=== PATIENT | female | born 1970 | race Caucasian/White ===

== ENCOUNTER 2019-06-10 06:00 | Outpatient (RCR) | payer MEDICARE, SELFPAY | END 2019-07-10 00:01 | LOC: PULRHB 06:00 | PROVIDERS: Family Provider Family Medicine; Visit Provider Family Medicine | DX: J44.9 Chronic obstructive pulmonary disease, unspecified (principal) | CPT/HCPCS: G0237 ×2; G0238 ×3; G0239 ==

== ENCOUNTER 2019-07-16 06:00 | Outpatient (RCR) | payer MEDICARE, SELFPAY | END 2019-08-10 23:59 | disposition home or self-care (01) | LOC: PULRHB 06:00 | PROVIDERS: Family Provider Family Medicine; PCP Family Medicine; Visit Provider Family Medicine | DX: I27.20 Pulmonary hypertension, unspecified (principal) | CPT/HCPCS: G0237 ==

== ENCOUNTER → 2019-07-24 14:55 | Outpatient (BNVA) | payer MEDICARE, SELFPAY | PROVIDERS: Family Provider Family Medicine; PCP Family Medicine; Visit Provider Anesthesiology | DX: M54.9 Dorsalgia, unspecified (principal); M79.602 Pain in left arm; M79.651 Pain in right thigh; M79.652 Pain in left thigh; Z79.891 Long term (current) use of opiate analgesic | CPT/HCPCS: 99214 ==

== ENCOUNTER 2019-08-14 12:34 | Outpatient (RCR) | payer MEDICARE, SELFPAY | END 2019-09-08 23:59 | disposition home or self-care (01) | LOC: PULRHB 12:34 | PROVIDERS: Family Provider Family Medicine; PCP Family Medicine; Visit Provider Family Medicine | DX: Z01.89 Encounter for other specified special examinations (principal) ==

== ENCOUNTER → 2019-09-21 11:32 | Outpatient (BNVA) | payer MEDICARE, SELFPAY | PROVIDERS: Family Provider Family Medicine; PCP Family Medicine; Visit Provider Nurse Practitioner | DX: M54.5 Low back pain (principal); M79.651 Pain in right thigh; M79.652 Pain in left thigh; M79.602 Pain in left arm; M50.90 Cervical disc disorder, unspecified, unspecified cervical region; Z79.891 Long term (current) use of opiate analgesic | CPT/HCPCS: 99214 ==

== ENCOUNTER 2019-09-25 19:27 | Emergency (ER) | payer MEDICARE, SELFPAY ==
[2019-09-25] VITALS (10 sets, daily range): BP systolic 150–194; BP diastolic 90–125; PULSE 82–113; RESP 12–22; TEMP 37.5; O2SAT 94–98; BMI 60.9
--- NOTE | 2019-09-25 20:17 | W.ED.CHESTPA ---
HPI - Chest Pain General: Chief Complaint: Chest Pain Stated Complaint: cp/sob Time Seen by Provider: 09/25/19 19:47 History of Present Illness: HPI narrative: 48-year-old female comes in with multiple complaints. Patient complains of chest pain leg pain some shortness of breath she does not associate the chest pain with exertion. She is extremely anxious. She denies vomiting or diarrhea dysuria urgency or frequency or fever. The symptoms been going on for several days. Associated symptoms: Deny abdominal pain, dyspnea, fever(s), nausea or vomiting Review of Systems Const: Denies: fever, chills, body aches, change in appetite, fatigue or malaise ENMT: Denies: throat pain, ear pain, nasal discharge or nasal congestion Card: Reports: chest pain; Denies: edema, shortness of breath on exertion or shortness of breath when lying down Resp: Denies: shortness of breath, productive cough or non-productive cough GI: Denies: abdominal pain, nausea, vomiting, vomiting blood, coffee grounds in vomit, diarrhea, constipation, bloating, blood in stool or black tarry stool : Denies: flank pain, difficulty urinating, painful urination, urinary frequency or urinary urgency Skin/Breast: Denies: rash or itching PFSH ED PFSH: Medical History (Updated 09/25/19 @ 23:48 by Arden Blake DO) Acute bilateral low back pain Acute neck pain Acute radicular low back pain Arm numbness Cervical disc disorder, unspecified, unspecified cervical region Chronic pain of left upper extremity Disc disorder Encounter for long-term opiate analgesic use Fibromyalgia muscle pain Morbid (severe) obesity due to excess calories Neoplasm related pain (acute) (chronic) Opioid contract exists Type 2 diabetes mellitus without complications Surgical History (Updated 09/21/19 @ 12:08 by SONYA Cohn) H/O elbow surgery H/O mastectomy 2011 H/O tubal ligation History of appendectomy History of cholecystectomy 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 Social History Smoking and tobacco status: never smoked Alcohol intake: never Physical Exam Const: COMMON NORMALS: no apparent distress GENERAL APPEARANCE: cooperative and comfortable ORIENTATION/CONSCIOUSNESS: Yes awake, Yes oriented to person, Yes oriented to place and Yes oriented to time HENMT: COMMON NORMALS: normocephalic, head/scalp atraumatic, hearing grossly normal bilaterally, external ears normal, EAC's normal, TM's normal bilaterally, nasal mucous membranes and turbinates normal, moist oral mucous membranes and oropharynx normal HEAD & SCALP: normocephalic and atraumatic NOSE: nasal mucous membranes and turbinates normal EXTERNAL EAR: Yes external ears normal EXTERNAL AUDITORY CANAL: EAC's normal TYMPANIC MEMBRANE: TM's normal bilaterally Eye: COMMON NORMALS: PERRL, EOMs intact bilaterally, conjunctivae normal and no scleral icterus CONJUNCTIVA: Yes conjunctivae normal PUPIL: Yes PERRL Neck/C-Spine: COMMON NORMALS: full ROM, no lymphadenopathy, supple and no JVD Lymph: LYMPHATIC: no lymphadenopathy noted and no lymphedema noted Resp: COMMON NORMALS: normal respiratory effort, no retractions, no use of accessory muscles and clear to auscultation bilaterally AUSCULTATION: clear to auscultation bilaterally Cardio: COMMON NORMALS: no JVD, regular rate, regular rhythm and no murmurs RATE: regular rate RHYTHM: regular rhythm GI: COMMON NORMALS: soft to palpation and no hepatosplenomegaly AUSCULTATION: Yes normoactive bowel sounds PALPATION: Yes soft, No tender, No guarding and Yes no hepatosplenomegaly Extremity: COMMON NORMALS: normal to inspection, normal capillary refill, no clubbing, cyanosis or edema, no calf tenderness and no pedal edema Neuro: SENSORIUM/ORIENTATION: Yes oriented to person, Yes oriented to place and Yes oriented to time Skin: COMMON NORMALS: no rashes or lesions noted GENERAL SKIN EXAM: no rashes or lesions noted Course ED course: CT of the chest shows a abnormality behind the breast however this is unchanged from in the past patient even recognize that this has been present before. At this point we do not find a PE she rules out for chest x-ray based on length of time she had symptoms and normal EKG and troponin. I think we can safely discharge her home she should follow-up with her oncologist for the CT abnormality to see if they recommend any further evaluation. We will also have case management set her up for a stress test. Vital Signs: Vital signs: Vital Signs Temperature 99.5 F 09/25/19 20:21 Pulse Rate 78 09/26/19 03:55 Respiratory Rate 18 09/26/19 03:55 Blood Pressure 175/90 09/26/19 03:55 Pulse Oximetry 96 09/26/19 03:55 MDM - Chest Pain Lab Data: Attestation: I reviewed the patient's lab results. Labs: Lab Results 09/25/19 09/25/19 09/25/19 Range/Units 20:40 20:40 20:40 WBC 8.3 (4.0-10.0) 10^3/ uL RBC 4.51 (4.1-5.3) 10^6/u L Hgb 14.0 (11.5-15.3) g/dL Hct 43.0 (37.0-47.0) % MCV 95.3 (81-99) fL MCH 31.0 (28.0-34.0) pg MCHC 32.6 (30.0-36.0) g/dL RDW 13.2 (12.1-15.1) % Plt Count 258 (130-400) 10^3/c mm MPV 10.4 (7.4-10.4) fL Neut % (Auto) 70.2 % Lymph % (Auto) 21.8 % Tucker % (Auto) 5.5 % Eos % (Auto) 1.7 % Baso % (Auto) 0.2 % Neut # (Auto) 5.8 (1.8-7.7) 10^3/u L Lymph # (Auto) 1.8 (0.8-4.8) 10^3/u L Tucker # (Auto) 0.5 (0.2-0.9) 10^3/u L Eos # (Auto) 0.1 (0.0-0.8) 10^3/u L Baso # (Auto) 0.0 (0.0-0.1) 10^3/u L Nucleated RBC % (a uto) 0 % Nucleated RBCs # 0.0 /100WBC Sodium 136 (136-145) mmol/L Potassium 4.2 (3.5-5.1) mmol/L Chloride 93 L (98-107) mmol/L Carbon Dioxide 30 H (22-29) mmol/L Anion Gap 17.2 (5-19) BUN 15 (6-20) mg/dL Creatinine 0.6 (0.5-0.9) mg/dL GFR Calculation 105.8 (90-130) mL/min Glucose 191 H (65-115) mg/dL Calculated Osmolal ity 283 L (285-295) mOsm/k g Calcium 10.7 H (8.5-10.5) mg/dL Total Bilirubin 0.4 (0.15-1.2) mg/dL AST 21 (0-32) U/L ALT 46 H (0-33) U/L Alkaline Phosphata se 86 (35-105) IU/L Troponin T Baselin e 6 (0-10) ng/mL Troponin T 120 Min [place] (0-10) ng/mL Delta Troponin T (0-10) ABS# NT-Pro-B Natriuret Pep 36 (0-125) pg/mL Total Protein 7.9 (6.6-8.7) g/dL Albumin 5.1 (3.5-5.2) g/dL Globulin 2.8 (1.3-4.6) g/dL Urine Color (Yellow) Urine Appearance (CLEAR) Urine pH (5-7) Ur Specific Gravit y (1.005-1.030) Urine Protein (Negative) Urine Glucose (UA) (Normal) Urine Ketones (Negative) Urine Blood (Negative) Urine Nitrate (Negative) Urine Bilirubin (NEGATIVE) Urine Urobilinogen (Negative) mg/dL Ur Leukocyte Keiko ase (Negative) 09/25/19 09/25/19 Range/Units 20:45 22:20 WBC (4.0-10.0) 10^3/ uL RBC (4.1-5.3) 10^6/u L Hgb (11.5-15.3) g/dL Hct (37.0-47.0) % MCV (81-99) fL MCH (28.0-34.0) pg MCHC (30.0-36.0) g/dL RDW (12.1-15.1) % Plt Count (130-400) 10^3/c mm MPV (7.4-10.4) fL Neut % (Auto) % Lymph % (Auto) % Tucker % (Auto) % Eos % (Auto) % Baso % (Auto) % Neut # (Auto) (1.8-7.7) 10^3/u L Lymph # (Auto) (0.8-4.8) 10^3/u L Tucker # (Auto) (0.2-0.9) 10^3/u L Eos # (Auto) (0.0-0.8) 10^3/u L Baso # (Auto) (0.0-0.1) 10^3/u L Nucleated RBC % (a uto) % Nucleated RBCs # /100WBC Sodium (136-145) mmol/L Potassium (3.5-5.1) mmol/L Chloride (98-107) mmol/L Carbon Dioxide (22-29) mmol/L Anion Gap (5-19) BUN (6-20) mg/dL Creatinine (0.5-0.9) mg/dL GFR Calculation (90-130) mL/min Glucose (65-115) mg/dL Calculated Osmolal ity (285-295) mOsm/k g Calcium (8.5-10.5) mg/dL Total Bilirubin (0.15-1.2) mg/dL AST (0-32) U/L ALT (0-33) U/L Alkaline Phosphata se (35-105) IU/L Troponin T Baselin e (0-10) ng/mL Troponin T 120 Min [place] 6.25 (0-10) ng/mL Delta Troponin T 0.25 (0-10) ABS# NT-Pro-B Natriuret Pep (0-125) pg/mL Total Protein (6.6-8.7) g/dL Albumin (3.5-5.2) g/dL Globulin (1.3-4.6) g/dL Urine Color Yellow (Yellow) Urine Appearance Clear (CLEAR) Urine pH 6 (5-7) Ur Specific Gravit y 1.010 (1.005-1.030) Urine Protein Neg (Negative) Urine Glucose (UA) Norm (Normal) Urine Ketones Negative (Negative) Urine Blood Neg (Negative) Urine Nitrate Negative (Negative) Urine Bilirubin Neg (NEGATIVE) Urine Urobilinogen Norm (Negative) mg/dL Ur Leukocyte Keiko ase Negative (Negative) Imaging Data^: CT Chest: Radiologist's impression: PROCEDURE INFORMATION: Exam: CT Angiography Chest With Contrast Exam date and time: 09/25/2019 12:51 AM Age: 48 years old Clinical indication: Shortness of breath; Chest pain; Prior surgery; Surgery type: Lt breast lumpectomy; Patient HX: HX breast CA, prior pe; Additional info: Dyspnea/chest pain TECHNIQUE: Imaging protocol: Computed tomographic angiography of the chest with intravenous contrast. 3D rendering: MIP and/or 3D reconstructed images were created by the technologist. Total DLP: 603.87 mGy-cm Radiation optimization: All CT scans at this facility use at least one of these dose optimization techniques: automated exposure control; mA and/or kV adjustment per patient size (includes targeted exams where dose is matched to clinical indication); or iterative reconstruction. Contrast material: OMNI 350; Contrast volume: 84 ml; Contrast route: 20G; COMPARISON: CTA Chest-Pulmonary Emb [id number] 03/02/2019 8:30 AM FINDINGS: Pulmonary arteries: Limitation for detailed pulmonary arterial assessment due to film contrast timing delays and diminished contrast intensity most prominent within aorta. No definite visualization of pulmonary embolus. Streak artifact within subsegmental artery to the right upper lung. Aorta: Unremarkable. No aortic aneurysm. No aortic dissection. Lungs: Unremarkable. No consolidation. No masses. Pleural space: Unremarkable. No pneumothorax. No pleural effusion. Heart: Rounded filling defect within the right atrium is slightly larger compared to the prior CT measuring 2.4 cm. Right to left ventricular ratio 0.9. Liver: Fatty infiltration of the liver. Gallbladder and bile ducts: Postoperative cholecystectomy. Spleen: Calcification within the spleen. Lymph nodes: Unremarkable. No enlarged lymph nodes. Bones/joints: Degenerative change of the spine. Soft tissues: Skin thickening of the left breast with stranding surgical change. Posterior left breast in adjacent to the outer chest wall musculature thick-walled low attenuating central cystic or fluid attenuation mass partially containing calcification slightly larger compared to the prior CT measuring 4.8 cm by 3.[address]/CT angio chest PE protcl [id number] IMPRESSION: 1. No visualized pulmonary embolus with limitations secondary to patient body habitus and delayed film contrast timing. 2. Low attenuating central fluid or cystic structure deep posterior left breast or adjacent chest wall slightly larger as compared to 03/02/2019. While the findings could reflect persistent postoperative seroma correlation to other surveillance imaging and recent PET imaging is recommended for complete exclusion of other neoplastic etiology. Correlation for any history of radiation would be useful. 3. Equivocal filling defect within the right atrium versus venous contrast mixing, probably the latter. Correlation to cardiac assessment is recommended. 4. Fatty infiltration of the liver. Radiation Dose CTDIVOL = (mGy): DLP = 603.87 (mGy-cm) Dictated By:Yaquelin Perez DO Discharge Plan Discharge Patient Disposition: Home, Self-Care Clinical Impression: Atypical chest pain Condition: Stable Prescriptions: New aspirin 81 mg tablet,chewable 81 mg PO DAILY Qty: 30 RF: 0 No Action cholecalciferol (vitamin D3) 50,000 unit capsule 50,000 unit PO .WEEKLY RF: 0 albuterol sulfate [ProAir HFA] 90 mcg/actuation HFA aerosol inhaler 1 inh INHALATION DAILY PRN (Reason: Shortness Of Breath) RF: 0 lorazepam [Ativan] 1 mg tablet 1 mg PO TID PRN (Reason: Anxiety) RF: 0 promethazine 25 mg tablet 25 mg PO DAILY PRN (Reason: Nausea) RF: 0 furosemide [Lasix] 20 mg tablet 20 mg PO PRN PRN (Reason: UNKNOWN) RF: 0 potassium chloride 10 mEq capsule, extended release 10 meq PO DAILY PRN (Reason: UNKNOWN) RF: 0 albuterol 90 mcg/actuation aerosol 90 mcg INHALATION DAILY RF: 0 magnesium oxide 400 mg magnesium capsule 800 mg PO BID RF: 0 diltiazem HCl [Cartia XT] 120 mg capsule,extended release 24hr 360 mg PO DAILY RF: 0 Humalog U-100 Insulin 100 unit/mL cartridge 1 sliding scale dose SUBCUT .COMPLEX RF: 0 pseudoephedrine HCl 30 mg tablet 30 mg PO DAILY PRN (Reason: UNKNOWN) RF: 0 metformin 500 mg tablet 500 mg PO BID RF: 0 cholecalciferol (vitamin D3) 2,000 unit tablet 2,000 unit PO DAILY RF: 0 enalapril maleate 10 mg tablet 10 mg PO DAILY RF: 0 rosuvastatin [Crestor] 5 mg tablet 10 mg PO .WEEKLY RF: 0 tizanidine 4 mg tablet 4 mg PO TID PRN (Reason: muscle spasticity) Qty: 90 RF: 1 hydrocodone-acetaminophen 10-325 mg tablet 2 tab PO QID PRN (Reason: pain) 30 Days Qty: 240 RF: 0 Vitamin C 500 mg Tablet 250 mg PO DAILY RF: 0 Discharge Orders: Discharge Order (Routine); Ordered 09/25/19 Ordered By: Arden Blake Referrals: Luis Red MD [Primary Care Provider] - Discharge Diet: Usual diet Discharge Activity: Limit activity as instructed Activity Restrictions/Additional Instructions: Case management will call with appointment for stress testing. Discharge Date/Time: 09/26/19 03:56 Coding Level of Care Code ED Field Project Manager for Payton Carty
--- NOTE | 2019-09-25 20:23 | XR_ITS ---
WS: [id number] XR chest 1V portable [id number] REASON FOR EXAM: dyspnea/cough FINDINGS: The cardiac silhouette is not enlarged. The lung hendrickson are well aerated. There is no pneumonia, pleural effusion, pulmonary edema, or mass e ffect. The hilum and apices normal. There is degenerate changes with spurring to the apophyseal joints. XR/XR chest 1V portable [id number] IMPRESSION: Negative chest for active pathology.
--- NOTE | 2019-09-25 20:23 | ECG_ITS ---
Measurements Intervals [place] Rate: 83 P: 61 ME: 178 QRS: -14 QRSD: 92 T: 32 QT: 378 QTc: 446 SINUS RHYTHM Compared to ECG 07/11/2018 18:15:44 No significant changes Electronically Signed On 09-27-2019 12:44:20 CDT by Spring Paulino [id number]
[2019-09-25 20:53] LABS: Basophils % 0.2 %; Eosinophils # 0.1 10^3/uL (0.0-0.8); Eosinophils % 1.7 %; Lymphocytes # 1.8 10^3/uL (0.8-4.8); Lymphocytes % 21.8 %; Mean Corpuscular HGB Conc 32.6 g/dL (30.0-36.0); Mean Corpuscular Volume 95.3 fL (81-99); Mean Platelet Volume 10.4 fL (7.4-10.4); Monocytes # 0.5 10^3/uL (0.2-0.9); Monocytes % 5.5 %; Neutrophils # 5.8 10^3/uL (1.8-7.7); Neutrophils % 70.2 %; Nucleated Red Blood Cells % 0 %; Platelet Count 258 10^3/cmm (130-400); Red Blood Count 4.51 10^6/uL (4.1-5.3); Red Cell Distribution Width 13.2 % (12.1-15.1); White Blood Count 8.3 10^3/uL (4.0-10.0)
[2019-09-25 21:06] LABS: Troponin(5th) Baseline 6 ng/mL (0-10)
[2019-09-25 21:08] LABS: Add Urine Microscopic? NO
[2019-09-25 21:09] LABS: Bilirubin Urine Neg (NEGATIVE); Blood Urine Neg (Negative); Glucose Urine UA Norm (Normal); Ketones Urine Negative (Negative); Leukocyte Esterase Urine Negative (Negative); Nitrate Urine Negative (Negative); Protein Urine Neg (Negative); Urine Appearance Clear (CLEAR); Urine Color Yellow (Yellow); Urobilinogen Urine Norm (Negative); pH Urine 6 (5-7)
[2019-09-25 21:24] LABS: Alanine Aminotransferase 46 U/L (0-33); Albumin Level 5.1 g/dL (3.5-5.2); Alkaline Phosphatase 86 IU/L (35-105); Anion Gap 17.2 (5-19); Aspartate Amino Transferase 21 U/L (0-32); Blood Urea Nitrogen 15 mg/dL (6-20); Calcium 10.7 mg/dL (8.5-10.5); Carbon Dioxide 30 mmol/L (22-29); Chloride 93 mmol/L (98-107); Globulin 2.8 g/dL (1.3-4.6); Glomerular Filtration Rate 105.8 mL/min (90-130); Glucose 191 mg/dL (65-115); NT Pro B Type Natriuretic Pept 36 pg/mL (0-125); Osmolality Calculated 283 mOsm/kg (285-295); Potassium 4.2 mmol/L (3.5-5.1); Sodium 136 mmol/L (136-145); Total Bilirubin 0.4 mg/dL (0.15-1.2); Total Protein 7.9 g/dL (6.6-8.7)
--- NOTE | 2019-09-25 22:23 | ECG_ITS ---
Measurements Intervals [place] Rate: 79 P: 63 CT: 156 QRS: -7 QRSD: 90 T: 18 QT: 380 QTc: 437 SINUS RHYTHM Compared to ECG 07/11/2018 18:15:44 No significant changes Electronically Signed On 09-27-2019 12:48:58 CDT by Spring Paulino [email or web address]
[2019-09-25 22:49] LABS: Troponin 5 2HR 6.25 ng/mL (0-10); Troponin 5 2HR Delta 0.25 ABS# (0-10)
--- NOTE | 2019-09-25 23:56 | CTR_ITS ---
PROCEDURE INFORMATION: Exam: CT Angiography Chest With Contrast Exam date and time: 09/25/2019 12:51 AM Age: 48 years old Clinical indication: Shortness of breath; Chest pain; Prior surgery; Surgery type: Lt breast lumpectomy; Patient HX: HX breast CA, prior pe; Additional info: Dyspnea/chest pain TECHNIQUE: Imaging protocol: Computed tomographic angiography of the chest with intravenous contrast. 3D rendering: MIP and/or 3D reconstructed images were created by the technologist. Total DLP: 603.87 mGy-cm Radiation optimization: All CT scans at this facility use at least one of these dose optimization techniques: automated exposure control; mA and/or kV adjustment per patient size (includes targeted exams where dose is matched to clinical indication); or iterative reconstruction. Contrast material: OMNI 350; Contrast volume: 84 ml; Contrast route: 20G; COMPARISON: CTA Chest-Pulmonary Emb [id number] 03/02/2019 8:30 AM FINDINGS: Pulmonary arteries: Limitation for detailed pulmonary arterial assessment due to film contrast timing delays and diminished contrast intensity most prominent within aorta. No definite visualization of pulmonary embolus. Streak artifact within subsegmental artery to the right upper lung. Aorta: Unremarkable. No aortic aneurysm. No aortic dissection. Lungs: Unremarkable. No consolidation. No masses. Pleural space: Unremarkable. No pneumothorax. No pleural effusion. Heart: Rounded filling defect within the right atrium is slightly larger compared to the prior CT measuring 2.4 cm. Right to left ventricular ratio 0.9. Liver: Fatty infiltration of the liver. Gallbladder and bile ducts: Postoperative cholecystectomy. Spleen: Calcification within the spleen. Lymph nodes: Unremarkable. No enlarged lymph nodes. Bones/joints: Degenerative change of the spine. Soft tissues: Skin thickening of the left breast with stranding surgical change. Posterior left breast in adjacent to the outer chest wall musculature thick-walled low attenuating central cystic or fluid attenuation mass partially containing calcification slightly larger compared to the prior CT measuring 4.8 cm by 3.[address]/CT angio chest PE protcl [id number] IMPRESSION: 1. No visualized pulmonary embolus with limitations secondary to patient body habitus and delayed film contrast timing. 2. Low attenuating central fluid or cystic structure deep posterior left breast or adjacent chest wall slightly larger as compared to 03/02/2019. While the findings could reflect persistent postoperative seroma correlation to other surveillance imaging and recent PET imaging is recommended for complete exclusion of other neoplastic etiology. Correlation for any history of radiation would be useful. 3. Equivocal filling defect within the right atrium versus venous contrast mixing, probably the latter. Correlation to cardiac assessment is recommended. 4. Fatty infiltration of the liver. Radiation Dose CTDIVOL = (mGy): DLP = 603.87 (mGy-cm)
[2019-09-26] VITALS (9 sets, daily range): BP systolic 175; BP diastolic 90; PULSE 78–105; RESP 12–18; O2SAT 95–97
--- NOTE | 2019-09-26 14:45 | DCPLANNER ---
government relations manager had an outpatient order for a stress test for patient. government relations manager faxed order for stress test to centralized scheduling. government relations manager will call for appointment information.
[2019-09-26] MEDS: iohexol 350 mg/mL 100 mL Btl IV (15:52)
--- NOTE | 2019-09-27 09:37 | DCPLANNER ---
Patient has a follow up appointment scheduled for Tuesday, October 17, 2019 at 9:15 for a stress test.
--- NOTE | 2019-12-04 07:46 | DCPLANNER ---
Patient did not attend stress test.
== END 2019-09-26 03:56 | disposition home or self-care (01) ==
PROVIDERS: Emergency Provider Family Medicine; Family Provider Family Medicine; PCP Family Medicine
DX: R07.89 Other chest pain (principal); E11.9 Type 2 diabetes mellitus without complications; Z79.4 Long term (current) use of insulin
CPT/HCPCS: 12345; 36415; 71045; 71275; 80053; 81003; 83880; 84484; 85025; 93005; 93010; 99284; A9270; Q9967

== ENCOUNTER 2019-11-01 14:31 | Outpatient (CLI) | payer MEDICARE, SELFPAY ==
[2019-11-01 17:49] LABS: Estmated Average Glucose 154
[2019-11-01 17:59] LABS: Basophils % 0.3 %; Eosinophils # 0.2 10^3/uL (0.0-0.8); Eosinophils % 2.2 %; Hematocrit 39.9 % (37.0-47.0); Hemoglobin 12.8 g/dL (11.5-15.3); Lymphocytes # 1.2 10^3/uL (0.8-4.8); Lymphocytes % 17.1 %; Mean Corpuscular HGB Conc 32.1 g/dL (30.0-36.0); Mean Corpuscular Hemoglobin 30.5 pg (28.0-34.0); Mean Corpuscular Volume 95.2 fL (81-99); Mean Platelet Volume 10.7 fL (7.4-10.4); Monocytes # 0.3 10^3/uL (0.2-0.9); Monocytes % 4.5 %; Neutrophils # 5.4 10^3/uL (1.8-7.7); Neutrophils % 75.3 %; Nucleated Red Blood Cells % 0 %; Platelet Count 218 10^3/cmm (130-400); Red Blood Count 4.19 10^6/uL (4.1-5.3); Red Cell Distribution Width 13.2 % (12.1-15.1); White Blood Count 7.2 10^3/uL (4.0-10.0)
[2019-11-01 18:02] LABS: Alanine Aminotransferase 21 U/L (0-33); Albumin Level 4.6 g/dL (3.5-5.2); Alkaline Phosphatase 69 IU/L (35-105); Anion Gap 19.9 (5-19); Aspartate Amino Transferase 17 U/L (0-32); Blood Urea Nitrogen 13 mg/dL (6-20); Calcium 9.9 mg/dL (8.5-10.5); Carbon Dioxide 28 mmol/L (22-29); Chloride 97 mmol/L (98-107); Globulin 3.1 g/dL (1.3-4.6); Glomerular Filtration Rate 88.6 mL/min (90-130); Glucose 257 mg/dL (65-115); Magnesium 1.6 mg/dL (1.7-2.3); Osmolality Calculated 297 mOsm/kg (285-295); Potassium 3.9 mmol/L (3.5-5.1); Sodium 141 mmol/L (136-145); Total Bilirubin 0.3 mg/dL (0.15-1.2); Total Protein 7.7 g/dL (6.6-8.7)
[2019-11-01 21:35] LABS: 25 Hydroxy Vitamin D 22 ng/mL (30-100)
--- NOTE | 2019-11-02 07:23 | ONC FU_ITS ---
Dr. Kenyon Patient Follow-Up Note Patient: Neeru Cedillo Unit #: [id number]: 1970 Dicatated By: Jeremy Kenyon M.D.Date of Visit:Nov 01, 2019 Onc Med Follow-up/Prog Note Chief Complaint: Breast cancer. History of Present Illness: This is a 48 year-old woman with grade 3 invasive ductal carcinoma of the left breast, stage IIB (T2, N1, M0), ER/VT negative and HER-2/enoc negative. She had presented in February 2012 with a lump in the left breast. Mammogram did show some architectural distortion which was new from a study in November 2009. Ultrasound showed an irregular mass measuring 1.0 x 1.3 x 2 cm which was felt to be suspicious. Needle biopsy of the mass did confirm high-grade invasive carcinoma which was ER/VT negative and HER-2/enoc negative. She was then referred to [facility] for further treatment. Evaluation there included breast MRI, and on that study the tumor reportedly measured 2.9 cm. She also underwent staging evaluation with bone scan and CT scans of the chest and abdomen/pelvis. The only significant finding was an indeterminate 1.9 cm hepatic lesion which on MRI was felt to be consistent with benign hemangioma. At that time, she also had biopsy proven involvement in a palpable left axillary lymph node. She had clinical stage IIB disease (T2, N1, M0). She was given neoadjuvant chemotherapy with 4 cycles of Taxotere/cyclophosphamide. She had a good clinical response to the chemotherapy. She then underwent left partial mastectomy and left axillary lymph node dissection on 07/10/2012. Pathology showed residual grade 3/3 invasive ductal carcinoma measuring 1.8 centimeters in maximum diameter. The final margins were negative. There was no involvement in 12 axillary lymph nodes. Her post treatment staging was ypT1c, ypN0. She then completed radiation to the left breast. On a follow-up visit at [facility] in 2015 she was found to have an abnormal breast MRI. Her staging PET/CT reportedly showed involvement in lymph nodes and nerves. She underwent surgical biopsy which confirmed recurrent triple negative breast cancer. Her subsequent treatment included 4 cycles of carboplatin/Taxol chemotherapy followed by radiation. She completed treatment on 06/02/2016. She then continued follow-up at [facility], including regular surveillance mammograms and breast MRI. She also had follow-up with a transport aircrewman and a liver specialist. 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 She has type 2 diabetes. She has mild mitral regurgitation, and her records indicate that she has had heart failure with normal left ventricular function. She also has been evaluated for possible cardiac arrhythmia. In September [address] pulmonary angiogram showed filling defects within a right lower lobe tertiary pulmonary artery suggestive of pulmonary embolism. She started anticoagulation with rivaroxaban, but she had an apparent adverse reaction to it, and she subsequently changed to warfarin. She stopped anticoagulation in September 2014. INTERIM HISTORY: Due to the coronavirus pandemic, she had missed her scheduled followup visit at [facility] in September. She is seen now with multiple complaints. The most significant is that she has had increased pain and swelling in the left chest wall and left arm. She also has increased swelling in the left breast and pain in both breasts. She reports having numbness in the ulnar distribution of the left arm and hand. She has no energy, and her activity has been further limited due to the pain. Her ECOG score is 2. Her appetite varies. She reports having had fever intermittently for a month, though it had quit sometime last month. She has shortness of breath. She has a sensation of having a deep cough. She has discomfort in her chest. She has nausea at least 3 or 4 times a week. She has mild constipation. She has frequent urination. She also has some pain in the lower back. She does not complain of headache. She has dizziness with position changes. She has no other focal neurologic symptoms. Medications: Albuterol Sulfate HFA Aerosol, solution Inhalation PRN, Ativan 0.5 - 1 (1 mg) Tablet Oral t.i.d. PRN, Cartia XT 2 Tablet (of 180 mg) Capsule SR 24 HR Oral daily, Cholecalciferol 2 (09341 Units) Tablet Oral q 14 days, Cholecalciferol 1 (2000 Units) Tablet Oral daily, HumuLIN R Injection Take as Directed, Hydrocodone-Acetaminophen 2 Tablet (of 10-325 mg) Oral four times a day PRN, Lasix 1 Tablet (of 40 mg) Oral daily PRN, Magnesium 2 (400 mg) Capsule Oral b.i.d., metFORMIN HCl 1 Tablet (of 1000 mg) Oral daily, Morphine Sulfate (Concentrate) 0.25 - 0.5 (10 mg/0.5mL) Solution Oral q 2 to 3 hours PRN, Promethazine HCl 1 (25 mg) Tablet Oral q 6 hours PRN, Questran (10 g/dose) Powder Oral Take as Directed, Zanaflex 1 (4 mg) Tablet Oral PRN Allergies: BIAXIN, COMPAZINE, DEMEROL, DILAUDID, DOXYCYCLINE, DROPERIDOL, ERYTHROMYCIN, Metoprolol Tartrate, PCN, TraMADol HCl, VERAPAMIL, Xarelto, and ZOFRAN. Review of Systems: Constitutional - She has no energy. She does some light housework, but she has restrictions due to increased swelling in her left arm. Her appetite comes and goes. Her weight is stable. She reports having had fever for a month, but it quit sometime last month. No fever today. No chills, hot flashes, or night sweats. ECOG score is 2, ENMT - No sinus congestion/drainage. No mouth sores. No sore throat or difficulty swallowing, Hematologic/Lymphatic - No abnormal bruising or bleeding, Breasts - She has swelling in her left breast area and pain in both breasts, Respiratory - No shortness of breath. No cough. No pleuritic pain or hemoptysis, Cardiovascular - No angina pain. No palpitations, Gastrointestinal - She has chronic nausea. No vomiting. No heartburn or acid reflux. She has mild constipation. No blood in the stool or black stools, Genitourinary (F) - No dysuria or hematuria. She has urinary frequency. No urgency or incontinence, Musculoskeletal - She has pain in her left arm and in her lower back, Integumentary - No skin complications, Neurologic - No headaches. She has dizziness with positional changes. She has numbness in her left hand. She has no other focal neurologic symptoms, Psychiatric - She has anxiety and depression. She has chronic insomnia, but lately she has been sleeping all the time. Vital Signs: Performed on Nov 01, 2019 14:35 Height - 64.00 in Weight - 358.6 lbs (HIGH) BSA - 2.51 sq.m BMI - 61.55 (HIGH) Temperature - 97.5 F (LOW) Pulse - 90 /min Respiration - 26 /min BP - 160/90 mm(hg) (HIGH) O2 Sat - 96 % Pain - 7 Physical Examination: Constitutional - She does not appear acutely ill, Eyes - Sclerae nonicteric. Conjunctivae clear, ENMT - No lesions noted in the oral cavity, Hematologic/Lymphatic - No cervical or clavicular adenopathy, Respiratory - Lungs are clear with good air movement bilaterally, Cardiovascular - Heart rhythm is regular. There is a II/ systolic murmur. There is no gallop or rub noted, Breasts - There is some tenderness in the right breast. There is no mass palpable. There is tenderness along with swelling and induration in the left breast. There is no discrete mass palpable. There is significant swelling and induration in the upper left chest wall extending to the anterior axillary fold. The axillary area is also generally tender. There is no discrete mass palpable. There is no axillary adenopathy, Abdomen - Distended. Liver and spleen are not enlarged. There is no abdominal mass or ascites noted and there is no inguinal adenopathy, Extremities - There appears to be some increase in the left arm lymphedema. There is mild pedal edema. Dorsalis pedis pulses are palpable bilaterally, Integumentary - There is no skin eruption, Neurologic - No focal neurologic deficits noted. Impression: 1. The patient was diagnosed in March 2012 with grade 3 invasive ductal carcinoma of the left breast, stage IIB (T2, N1, M0), ER/VT negative and HER-2/enoc negative. 2. Her treatment included neoadjuvant chemotherapy with 4 cycles of cyclophosphamide/Taxotere followed by left partial mastectomy and left axillary lymph node dissection on 07/10/2012. She then completed radiation to the left breast. 3. She had biopsy proven recurrence in the left breast. Her treatment included chemotherapy with 4 cycles of carboplatin/Taxol followed by additional radiation, completed on 06/02/2016. 4. She had evidence of pulmonary embolism by CT pulmonary angiogram in September 2013. She was treated initially with rivaroxaban and subsequently with warfarin. She stopped anticoagulation in September 2014. Her other medical illnesses include: 5. Hypertension. 6. Type II diabetes. 7. Mild asthma. 8. Pulmonary hypertension. 9. Obstructive sleep apnea. 10. She has chronic muscular skeletal pain and fatigue, consistent with fibromyalgia. 11. She has degenerative arthritis/degenerative disease of the spine. 12. Anxiety/depression. 13. She has had evidence of iron deficiency anemia. She presents with multiple complaints, including swelling and pain in the left chest wall/axillary area and pain in both breasts. There is also increased pain/swelling and numbness in the left arm. The findings are suspicious for recurrence in the chest wall and/or axilla. Plan: She will laboratory studies today to include CBC, CMP, sed rate, 25-hydroxy vitamin D level, TSH, and hemoglobin A1c. She will be scheduled for diagnostic mammograms, and she will be scheduled for a restaging PET/CT. She will have further evaluation as indicated. Signed By: Jeremy Kenyon M.D. <<Signature on File>>
== END 2019-11-01 14:32 | disposition home or self-care (01) ==
PROVIDERS: Family Provider Family Medicine; PCP Family Medicine; Visit Provider Internal Medicine Medical Oncology
DX: Z85.3 Personal history of malignant neoplasm of breast (principal); I10 Essential (primary) hypertension; J45.909 Unspecified asthma, uncomplicated; I27.20 Pulmonary hypertension, unspecified; G47.33 Obstructive sleep apnea (adult) (pediatric); M79.7 Fibromyalgia; M47.9 Spondylosis, unspecified; F41.8 Other specified anxiety disorders; E55.9 Vitamin D deficiency, unspecified; I34.0 Nonrheumatic mitral (valve) insufficiency; N63.20 Unspecified lump in the left breast, unspecified quadrant; N64.4 Mastodynia; R53.83 Other fatigue; D50.9 Iron deficiency anemia, unspecified; Z92.21 Personal history of antineoplastic chemotherapy; Z92.3 Personal history of irradiation; Z90.12 Acquired absence of left breast and nipple; Z79.4 Long term (current) use of insulin; Z79.891 Long term (current) use of opiate analgesic; Z86.711 Personal history of pulmonary embolism
CPT/HCPCS: 36415; 80053; 82306; 83036; 83735; 84443; 85025; 99214

== ENCOUNTER 2019-11-02 12:40 | Outpatient (CLI) | payer MEDICARE, SELFPAY ==
--- NOTE | 2019-11-02 13:06 | MM_ITS ---
WS: [id number] BILATERAL DIGITAL DIAGNOSTIC MAMMOGRAM MAMMOGRAPHY WITH CAD CLINICAL INFORMATION: HX OF BREAST CANCER. Left breast lump per patient adjacent to the surgical site . COMPARISON: March 27, 2018 TECHNIQUE: Bilateral CC, MLO, and ML views. FINDINGS: Scattered fibroglandular densities bilaterally. Stable punctate calcifications left breast. Left dominic st parenchymal volume loss with treatment-related changes and skin thickening. This is unchanged from previous. Palpable marker left breast adjacent to the lumpectomy site. No evidence of mammographic abnormality in this area. DUE TO THE PALPABLE NATURE RECOMMEND ULTRASOUND IN THIS AREA LEFT BREAST FOR FURTHER E VALUATION. Right breast is unchanged in appearance. MM/[place] [id number] IMPRESSION: BI-RADS: 0-Incomplete: Need additional imaging evaluation FOLLOW UP: Need Additional Imaging
== END 2019-11-02 12:41 | disposition home or self-care (01) ==
LOC: ONCMED 12:43
PROVIDERS: Family Provider Family Medicine; PCP Family Medicine; Visit Provider Internal Medicine Medical Oncology
DX: Z85.3 Personal history of malignant neoplasm of breast (principal); N63.20 Unspecified lump in the left breast, unspecified quadrant; N64.4 Mastodynia
CPT/HCPCS: 77066

== ENCOUNTER 2019-11-15 10:07 | Outpatient (CLI) | payer MEDICARE, SELFPAY ==
--- NOTE | 2019-11-15 10:15 | US_ITS ---
WS: [id number] ULTRASOUND BREAST LEFT TECHNIQUE: Ultrasound left breast focused area of concern. CLINICAL INFORMATION: DX HISTORY OF BREAST CA, LEFT BREAST LUMP COMPARISON: Diagnostic mammography November 02, 2019 and ultrasound January 09, 2015. Additional prior mamm ograms dating back to January 09, 2015 FINDINGS: Ultrasound left breast 11:00 position in the area of palpable concern and area of previously removed adjacent loop recorder. Additional ultrasound performed at the 1:00, 4:00, and 10:00 positions in the area of patient concern s. There is very dense shadowing tissue at the 11:00 position in the area of reported prior loop recorde r consistent with postoperative fibrosis. In the adjacent area of palpable concern, at the 11:00 position, no evidence of pathologic mass or le nilam. No lesions to target for biopsy in this area. No suspicious lesions identified in the remaining areas of concern at the 1:00, 4:00, 10:00 positions . US/US breast LT complete [id number] IMPRESSION: BI-RADS 2 BENIGN FOLLOW UP: Recommend return to annual diagnostic mammogram
== END 2019-11-15 10:08 | disposition home or self-care (01) ==
LOC: RAD 10:09
PROVIDERS: Visit Provider Internal Medicine Medical Oncology
DX: N63.20 Unspecified lump in the left breast, unspecified quadrant (principal); Z85.3 Personal history of malignant neoplasm of breast
CPT/HCPCS: 76641

== ENCOUNTER 2019-12-01 12:21 | Emergency (ER) | payer MEDICARE, SELFPAY ==
[2019-12-01 12:42] VITALS: BP 183/126; PULSE 82; RESP 18; TEMP 36.8; O2SAT 94; BMI 61.2
--- NOTE | 2019-12-01 13:11 | CTR_ITS ---
PROCEDURE INFORMATION: Exam: CT Abdomen And Pelvis With Contrast Exam date and time: 12/01/2019 1:21 PM Age: 49 years old Clinical indication: Abdominal pain; Generalized; Patient HX: C/O abd pain w constipation x 2 weeks TECHNIQUE: Imaging protocol: Computed tomography of the abdomen and pelvis with intravenous contrast. Radiation optimization: All CT scans at this facility use at least one of these dose optimization techniques: automated exposure control; mA and/or kV adjustment per patient size (includes targeted exams where dose is matched to clinical indication); or iterative reconstruction. Contrast material: OMNI 300; Contrast volume: 95 ml; Contrast route: 20G; COMPARISON: CT abdomen pelvis w con* [id number] 05/10/2019 9:24 PM RADIATION DOSE METRICS: Total DLP: 1841.66 mGy-cm FINDINGS: Liver: Findings consistent with fatty infiltration of the liver are identified. Gallbladder and bile ducts: There has been a cholecystectomy. Pancreas: Normal. No ductal dilation. Spleen: Normal. No splenomegaly. Adrenals: Normal. No mass. Kidneys and ureters: There is a 1.2 cm calcification in the inferior right kidney. No hydronephrosis. Stomach and bowel: There is questionable wall thickening of the transverse colon. For example, as seen on series 2, image 51 and coronal image 70. No pneumatosis. No bowel obstruction. Appendix: No evidence of appendicitis. Intraperitoneal space: Unremarkable. No free air. No significant fluid collection. Vasculature: Unremarkable. No abdominal aortic aneurysm. Lymph nodes: Unremarkable. No enlarged lymph nodes. Bladder: Unremarkable as visualized. Reproductive: Unremarkable as visualized. Bones/joints: Unremarkable. No acute fracture. Soft tissues: There is a small supraumbilical fat containing ventral hernia. CT/CT abdomen pelvis w con* [id number] IMPRESSION: There is questionable localized colitis of the transverse colon as described above.Clinical correlation is advised. Radiation Dose CTDIVOL = (mGy): DLP = 1841.66 (mGy-cm)
[2019-12-01 13:41] LABS: Basophils % 0.2 %; Eosinophils # 0.2 10^3/uL (0.0-0.8); Eosinophils % 3.7 %; Hemoglobin 12.7 g/dL (11.5-15.3); Lymphocytes # 1.1 10^3/uL (0.8-4.8); Lymphocytes % 17.8 %; Mean Corpuscular HGB Conc 31.8 g/dL (30.0-36.0); Mean Corpuscular Hemoglobin 30.6 pg (28.0-34.0); Mean Corpuscular Volume 96.4 fL (81-99); Mean Platelet Volume 9.9 fL (7.4-10.4); Monocytes # 0.4 10^3/uL (0.2-0.9); Monocytes % 6.2 %; Neutrophils # 4.3 10^3/uL (1.8-7.7); Neutrophils % 71.6 %; Nucleated Red Blood Cells % 0 %; Platelet Count 197 10^3/cmm (130-400); Red Blood Count 4.15 10^6/uL (4.1-5.3); Red Cell Distribution Width 13.4 % (12.1-15.1); White Blood Count 5.9 10^3/uL (4.0-10.0)
[2019-12-01 13:45] VITALS: RESP 18
[2019-12-01] MEDS: morphine 4 mg/mL SDV 1 mL IVP (13:45)
[2019-12-01] MEDS: metoclopramide 5 mg/mL SDV 2 mL 10 MG IV (13:46)
[2019-12-01] MEDS: sodium chloride 0.9% 1,000 ML 100 ML IV (13:46)
[2019-12-01 13:56] LABS: Alanine Aminotransferase 30 U/L (0-33); Albumin Level 4.4 g/dL (3.5-5.2); Alkaline Phosphatase 72 IU/L (35-105); Anion Gap 16.3 (5-19); Aspartate Amino Transferase 20 U/L (0-32); Blood Urea Nitrogen 7 mg/dL (6-20); Calcium 9.9 mg/dL (8.5-10.5); Carbon Dioxide 26 mmol/L (22-29); Chloride 100 mmol/L (98-107); Globulin 2.9 g/dL (1.3-4.6); Glomerular Filtration Rate 105.4 mL/min (90-130); Glucose 158 mg/dL (65-115); Lipase 11 U/L (13-60); Osmolality Calculated 285 mOsm/kg (285-295); Potassium 4.3 mmol/L (3.5-5.1); Sodium 138 mmol/L (136-145); Total Bilirubin 0.5 mg/dL (0.15-1.2); Total Protein 7.3 g/dL (6.6-8.7)
[2019-12-01] MEDS: iohexol 300 mg/mL 100 mL Btl IV (14:26)
[2019-12-01 14:29] LABS: Bilirubin Urine Neg (NEGATIVE); Blood Urine Neg (Negative); Glucose Urine UA Norm (Normal); Ketones Urine Negative (Negative); Leukocyte Esterase Urine Negative (Negative); Nitrate Urine Negative (Negative); Protein Urine Neg (Negative); Specific Gravity, Urine 1.005 (1.005-1.030); Urine Appearance SL Hazy (CLEAR); Urine Color Yellow (Yellow); Urobilinogen Urine Norm (Negative); pH Urine 5 (5-7)
--- NOTE | 2019-12-01 14:30 | W.ED.ABDPA2 ---
HPI - Abdominal Pain General: Chief Complaint: Abdominal Pain Stated Complaint: abd pain, constipation, nausea Time Seen by Provider: 12/01/19 12:52 History of Present Illness: HPI narrative: Neeru is a nice 49-year-old female who comes in complaining of abdominal pain. She is been constipated for over a week. She is not vomited but feels as though she needs to. She is concerned about a bowel obstruction. She does admit during this last week she had one small watery stool that was very minimal in amount. She denies any other complaints and has no other concerns. Associated Symptoms: Reports nausea; Denies chills, coffee ground emesis, constipation, GI cramping, diarrhea, dysuria, fever(s), heartburn, hematochezia, hematuria, hematemesis, melena, syncope and vomiting Review of Systems Const: Denies: fever(s), chills, body aches, fatigue, malaise, night sweats or diaphoresis Eyes: Denies: change in vision, blurry vision or blind spots ENMT: Denies: throat pain, odynophagia, hoarseness, ear or mastoid pain, ear discharge, change in hearing or nasal discharge Card: Denies: chest pain, palpitations, irregular heart rhythm, lightheadedness, syncope, pre-syncope, dyspnea on exertion or orthopnea Resp: Denies: dyspnea, productive cough, non-productive cough, wheezing, hemoptysis or chest congestion GI: Reports: abdominal pain and nausea; Denies: vomiting, hematemesis, coffee ground emesis, heartburn, diarrhea, constipation, GI cramping, hematochezia or melena : Denies: flank pain, dysuria, urinary frequency, urinary urgency, oliguria, urinary incontinence or hematuria Musc: Denies: neck pain, back pain, extremity pain, extremity swelling, joint pain, joint swelling, joint redness, joint warmth or joint stiffness Skin/Breast: Denies: rash, pruritus, erythema, skin tenderness or jaundice Neuro: Denies: headache(s), numbness in extremities, weakness in extremities, sensory changes, lack of coordination, difficulty walking, dizziness, vertigo, confusion or Slurred speech present Endo: Denies: polyuria, polydipsia, tired all the time, cold intolerance, excessive sweating, flushing, hot flashes or heat intolerance Eduardo/Lymph: Denies: easy bruising, easy bleeding, petechiae, purpura or enlarged lymph nodes All/Imm: Denies: urticaria, throat swelling, tongue swelling, facial swelling or acute wheezing PFSH ED PFSH: Medical History Acute bilateral low back pain Acute neck pain Acute radicular low back pain Arm numbness Cervical disc disorder, unspecified, unspecified cervical region Chronic pain of left upper extremity Disc disorder Encounter for long-term opiate analgesic use Fibromyalgia muscle pain Morbid (severe) obesity due to excess calories Neoplasm related pain (acute) (chronic) Opioid contract exists Type 2 diabetes mellitus without complications Surgical History H/O elbow surgery H/O mastectomy 2011 H/O tubal ligation History of appendectomy History of cholecystectomy [place] node 2012 with recurrence 2015 Family History Father Hypertension Mother CAD (coronary artery disease) Social History Smoking and tobacco status: never smoked Alcohol intake: never Physical Exam Const: COMMON NORMALS: no acute distress, patient oriented x3, no limitations, healthy appearing and well nourished EXAM LIMITATIONS: no altered mental status GENERAL APPEARANCE: cooperative, well kempt and well developed HENMT: COMMON NORMALS: normocephalic, atraumatic, hearing grossly normal bilaterally, external ears normal, EAC's normal, Normal external nose present and moist oral mucous membranes HEAD & SCALP: normal to inspection, normocephalic and atraumatic FACE & SINUS: normal facial exam and face symmetric NOSE: Normal external nose present and Normal nares present EXTERNAL EAR: Yes external ears normal EXTERNAL AUDITORY CANAL: EAC's normal MOUTH: Normal oral and palatal mucosa present, lip normal and tongue normal Eye: COMMON NORMALS: Equal, round and reactive pupils present, EOMs intact bilaterally, conjunctivae normal and no scleral icterus GENERAL EYE: appearance normal, both eyes and all related structures ALIGNMENT: Yes alignment normal PERIORBITAL: periorbital findings normal EYELID: eyelids normal CONJUNCTIVA: Yes conjunctivae normal SCLERA: sclerae normal PUPIL: Yes Equal, round and reactive pupils present Neck/C-Spine: COMMON NORMALS: full ROM, no lymphadenopathy, supple, no meningeal signs and no JVD GENERAL: Yes normal visual inspection and Yes trachea midline CERVICAL SPINE: Yes cervical ROM normal Chest: COMMONS NORMALS: normal inspection of the chest and normal palpation of entire chest wall Resp: COMMON NORMALS: normal respiratory effort, No retractions, No use of accessory muscles and clear to auscultation bilaterally EFFORT & INSPECTION: Yes able to speak in complete sentences AUSCULTATION: clear to auscultation bilaterally, no crackles, no rales, no rhonchi and no wheezes Cardio: COMMON NORMALS: no JVD, regular rate, regular rhythm, S1 normal heart sound present, S2 normal heart sound present, No gallops present (Cardio), No clicks present (Cardio), No murmurs present (Cardio) and No rub (Cardio) RATE: regular rate RHYTHM: regular rhythm HEART SOUNDS: S1 normal heart sound present, S2 normal heart sound present, no click, no gallops, no murmurs and no rubs GI: COMMON NORMALS: Soft to palpation, No hepatosplenomegaly present and no masses PALPATION: Yes Soft to palpation, No Guarding due to palpation present (GI), No Rigid due to palpation, Yes No hepatosplenomegaly present, No Hernia present, No Palpable mass present and No Pulsatile mass present : COMMON NORMALS: Yes no CVA tenderness BLADDER/KIDNEY EXAM: Yes no CVA tenderness EXTERNAL FEMALE EXAM: No Hernia present Back/Pelvis: COMMON NORMALS: no CVA tenderness, thoracic and lumbar spine normal to inspection, no thoracic nor lumbar tenderness and thoraco-lumbar ROM normal Extremity: COMMON NORMALS: normal to inspection, full ROM, capillary refill normal, no joint enlargement, no clubbing, cyanosis or edema and no calf tenderness Neuro: COMMON NORMALS: patient oriented x3, CN's II-XII intact bilaterally, moves all extremities, no focal motor deficits and no sensory deficits noted MENINGEAL SIGNS: Yes no meningeal signs SPEECH: speech normal Psych: COMMON NORMALS: mental status grossly normal, Normal thought process present, cooperative, normal affect, speech normal and activity/motor behavior normal APPEARANCE: Yes well kempt SPEECH: Yes normal speech THOUGHT PROCESS: Normal thought process present Skin: COMMON NORMALS: no rashes or lesions noted, turgor normal, no jaundice, no petechiae and no mottling GENERAL SKIN EXAM: no rashes or lesions noted and turgor normal Course Vital Signs: Vital signs: Vital Signs Temperature 98.2 F 12/01/19 12:42 Pulse Rate 79 12/01/19 16:48 Respiratory Rate 18 12/01/19 16:48 Blood Pressure 174/102 12/01/19 16:48 Pulse Oximetry 96 12/01/19 16:48 MDM - Abdominal Pain MDM Narrative: Medical decision making narrative: Neeru is a very nice 49-year-old female who comes in complaining of nausea and abdominal pain. CT scan does not reveal any sign of obstruction. There is a possibility of colitis. We will treat this empirically with antibiotics. Patient has not vomited and her white count is normal. There is no sign of mesenteric ischemia based upon exam. I will go ahead and discharge the patient home as she is tolerating oral medications. Further care can be dictated by her doctor or by Dr. Ortiz who I have referred her to as an outpatient. Lab Data: Attestation: I reviewed the patient's lab results. Labs: Lab Results 12/01/19 12/01/19 12/01/19 Range/Units 13:36 13:36 13:36 WBC 5.9 (4.0-10.0) 10^3/ uL RBC 4.15 (4.1-5.3) 10^6/u L Hgb 12.7 (11.5-15.3) g/dL Hct 40.0 (37.0-47.0) % MCV 96.4 (81-99) fL MCH 30.6 (28.0-34.0) pg MCHC 31.8 (30.0-36.0) g/dL RDW 13.4 (12.1-15.1) % Plt Count 197 (130-400) 10^3/c mm MPV 9.9 (7.4-10.4) fL Neut % (Auto) 71.6 % Lymph % (Auto) 17.8 % Dolores % (Auto) 6.2 % Eos % (Auto) 3.7 % Baso % (Auto) 0.2 % Neut # (Auto) 4.3 (1.8-7.7) 10^3/u L Lymph # (Auto) 1.1 (0.8-4.8) 10^3/u L Dolores # (Auto) 0.4 (0.2-0.9) 10^3/u L Eos # (Auto) 0.2 (0.0-0.8) 10^3/u L Baso # (Auto) 0.0 (0.0-0.1) 10^3/u L Nucleated RBC % (a uto) 0 % Nucleated RBCs # 0.0 /100WBC Sodium 138 (136-145) mmol/L Potassium 4.3 (3.5-5.1) mmol/L Chloride 100 (98-107) mmol/L Carbon Dioxide 26 (22-29) mmol/L Anion Gap 16.3 (5-19) BUN 7 (6-20) mg/dL Creatinine 0.6 (0.5-0.9) mg/dL GFR Calculation 105.4 (90-130) mL/min Glucose 158 H (65-115) mg/dL Calculated Osmolal ity 285 (285-295) mOsm/k g Calcium 9.9 (8.5-10.5) mg/dL Total Bilirubin 0.5 (0.15-1.2) mg/dL AST 20 (0-32) U/L ALT 30 (0-33) U/L Alkaline Phosphata se 72 (35-105) IU/L Total Protein 7.3 (6.6-8.7) g/dL Albumin 4.4 (3.5-5.2) g/dL Globulin 2.9 (1.3-4.6) g/dL Lipase 11 L (13-60) U/L Urine Color Yellow (Yellow) Urine Appearance Sl hazy (CLEAR) Urine pH 5 (5-7) Ur Specific Gravit y 1.005 (1.005-1.030) Urine Protein Neg (Negative) Urine Glucose (UA) Norm (Normal) Urine Ketones Negative (Negative) Urine Blood Neg (Negative) Urine Nitrate Negative (Negative) Urine Bilirubin Neg (NEGATIVE) Urine Urobilinogen Norm (Negative) mg/dL Ur Leukocyte Keiko ase Negative (Negative) Urine RBC None (0-2) /hpf Urine WBC Rare (0-5) /hpf Ur Squamous Epith Cells 10-15 H (0-5) Urine Bacteria 2+ H (NONE) Discharge Plan Discharge Patient Disposition: Home, Self-Care Clinical Impression: Colitis Condition: Stable Prescriptions: New Flagyl 500 mg tablet 500 mg PO TID 10 Days Qty: 30 RF: 0 Cipro 500 mg tablet 500 mg PO BID Qty: 20 RF: 0 promethazine 25 mg tablet 25 mg PO Q4H PRN (Reason: nausea and vomiting) Qty: 20 RF: 0 No Action cholecalciferol (vitamin D3) 50,000 unit capsule 50,000 unit PO .WEEKLY RF: 0 albuterol sulfate [ProAir HFA] 90 mcg/actuation HFA aerosol inhaler 1 inh INHALATION DAILY PRN (Reason: Shortness Of Breath) RF: 0 lorazepam [Ativan] 1 mg tablet 1 mg PO TID PRN (Reason: Anxiety) RF: 0 promethazine 25 mg tablet 25 mg PO DAILY PRN (Reason: Nausea) RF: 0 furosemide [Lasix] 20 mg tablet 20 mg PO PRN PRN (Reason: UNKNOWN) RF: 0 potassium chloride 10 mEq capsule, extended release 10 meq PO DAILY PRN (Reason: UNKNOWN) RF: 0 albuterol 90 mcg/actuation aerosol 90 mcg INHALATION DAILY RF: 0 magnesium oxide 400 mg magnesium capsule 800 mg PO BID RF: 0 diltiazem HCl [Cartia XT] 120 mg capsule,extended release 24hr 360 mg PO DAILY RF: 0 Humalog U-100 Insulin 100 unit/mL cartridge 1 sliding scale dose SUBCUT .COMPLEX RF: 0 pseudoephedrine HCl 30 mg tablet 30 mg PO DAILY PRN (Reason: UNKNOWN) RF: 0 metformin 500 mg tablet 500 mg PO BID RF: 0 cholecalciferol (vitamin D3) 2,000 unit tablet 2,000 unit PO DAILY RF: 0 enalapril maleate 10 mg tablet 10 mg PO DAILY RF: 0 rosuvastatin [Crestor] 5 mg tablet 10 mg PO .WEEKLY RF: 0 hydrocodone-acetaminophen 10-325 mg tablet 2 tab PO QID PRN (Reason: pain) 30 Days Qty: 240 RF: 0 hydrocodone-acetaminophen 10-325 mg tablet 2 tab PO QID PRN (Reason: pain) 30 Days Qty: 240 RF: 0 tizanidine 4 mg tablet 4 mg PO TID PRN (Reason: muscle spasticity) Qty: 90 RF: 1 Vitamin C 500 mg Tablet 250 mg PO DAILY RF: 0 aspirin 81 mg tablet,chewable 81 mg PO DAILY Qty: 30 RF: 0 Discharge Orders: Discharge Order (Routine); Ordered 12/01/19 Ordered By: Nathalia Roland Referrals: Dmitriy Ortiz MD [Physician] - 4-7 days Discharge Diet: Advance as tolerated and Clear Liquid Discharge Activity: Increase activity as tolerated Patient Instructions: Infectious Colitis (ED) Activity Restrictions/Additional Instructions: Please return to the ER immediately for any of the signs or symptoms listed on your discharge instruction sheets, worsening/changing of your symptoms, you are not getting better as quickly as expected, or for ANY other cause or concerns. Do not take your tizanidine while you are taking ciprofloxacin. There is an interaction and you should not take the tizanidine while on Cipro. Return to the ER for vomiting, fever, worsening pain, or for any other cause for concern. Discharge Date/Time: 12/01/19 16:53 Coding Level of Care Code ED Finishing Range Operator for [facility] Fwd Exam Comprehensive
[2019-12-01 14:41] LABS: WBC Urine RARE /hpf (0-5)
[2019-12-01 14:42] LABS: Add Urine Culture? No; Bacteria Urine 2+
[2019-12-01] MEDS: metroNIDAZOLE 500 MG Tablet PO (15:38)
[2019-12-01] MEDS: ciprofloxacin 500 mg Tablet PO (15:38)
[2019-12-01 16:48] VITALS: BP 174/102; PULSE 79; RESP 18; O2SAT 96
--- NOTE | 2019-12-04 13:06 | DCPLANNER ---
greenhouse manager had message to schedule a follow up appointment for patient with Dr. Ortiz. greenhouse manager called [facility], spoke with Claire, gave clinic patients information. A follow up appointment was scheduled for patient for Tuesday, December 10, 2019 at 10:[address] Ortiz. Clinic will call patient with appointment information.
--- NOTE | 2019-12-19 15:02 | DCPLANNER ---
Appointment scheduled for 12.10.19 was cancelled by patient.
== END 2019-12-01 16:53 | disposition home or self-care (01) ==
PROVIDERS: Emergency Provider Emergency Medicine
DX: K52.9 Noninfective gastroenteritis and colitis, unspecified (principal); Z79.82 Long term (current) use of aspirin; Z79.4 Long term (current) use of insulin; E11.9 Type 2 diabetes mellitus without complications
CPT/HCPCS: 12345; 74177; 80053; 81001; 83690; 85025; 96361; 96374; 96375; 99282; 99283; J2270; J2765; J7030; Q9967

== ENCOUNTER 2019-12-20 02:55 | Emergency (ER) | payer MEDICARE, SELFPAY ==
[2019-12-20 03:05] VITALS: BP 208/91; PULSE 103; RESP 24; O2SAT 99; BMI 60.5
[2019-12-20] MEDS: aspirin 325 mg Tablet PO (03:20)
[2019-12-20 03:27] LABS: Basophils % 0.3 %; Eosinophils # 0.2 10^3/uL (0.0-0.8); Hematocrit 42.9 % (37.0-47.0); Hemoglobin 13.6 g/dL (11.5-15.3); Lymphocytes % 33.2 %; Mean Corpuscular HGB Conc 31.7 g/dL (30.0-36.0); Mean Corpuscular Hemoglobin 30.2 pg (28.0-34.0); Mean Corpuscular Volume 95.1 fL (81-99); Mean Platelet Volume 9.9 fL (7.4-10.4); Monocytes # 0.4 10^3/uL (0.2-0.9); Monocytes % 6.5 %; Neutrophils # 3.4 10^3/uL (1.8-7.7); Neutrophils % 56.7 %; Nucleated Red Blood Cells % 0 %; Platelet Count 244 10^3/cmm (130-400); Red Blood Count 4.51 10^6/uL (4.1-5.3); Red Cell Distribution Width 13.1 % (12.1-15.1)
[2019-12-20 03:41] LABS: Troponin(5th) Baseline 6 ng/L (0-10)
--- NOTE | 2019-12-20 03:41 | ED_ITS ---
HPI - Chest Pain General: Chief Complaint: Chest Pain Stated Complaint: cp Time Seen by Provider: 12/20/19 02:57 Source: patient Mode of arrival: ambulatory Limitations: no limitations History of Present Illness: HPI narrative: Neeru is a 49-year-old female who comes in complaining of palpitations. States the palpitations is making her chest feel uncomfortable. She has some shortness of breath with this. She denies any cough, fever, chills describes the discomfort as a fluttering. The patient is currently only undergoing work-up by a code number stamper in [place] with a event monitor. Patient denies any syncope or near syncopal type symptoms. She denies any other focal complaints. Associated symptoms: Reports dyspnea and palpitations; Deny abdominal pain, diaphoresis, fever(s), nausea, syncope or vomiting Review of Systems Const: Denies: fever(s), chills, body aches, fatigue, malaise or diaphoresis Eyes: Denies: change in vision, blurry vision, blind spots or photophobia ENMT: Denies: throat pain, odynophagia, hoarseness, swelling of lips/tongue, ear or mastoid pain, ear discharge, change in hearing or nasal discharge Card: Reports: chest pain and palpitations; Denies: irregular heart rhythm, edema, lightheadedness, syncope, pre-syncope, dyspnea on exertion or orthopnea Resp: Reports: dyspnea; Denies: productive cough, non-productive cough, wheezing, hemoptysis or chest congestion GI: Denies: abdominal pain, nausea, vomiting, hematemesis, coffee ground emesis, heartburn, diarrhea, constipation, GI cramping, hematochezia or melena : Denies: flank pain, dysuria, urinary frequency, urinary urgency or hematuria Musc: Denies: neck pain, back pain, extremity pain, extremity swelling, joint pain, joint swelling, joint redness, joint warmth or joint stiffness Skin/Breast: Denies: rash, pruritus, erythema, skin tenderness or jaundice Neuro: Denies: headache(s), numbness in extremities, weakness in extremities, sensory changes, lack of coordination, difficulty walking, dizziness, vertigo, confusion or Slurred speech present Eduardo/Lymph: Denies: easy bruising, easy bleeding, petechiae, purpura or enlarged lymph nodes All/Imm: Denies: urticaria, throat swelling, tongue swelling, facial swelling or acute wheezing PFSH ED PFSH: Medical History (Updated 12/20/19 @ 06:05 by Nathalia Roland) Acute bilateral low back pain Acute neck pain Acute radicular low back pain Arm numbness Cervical disc disorder, unspecified, unspecified cervical region Chronic pain of left upper extremity Disc disorder Encounter for long-term opiate analgesic use Fibromyalgia muscle pain Morbid (severe) obesity due to excess calories Neoplasm related pain (acute) (chronic) Opioid contract exists Type 2 diabetes mellitus without complications Surgical History H/O elbow surgery H/O mastectomy 2011 H/O tubal ligation History of appendectomy History of cholecystectomy [place] node 2011 with recurrence 2015 Family History Father Hypertension Mother CAD (coronary artery disease) Social History Smoking and tobacco status: never smoked Alcohol intake: never Physical Exam Const: COMMON NORMALS: no acute distress, patient oriented x3, no limitations, healthy appearing and well nourished GENERAL APPEARANCE: cooperative, well kempt and well developed HENMT: COMMON NORMALS: normocephalic, atraumatic, external ears normal, EAC's normal and Normal external nose present HEAD & SCALP: normal to inspection, normocephalic and atraumatic FACE & SINUS: normal facial exam and face symmetric NOSE: Normal external nose present and Normal nares present EXTERNAL EAR: Yes external ears normal EXTERNAL AUDITORY CANAL: EAC's normal MOUTH: Normal oral and palatal mucosa present, lip normal and tongue normal Eye: COMMON NORMALS: Equal, round and reactive pupils present and conjunctivae normal GENERAL EYE: appearance normal, both eyes and all related structures ALIGNMENT: Yes alignment normal PERIORBITAL: periorbital findings normal EYELID: eyelids normal CONJUNCTIVA: Yes conjunctivae normal SCLERA: sclerae normal PUPIL: Yes Equal, round and reactive pupils present Neck/C-Spine: COMMON NORMALS: full ROM, no lymphadenopathy, supple, no meningeal signs and no JVD GENERAL: Yes normal visual inspection and Yes trachea midline Chest: COMMONS NORMALS: normal inspection of the chest and normal palpation of entire chest wall Resp: COMMON NORMALS: normal respiratory effort, No retractions and No use of accessory muscles EFFORT & INSPECTION: Yes able to speak in complete sentences and Yes symmetric chest movement AUSCULTATION: no crackles, no rales, no rhonchi and no wheezes Cardio: COMMON NORMALS: no JVD, regular rate, regular rhythm, S1 normal heart sound present and S2 normal heart sound present RATE: regular rate RHYTHM: regular rhythm HEART SOUNDS: S1 normal heart sound present, S2 normal heart sound present, no click, no gallops, no murmurs, no rubs and abnormal split S2 GI: COMMON NORMALS: Soft to palpation and No hepatosplenomegaly present PALPATION: Yes Soft to palpation, No Tenderness to palpation present (GI), No Guarding due to palpation present (GI), No Rigid due to palpation, Yes No hepatosplenomegaly present, No Hernia present, No Palpable mass present and No Pulsatile mass present : COMMON NORMALS: Yes no CVA tenderness BLADDER/KIDNEY EXAM: Yes no CVA tenderness EXTERNAL FEMALE EXAM: No Hernia present Back/Pelvis: COMMON NORMALS: no CVA tenderness, thoracic and lumbar spine normal to inspection, no thoracic nor lumbar tenderness and thoraco-lumbar ROM normal Extremity: COMMON NORMALS: normal to inspection, full ROM, capillary refill normal, no joint enlargement, no clubbing, cyanosis or edema and no calf tenderness Neuro: COMMON NORMALS: patient oriented x3, CN's II-XII intact bilaterally, moves all extremities, no focal motor deficits and no sensory deficits noted MENINGEAL SIGNS: Yes no meningeal signs SPEECH: speech normal Psych: COMMON NORMALS: mental status grossly normal, Normal thought process present, cooperative, normal affect, speech normal and activity/motor behavior normal APPEARANCE: Yes well kempt SPEECH: Yes normal speech THOUGHT PROCESS: Normal thought process present Skin: COMMON NORMALS: no rashes or lesions noted, turgor normal, no jaundice, no petechiae and no mottling GENERAL SKIN EXAM: no rashes or lesions noted and turgor normal Course Vital Signs: Vital signs: Vital Signs Pulse Rate 103 H 12/20/19 03:05 Respiratory Rate 24 H 12/20/19 03:05 Blood Pressure 208/91 12/20/19 03:05 Pulse Oximetry 99 12/20/19 03:05 MDM - Chest Pain MDM Narrative: Medical decision making narrative: Mya Murphy is a nice 49-year-old female comes in with stable vital signs except for mild tachycardia. She complains of palpitations and chest discomfort secondary to this. She is currently under a work-up by code number stamper in [place]. Patient had a negative stress test 9 months ago and is currently undergoing a Holter monitor investigation. Patient story is atypical I have her as a heart score of 3. She is willing to undergo evaluation here in the ER but wants to hold off any nitroglycerin, aspirin any other medications for her heart rate or blood pressure. Discharge -patient still adamant that she wants to go home. Second EKG is unremarkable and her second troponin is still 6. She is a heart score of 3 so I believe she is safe for discharge. She was still encouraged to stay if she felt uncomfortable doing so but she declines. She wants to follow-up with her code number stamper in [place]. Patient was warned but she was also welcome to return. Lab Data: Labs: Lab Results 12/20/19 12/20/19 12/20/19 Range/Units 03:15 03:15 03:15 WBC 6.0 (4.0-10.0) 10^3/ uL RBC 4.51 (4.1-5.3) 10^6/u L Hgb 13.6 (11.5-15.3) g/dL Hct 42.9 (37.0-47.0) % MCV 95.1 (81-99) fL MCH 30.2 (28.0-34.0) pg MCHC 31.7 (30.0-36.0) g/dL RDW 13.1 (12.1-15.1) % Plt Count 244 (130-400) 10^3/c mm MPV 9.9 (7.4-10.4) fL Neut % (Auto) 56.7 % Lymph % (Auto) 33.2 % [place] % (Auto) 6.5 % Eos % (Auto) 3.0 % Baso % (Auto) 0.3 % Neut # (Auto) 3.4 (1.8-7.7) 10^3/u L Lymph # (Auto) 2.0 (0.8-4.8) 10^3/u L [place] # (Auto) 0.4 (0.2-0.9) 10^3/u L Eos # (Auto) 0.2 (0.0-0.8) 10^3/u L Baso # (Auto) 0.0 (0.0-0.1) 10^3/u L Nucleated RBC % (a uto) 0 % Nucleated RBCs # 0.0 /100WBC PT 12.70 (10.5-13.3) SECO NDS INR 0.92 (0.8-1.2) D-Dimer <= 0.27 (0-0.59) ug/mIFE U Sodium 136 (136-145) mmol/L Potassium 3.9 (3.5-5.1) mmol/L Chloride 97 L (98-107) mmol/L Carbon Dioxide 26 (22-29) mmol/L Anion Gap 16.9 (5-19) BUN 20 (6-20) mg/dL Creatinine 0.9 (0.5-0.9) mg/dL GFR Calculation 66.0 L (90-130) mL/min Glucose 177 H (65-115) mg/dL Calculated Osmolal ity 283 L (285-295) mOsm/k g Calcium 9.9 (8.5-10.5) mg/dL Magnesium 1.9 (1.7-2.3) mg/dL Total Bilirubin 0.5 (0.15-1.2) mg/dL AST 13 (0-32) U/L ALT 14 (0-33) U/L Alkaline Phosphata se 69 (35-105) IU/L Troponin T Baselin e (0-10) ng/L Troponin T 120 Min [place] (0-10) ng/L Delta Troponin T (0-10) ABS# Total Protein 7.2 (6.6-8.7) g/dL Albumin 5.1 (3.5-5.2) g/dL Globulin 2.1 (1.3-4.6) g/dL Lipase 28 (13-60) U/L Urine Color (Yellow) Urine Appearance (CLEAR) Urine pH (5-7) Ur Specific Gravit y (1.005-1.030) Urine Protein (Negative) Urine Glucose (UA) (Normal) Urine Ketones (Negative) Urine Blood (Negative) Urine Nitrate (Negative) Urine Bilirubin (NEGATIVE) Urine Urobilinogen (Negative) mg/dL Ur Leukocyte Keiko ase (Negative) Urine RBC (0-2) /hpf Urine WBC (0-5) /hpf Ur Squamous Epith Cells (0-5) Urine Bacteria (NONE) 12/20/19 12/20/19 12/20/19 Range/Units 03:15 03:29 05:22 WBC (4.0-10.0) 10^3/ uL RBC (4.1-5.3) 10^6/u L Hgb (11.5-15.3) g/dL Hct (37.0-47.0) % MCV (81-99) fL MCH (28.0-34.0) pg MCHC (30.0-36.0) g/dL RDW (12.1-15.1) % Plt Count (130-400) 10^3/c mm MPV (7.4-10.4) fL Neut % (Auto) % Lymph % (Auto) % [place] % (Auto) % Eos % (Auto) % Baso % (Auto) % Neut # (Auto) (1.8-7.7) 10^3/u L Lymph # (Auto) (0.8-4.8) 10^3/u L [place] # (Auto) (0.2-0.9) 10^3/u L Eos # (Auto) (0.0-0.8) 10^3/u L Baso # (Auto) (0.0-0.1) 10^3/u L Nucleated RBC % (a uto) % Nucleated RBCs # /100WBC PT (10.5-13.3) SECO NDS INR (0.8-1.2) D-Dimer (0-0.59) ug/mIFE U Sodium (136-145) mmol/L Potassium (3.5-5.1) mmol/L Chloride (98-107) mmol/L Carbon Dioxide (22-29) mmol/L Anion Gap (5-19) BUN (6-20) mg/dL Creatinine (0.5-0.9) mg/dL GFR Calculation (90-130) mL/min Glucose (65-115) mg/dL Calculated Osmolal ity (285-295) mOsm/k g Calcium (8.5-10.5) mg/dL Magnesium (1.7-2.3) mg/dL Total Bilirubin (0.15-1.2) mg/dL AST (0-32) U/L ALT (0-33) U/L Alkaline Phosphata se (35-105) IU/L Troponin T Baselin e 6 (0-10) ng/L Troponin T 120 Min [place] 6.00 (0-10) ng/L Delta Troponin T 0 (0-10) ABS# Total Protein (6.6-8.7) g/dL Albumin (3.5-5.2) g/dL Globulin (1.3-4.6) g/dL Lipase (13-60) U/L Urine Color Yellow (Yellow) Urine Appearance Clear (CLEAR) Urine pH 5 (5-7) Ur Specific Gravit y 1.015 (1.005-1.030) Urine Protein Trace (Negative) Urine Glucose (UA) Norm (Normal) Urine Ketones Negative (Negative) Urine Blood Neg (Negative) Urine Nitrate Negative (Negative) Urine Bilirubin Neg (NEGATIVE) Urine Urobilinogen Norm (Negative) mg/dL Ur Leukocyte Ke[place] ase Negative (Negative) Urine RBC Rare (0-2) /hpf Urine WBC Rare (0-5) /hpf Ur Squamous Epith Cells 0-4 H (0-5) Urine Bacteria Trace (NONE) EKG Data^: EKG 1: Attestation: I personally reviewed and interpreted this EKG as follows: EKG interpretation date: 12/20/19 EKG interpretation time: 03:20 Interpretation: Normal sinus rhythm at 84 beats a minute, PACs and PVCs present, no acute ST or T wave changes. EKG 2: Attestation: I personally reviewed and interpreted this EKG as follows: EKG interpretation date: 12/20/19 EKG interpretation time: 05:38 Interpretation: Normal sinus rhythm at 69 beats a minute, no blocks, normal intervals, no acute ST or T wave changes. Discharge Plan Discharge Patient Disposition: Home, Self-Care Clinical Impression: Palpitations Condition: Stable Prescriptions: No Action cholecalciferol (vitamin D3) 50,000 unit capsule 50,000 unit PO .WEEKLY RF: 0 albuterol sulfate [ProAir HFA] 90 mcg/actuation HFA aerosol inhaler 1 inh INHALATION DAILY PRN (Reason: Shortness Of Breath) RF: 0 lorazepam [Ativan] 1 mg tablet 1 mg PO TID PRN (Reason: Anxiety) RF: 0 promethazine 25 mg tablet 25 mg PO DAILY PRN (Reason: Nausea) RF: 0 furosemide [Lasix] 20 mg tablet 20 mg PO PRN PRN (Reason: UNKNOWN) RF: 0 potassium chloride 10 mEq capsule, extended release 10 meq PO DAILY PRN (Reason: UNKNOWN) RF: 0 albuterol 90 mcg/actuation aerosol 90 mcg INHALATION DAILY RF: 0 magnesium oxide 400 mg magnesium capsule 800 mg PO BID RF: 0 diltiazem HCl [Cartia XT] 120 mg capsule,extended release 24hr 360 mg PO DAILY RF: 0 Humalog U-100 Insulin 100 unit/mL cartridge 1 sliding scale dose SUBCUT .COMPLEX RF: 0 pseudoephedrine HCl 30 mg tablet 30 mg PO DAILY PRN (Reason: UNKNOWN) RF: 0 metformin 500 mg tablet 500 mg PO BID RF: 0 cholecalciferol (vitamin D3) 2,000 unit tablet 2,000 unit PO DAILY RF: 0 enalapril maleate 10 mg tablet 10 mg PO DAILY RF: 0 rosuvastatin [Crestor] 5 mg tablet 10 mg PO .WEEKLY RF: 0 hydrocodone-acetaminophen 10-325 mg tablet 2 tab PO QID PRN (Reason: pain) 30 Days Qty: 240 RF: 0 hydrocodone-acetaminophen 10-325 mg tablet 2 tab PO QID PRN (Reason: pain) 30 Days Qty: 240 RF: 0 tizanidine 4 mg tablet 4 mg PO TID PRN (Reason: muscle spasticity) Qty: 90 RF: 1 Vitamin C 500 mg Tablet 250 mg PO DAILY RF: 0 aspirin 81 mg tablet,chewable 81 mg PO DAILY Qty: 30 RF: 0 Cipro 500 mg tablet 500 mg PO BID Qty: 20 RF: 0 promethazine 25 mg tablet 25 mg PO Q4H PRN (Reason: nausea and vomiting) Qty: 20 RF: 0 Discharge Orders: Discharge Order (Routine); Ordered 12/20/19 Ordered By: Nathalia Roland Referrals: Rosalinda Paulino MD [Physician] - 1-3 days Discharge Diet: Advance as tolerated Discharge Activity: Increase activity as tolerated Patient Instructions: Chest Pain (ED), Palpitations (ED) Activity Restrictions/Additional Instructions: Please return to the ER immediately for any of the signs or symptoms listed on your discharge instruction sheets, worsening/changing of your symptoms, you are not getting better as quickly as expected, or for ANY other cause or concerns. I have recommended and offered for you to stay for a stress test but you have declined. If your symptoms change or worsen in any way, you feel like you might pass out, your chest pain returns or you simply change your mind you are more than welcome to return to the ER for recheck. Be certain to follow-up with your code number stamper in [place] as soon as possible for recheck. Coding Level of Care Code ED Rug Designer for [facility] Fwd Exam Comprehensive
[2019-12-20 03:47] LABS: Bilirubin Urine Neg (NEGATIVE); Blood Urine Neg (Negative); Glucose Urine UA Norm (Normal); Ketones Urine Negative (Negative); Leukocyte Esterase Urine Negative (Negative); Nitrate Urine Negative (Negative); Protein Urine Trace (Negative); RBC Urine RARE /hpf (0-2); Specific Gravity, Urine 1.015 (1.005-1.030); Urine Appearance Clear (CLEAR); Urine Color Yellow (Yellow); Urobilinogen Urine Norm (Negative); WBC Urine RARE /hpf (0-5); pH Urine 5 (5-7)
--- NOTE | 2019-12-20 03:47 | PC.NURSE ---
Pt meds confirmed. Pt refusing NTG due to causing unbearable headache. After review of pts meds, vo obtained for 0.1 of clonadine or cardiac monitoring. Pt agreeable for monitoring since she states pain has subsided and HR has gone down. informed of pt's decision
[2019-12-20 03:48] LABS: Bacteria Urine TRACE; Squamous Epithelial Cell Urine 0-4 (0-5)
[2019-12-20 03:52] LABS: INR 0.92 (0.8-1.2)
[2019-12-20 03:55] LABS: D Dimer <= 0.27 ug/mIFEU (0-0.59)
[2019-12-20 04:06] LABS: Alanine Aminotransferase 14 U/L (0-33); Albumin Level 5.1 g/dL (3.5-5.2); Alkaline Phosphatase 69 IU/L (35-105); Anion Gap 16.9 (5-19); Aspartate Amino Transferase 13 U/L (0-32); Blood Urea Nitrogen 20 mg/dL (6-20); Calcium 9.9 mg/dL (8.5-10.5); Carbon Dioxide 26 mmol/L (22-29); Chloride 97 mmol/L (98-107); Globulin 2.1 g/dL (1.3-4.6); Glucose 177 mg/dL (65-115); Lipase 28 U/L (13-60); Magnesium 1.9 mg/dL (1.7-2.3); Osmolality Calculated 283 mOsm/kg (285-295); Potassium 3.9 mmol/L (3.5-5.1); Sodium 136 mmol/L (136-145); Total Bilirubin 0.5 mg/dL (0.15-1.2); Total Protein 7.2 g/dL (6.6-8.7)
--- NOTE | 2019-12-20 04:52 | PC.NURSE ---
Addendum entered by Nicky Logan 12/20/19 05:12: Dr notified Original Note: Pt states that while she walked to the bathroom, she felt her heart go boy patter and B/P elevated. Pt re-connected to cardiac monitoring, vitals within range. Pt states she will allow additional monitoring
--- NOTE | 2019-12-20 05:01 | ECG_ITS ---
Measurements Intervals [place] Rate: 69 P: 58 FL: 200 QRS: 6 QRSD: 83 T: 2 QT: 407 QTc: 438 SINUS RHYTHM LOW QRS VOLTAGE IN PRECORDIAL LEADS [QRS DEFLECTION < 1.0 mV IN CHEST LEADS] Compared to ECG 09/25/2019 22:47:39 Low QRS voltage now present Electronically Signed On 12-20-2019 21:09:20 CDT by Tomi Rivera M.D. [id number]
[2019-12-20 05:51] LABS: Troponin 5 2HR Delta 0 ABS# (0-10)
--- NOTE | 2019-12-20 06:26 | PC.NURSE ---
Pt refused to stay inpatient for cardiac stress test. Pt states she can not sleep with another person in the room. I would stay if there were private rooms Pt advised she would be leaving AMA due to not following all Dr recomendations. Pt states she will call her guest laundry attendant and schedule stress test as outpatient. Pt refused to sign discharge paperwork or AMA paperwork. notified
[2019-12-20 06:33] VITALS: BP 156/98; PULSE 70; RESP 20; O2SAT 96
--- NOTE | 2019-12-20 09:01 | ECG_ITS ---
Measurements Intervals [place] Rate: 84 P: 66 HI: 188 QRS: 7 QRSD: 81 T: 18 QT: 378 QTc: 448 SINUS RHYTHM WITH OCCASIONAL VENTRICULAR PREMATURE COMPLEXES WITH OCCASIONAL SUPRAVENTRICULAR PREMATURE COMPLEXES Compared to ECG 09/25/2019 22:47:39 Ventricular premature complex(es) now present Electronically Signed On 12-20-2019 21:06:52 CDT by Tomi Rivera M.D. [id number]
== END 2019-12-20 06:15 | disposition home or self-care (01) ==
PROVIDERS: Emergency Provider Emergency Medicine
DX: R00.2 Palpitations (principal); Z79.4 Long term (current) use of insulin; Z79.82 Long term (current) use of aspirin; E11.9 Type 2 diabetes mellitus without complications
CPT/HCPCS: 12345; 36415; 80053; 81001; 83690; 83735; 84484; 85025; 85378; 85610; 93005; 99283; 99284

== ENCOUNTER → 2020-01-25 10:23 | Outpatient (BNVA) | payer MEDICARE, SELFPAY | PROVIDERS: Visit Provider Anesthesiology | DX: G89.29 Other chronic pain (principal); M54.41 Lumbago with sciatica, right side; M54.42 Lumbago with sciatica, left side; M51.36 Other intervertebral disc degeneration, lumbar region; M50.90 Cervical disc disorder, unspecified, unspecified cervical region; M79.602 Pain in left arm; R20.0 Anesthesia of skin; Z79.891 Long term (current) use of opiate analgesic | CPT/HCPCS: 99214 ==

== ENCOUNTER → 2020-03-12 12:59 | Outpatient (BNVA) | payer MEDICARE, SELFPAY | PROVIDERS: Visit Provider Obstetrics & Gynecology | DX: N95.0 Postmenopausal bleeding (principal); R10.2 Pelvic and perineal pain | CPT/HCPCS: 76830; 83001; 84450 ==

== ENCOUNTER → 2020-03-19 14:08 | Outpatient (BNVA) | payer MEDICARE, SELFPAY | PROVIDERS: PCP Family Medicine; Visit Provider Anesthesiology | DX: M51.36 Other intervertebral disc degeneration, lumbar region (principal); M54.16 Radiculopathy, lumbar region; M50.90 Cervical disc disorder, unspecified, unspecified cervical region; M79.602 Pain in left arm; Z79.891 Long term (current) use of opiate analgesic | CPT/HCPCS: 99214 ==

== ENCOUNTER 2020-03-20 12:46 | Outpatient (CLI) | payer MEDICARE, SELFPAY ==
--- NOTE | 2020-03-20 13:02 | CT_ITS ---
WS: [id number] CT ABDOMEN AND PELVIS WITH CONTRAST HISTORY: DYSFUNCTIONAL UTERINE BLEEDING TECHNIQUE: Imaging performed of the abdomen and pelvis with IV contrast. Single phase imaging of the abdomen. Coronal and sagittal reformats are submitted. All CT scans at [facility] use at least one of these dose optimization techniques: automated exposure control; mA and/or kV adjustment per patient size (includes targeted exams where dose is matched to clinical indication); or iterativ e reconstruction. IV CONTRAST: Omnipaque 300; 95 mL IV. Oral contrast: Yes. DLP: 1622.7 mGy.cm COMPARISON: 12/01/2019 Lower thorax: Lung bases are clear. Heart is normal size. No hiatal hernia. Liver/biliary system: Moderate hepatic steatosis. Moderate hepatomegaly also. No bile duct dilatation or mass. Gallbladder: Status post cholecystectomy. Pancreas: Normal. Spleen: Normal size spleen with granulomata. Adrenal glands: Normal. Right kidney: Normal size kidney with a nonobstructing 1.0 cm calcification in the lower pole. Left kidney: Normal. Aorta: Normal. Lymphadenopathy: None. Free fluid: None. GI tract: History of appendectomy. No GI tract obstruction. Abdominal wall: Unremarkable abdominal wall. No hernia. Pelvis: Mildly thickened endometrium with fluid. Endometrium measures at least 13 mm. LEFT ovarian cy st measures 2.5 cm. History of tubal ligation. Bones: Unremarkable. CT/CT abdomen pelvis w con* [id number] IMPRESSION: 1. Mildly enlarged endometrium as described on a recent transvaginal pelvic ul trasound. The transvaginal pelvic ultrasound is a more accurate way to determin e endometrial size and thickness. Recommend direct hysteroscopy based upon the ultrasound findings. 2. Small LEFT ovarian cyst. 3. Nonobstructing 10 mm calcification RIGHT kidney. 4. Status post cholecystectomy. 5. Moderate hepatic steatosis and hepatomegaly.
[2020-03-20] MEDS: iohexol 300 mg/mL 50 mL Btl PO (15:23)
[2020-03-20] MEDS: iohexol 300 mg/mL 100 mL Btl IV (15:24)
== END 2020-03-20 12:47 | disposition home or self-care (01) ==
LOC: RADWPI 12:49
PROVIDERS: PCP Family Medicine; Visit Provider Family Medicine
DX: N93.9 Abnormal uterine and vaginal bleeding, unspecified (principal); N85.00 Endometrial hyperplasia, unspecified; K76.0 Fatty (change of) liver, not elsewhere classified; R16.0 Hepatomegaly, not elsewhere classified; N28.89 Other specified disorders of kidney and ureter; N83.202 Unspecified ovarian cyst, left side
CPT/HCPCS: 74177; Q9967

== ENCOUNTER → 2020-03-26 15:27 | Outpatient (BNVA) | payer MEDICARE, SELFPAY | PROVIDERS: PCP Family Medicine; Visit Provider Obstetrics & Gynecology | DX: Z11.59 Encounter for screening for other viral diseases (principal) | CPT/HCPCS: 87635 ==

== ENCOUNTER 2020-04-01 06:20 | Day surgery (SDC) | payer MEDICARE, SELFPAY ==
[2020-03-28 12:23] VITALS: BMI 60.0
--- NOTE | 2020-03-28 12:28 | ECG_ITS ---
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 Measurements Intervals [place] Rate: 77 P: 48 MT: 156 QRS: -23 QRSD: 88 T: 6 QT: 376 QTc: 427 Interpretive Statements SINUS RHYTHM BORDERLINE LEFT AXIS DEVIATION [QRS AXIS < -20] MINIMAL VOLTAGE CRITERIA FOR LVH, CONSIDER NORMAL VARIANT [MEETS CRITERIA IN ONE OF: R(aVL), S(V1), R(V5), R(V5/V6)+S(V1)] Compared to ECG 12/20/2019 05:38:53 No significant changes Electronically Signed On 03-29-2020 8:18:41 CDT by Kaylin Pozo M.D. [id number]
[2020-03-28 12:53] LABS: Basophils % 0.6 %; Eosinophils # 0.3 10^3/uL (0.0-0.8); Eosinophils % 4.5 %; Hematocrit 43.3 % (37.0-47.0); Hemoglobin 13.7 g/dL (11.5-15.3); Lymphocytes # 1.3 10^3/uL (0.8-4.8); Lymphocytes % 19.6 %; Mean Corpuscular HGB Conc 31.6 g/dL (30.0-36.0); Mean Corpuscular Hemoglobin 30.2 pg (28.0-34.0); Mean Corpuscular Volume 95.6 fL (81-99); Mean Platelet Volume 10.3 fL (7.4-10.4); Monocytes # 0.4 10^3/uL (0.2-0.9); Monocytes % 5.8 %; Neutrophils # 4.44 10^3/uL (1.8-7.7); Neutrophils % 69.2 %; Nucleated Red Blood Cells % 0 %; Platelet Count 246 10^3/cmm (130-400); Red Blood Count 4.53 10^6/uL (4.1-5.3); Red Cell Distribution Width 13.2 % (12.1-15.1); White Blood Count 6.4 10^3/uL (4.0-10.0)
[2020-03-28 13:18] LABS: Anion Gap 16.2 (5-19); Blood Urea Nitrogen 19 mg/dL (6-20); Calcium 9.2 mg/dL (8.5-10.5); Carbon Dioxide 28 mmol/L (22-29); Chloride 96 mmol/L (98-107); Glomerular Filtration Rate 105.4 mL/min (90-130); Glucose 227 mg/dL (65-115); Osmolality Calculated 291 mOsm/kg (285-295); Potassium 4.2 mmol/L (3.5-5.1); Sodium 136 mmol/L (136-145)
--- NOTE | 2020-03-28 13:19 | P.ANESASSM_ITS ---
Pre-Anesthetic Assessment Pre-Anesthetic Assessment: Height/Weight: Height 1.63 m Weight 158.757 kg Preop Diagnosis: Postmenopausal bleeding Proposed Procedure: Operation Date: 04/01/20 09:35 Proposed Procedures p Hysteroscopy with polypectomy paracervical block 85453 [id number] N95.0(Not Applicable) - Blaise Red MD s Dilation And Curettage (D&C) 57260 N95.0(Not Applicable) - Blaise Red MD Familial anesthetic complications: Vomited, aspirated while asleep, and developed pneumonia - Has occurred twice despite fasting appropriately during h er surgery States she does best w/ propofol has trouble laying flat Social: Social History: No alcohol and No tobacco Exam: Pre-Anes Outpt Exam: alert, oriented x 3, clear to auscultation bilaterally and regular rate & rhythm Airway: Cervical ROM: WNL MP: 4 Dentition: Full Additional comments: large neck circumference Pulmonary: Pulmonary: Asthma and Sleep apnea Comments: Used to have pulmonary hypertension secondary to take weight loss drug and has been off any medication (trachleer) for several years. CV/HEM: CV/HEM: Arrythmia (cardia XT for bigeminy related to radiation, recent 30 day monitor showed only pvcs and first degree av block), CHF and HTN Hepatic: Comments: fatty liver Metabolic: Metabolic: DM, Hyperlipidemia, Morbid obesity and Thyroid (in the past) Musc/skel: Musc/skel: Fibromyalgia and Lower Back Pain Anesthetic Plan: ASA status: 4 Anesthesia: General Other: RSI for aspiration risk and will do propofol TIVA to prevent PONV and place NG tube duri ng surgery. Will not extubate until awake and in the upright position. Patient educated on anesthesia plan. She has had to be reintubated after extubation before because she was a lazy breather, so we will minimize narcotics. Risk of > 500 ml blood loss (7ml/kg in children): No PFSH Anesthesia PFSH: Medical History Acute bilateral low back pain Acute neck pain Acute radicular low back pain Arm numbness Asthma Cervical disc disorder, unspecified, unspecified cervical region Chronic pain of left upper extremity Disc disorder Encounter for long-term opiate analgesic use Fibromyalgia muscle pain Hydrosalpinx Diagnosed in 2012. Has been followed by [facility] Onc in [place]. Hyperlipidemia Hypertension Morbid (severe) obesity due to excess calories Neoplasm related pain (acute) (chronic) Opioid contract exists Type 2 diabetes mellitus without complications Surgical History H/O elbow surgery (~1988) Left H/O mastectomy (07/10/12) Subtotal left mastectomy.Dx: Invasive ductal carcinoma of the left breast H/O tubal ligation (~1987) History of appendectomy (~1992) History of cholecystectomy (~2000) [place] node 2012 with recurrence 2016 Status post left breast lumpectomy (~2011) Family History Father Hypertension Mother CAD (coronary artery disease) Grandmother Thyroid disease paternal Social History Smoking and tobacco status: never smoked Alcohol intake: never Substance/Drug Use: never Data Anesthesia CBC & Chem 7: 03/28/20 12:46 03/28/20 12:46 Other Labs: Laboratory Results - last 48 hr 03/28/20 03/28/20 12:46 12:46 WBC 6.4 RBC 4.53 Hgb 13.7 Hct 43.3 MCV 95.6 MCH 30.2 MCHC 31.6 RDW 13.2 Plt Count 246 MPV 10.3 Neut % (Auto) 69.2 Lymph % (Auto) 19.6 [place] % (Auto) 5.8 Eos % (Auto) 4.5 Baso % (Auto) 0.6 Neut # (Auto) 4.44 Lymph # (Auto) 1.3 [place] # (Auto) 0.4 Eos # (Auto) 0.3 Baso # (Auto) 0.0 Nucleated RBC % (auto) 0 Nucleated RBCs # 0.0 Sodium 136 Potassium 4.2 Carbon Dioxide 28 Anion Gap 16.2 BUN 19 Creatinine 0.6 GFR Calculation 105.4 Calculated Osmolality 291 Calcium 9.2 Cardiac Studies: No Data to Display
[2020-04-01] VITALS (8 sets, daily range): BP systolic 130–195; BP diastolic 56–87; PULSE 57–82; RESP 16–20; TEMP 36.1–36.8; O2SAT 93–99
--- NOTE | 2020-04-01 06:43 | P.ANESUD_ITS ---
Pre-Anesthetic Update Pre-Anesthetic Assessment: Date of Surgery/Procedure: 04/01/20 Preop Nikki gnosis: Postmenopausal bleeding Proposed Procedure: Operation Date: 04/01/20 07:30 Proposed Procedures p Hysteroscopy with polypectomy paracervical block 63124 57227 98135 N95.0(Not Applicable) - Blaise Red MD s Dilation And Curettage (D&C) 09207 N95.0(Not Applicable) - Blaise Red MD Any changes to Pre-Anesthetic Assessment?: No Last Intake: Intake Last Liquid Date 03/31/20 Last Liquid Time 23:00 Last Solid Date 03/31/20 Last Solid Time 19:00 Vitals: Temperature 98.3 F 04/01/20 06:32 Temperature Source Temporal Artery S can 04/01/20 06:32 Pulse Rate 82 04/01/20 06:32 Pulse Rhythm 04/01/20 06:32 Pulse Strength 3+ Normal 04/01/20 06:32 Respiratory Rate 18 04/01/20 06:32 Blood Pressure 195/76 04/01/20 06:32 Blood Pressure Miriam n 115 04/01/20 06:32 Pulse Oximetry 96 04/01/20 06:32 Oxygen Delivery Me thod 04/01/20 06:32 Exam: Pre-Anes Outpt Exam: alert, oriented x 3, clear to auscultation bilaterally and regular rate & rhythm Cardiac Studies: No Data to Display
[2020-04-01] MEDS: sodium chloride 0.9% 1,000 ML 30 ML IV (06:49)
[2020-04-01] MEDS: ketorolac 30 mg/mL INJ IVP (06:50)
[2020-04-01 06:58] LABS: Glucose Point of Care 179 mg/dL (70-110)
--- NOTE | 2020-04-01 07:22 | P.HPUD_ITS ---
Surgery/Procedure H&P Update DATE OF PROCEDURE: April 01, 2020 DATE H&P PERFORMED: 03/27/20 H&P UPDATE INFORMATION: I have reviewed H&P completed within last 30 days, I have examined patient prior to procedure, No changes to prior documentation and H&P is in [facility] EMR on date indicated PREOP DIAGNOSIS: Postmenopausal bleeding PLANNED PROCEDURE: Operation Date: 04/01/20 07:30 Proposed Procedures p Hysteroscopy with polypectomy paracervical block 80039 99984 70679 N95.0(Not Applicable) - Blaise Red MD s Dilation And Curettage (D&C) 62887 N95.0(Not Applicable) - Bliase Red MD
--- NOTE | 2020-04-01 07:22 | W.PM.OPSUD ---
Surgery/Procedure H&P Update DATE OF PROCEDURE: April 01, 2020 DATE H&P PERFORMED: 03/27/20 H&P UPDATE INFORMATION: I have reviewed H&P completed within last 30 days, I have examined patient prior to procedure, No changes to prior documentation and H&P is in [facility] EMR on date indicated PREOP DIAGNOSIS: Postmenopausal bleeding PLANNED PROCEDURE: Operation Date: 04/01/20 07:30 Proposed Procedures p Hysteroscopy with polypectomy paracervical block 94883 59684 81203 N95.0(Not Applicable) - Blaise Red MD s Dilation And Curettage (D&C) 73327 N95.0(Not Applicable) - Blaise Red MD
[2020-04-01] MEDS: midazolam 1 mg/mL INJ 2 mL 2 MG IVP (07:33)
[2020-04-01] MEDS: scopolamine 1.5 Patch 1 PATCH TRANSDERMA (07:50)
[2020-04-01] MEDS: metoclopramide 5 mg/mL SDV 2 mL 10 MG IVP (07:50)
[2020-04-01] MEDS: famotidine 20 mg/2 mL INJ IVP (07:50)
--- NOTE | 2020-04-01 08:46 | PM.OP ---
Operative Report Date of procedure: April 01, 2020 Pre-op Diagnosis: Postmenopausal bleeding Post-op Diagnosis: Postmenopausal bleeding Procedure Done: Hysteroscopy with dilation and curettage, Paracervical block Specimens removed/disposition: Endometrial curettings Surgeon: Blaise Red Residential Child Care Counselor: None Anesthesia: General, Other (Paracervical block) and None Estimated blood loss (mL): 5 IV fluids (mL): 1,000 Urine output (mL): 150 Complications: None Findings: Third-degree uterine prolapse under anesthesia. Small uterine septum noted with the right horn larger than the left. No fibroids or polyps noted. Normal-appearing lining to the endometrial cavity. Brief History: Patient is a 49-year-old female 0 with chemotherapy induced menopause. She had presented to the office on 02/08/2020 with follow-up of an adnexal cyst. She was being followed in [place] by gynecologic oncologist due to the cyst which was thought to most likely represent a benign cyst. At her visit in my office she also complained of vaginal bleeding that had occurred in December that was similar to a menses including PMS symptoms. She bled for 4 days at the time. She had not had a menses since 2011 after receiving chemotherapy for breast cancer. She had denied any further bleeding since that time. Ultrasound performed on 03/12/2020 showed an endometrial stripe of 1.1 cm with a hypoechoic area present within the endometrial cavity, which was suspicious for an endometrial polyp. Based upon this, further evaluation was recommended. As a result she is now presenting for this. Procedure: The patient was taken to the operating room where general anesthesia was obtained. She was prepped and draped in the usual sterile fashion in the dorsal supine position with legs in Tony style stirrups. Sequential compression boots had been placed prior to starting the case. Patient had voided just before coming to the operating room. Exam under anesthesia was performed and the patient was noted to have third-degree uterine prolapse. A weighted speculum was placed in the vagina and the cervix was grasped with a single-tooth tenaculum. A paracervical block was performed with a total of 12 mL of 2% lidocaine with epinephrine used. The cervix was serially dilated until a operative hysteroscope could be passed. Crystalloid solution was used as a distention media. The endometrial cavity was inspected and appeared normal. She had a small uterine septum with the right uterine horn being larger than the left. Tubal ostia were visualized. No polyps or submucosal fibroids noted. Hysteroscope was removed. Endometrial cavity was curetted until there was a gritty texture throughout the cavity. The tenaculum was removed and there was minimal bleeding from the tenaculum site. Patient tolerated the procedure well. Sponge and needle counts were correct. DRAINS: None POSTOPERATIVE STATUS: The patient was transferred to the recovery room in satisfactory condition DISPOSITION: Discharge to home when criteria was met. FOLLOWUP APPOINTMENT: Followup appointment had been scheduled on 04/16/2020 in my office. MEDICATIONS: Patient to resume her usual home medications. May use [id number] Tylenol and ibuprofen as needed.
--- NOTE | 2020-04-01 10:20 | ANE.PACU2 ---
Inpatient post-anesthesia follow up: Airway intact: Yes Vital signs: Temperature 97.2 F Pulse Rate 57 Respiratory Rate 18 Blood Pressure 130/56 Pulse Oximetry 93 Oxygen Delivery Me thod Room Air Oxygen Flow Rate 8 Fraction of Inspir ed Oxygen Hydration adequate: Yes Nausea and vomiting: No Pain level: 1 Mental status: Baseline
== END 2020-04-01 10:20 | disposition home or self-care (01) ==
PROVIDERS: Anesthesiology; PCP Family Medicine; Visit Provider Obstetrics & Gynecology
PROC: 0UJD8ZZ Inspection of Uterus and Cervix, Via Natural or Artificial Opening Endoscopic (ICD-10-PCS; CPT 58555; principal; 2020-04-01 07:30)
PROC: (CPT 58120; 2020-04-01 07:30)
DX: N95.0 Postmenopausal bleeding (principal); E11.9 Type 2 diabetes mellitus without complications; J45.909 Unspecified asthma, uncomplicated; G47.30 Sleep apnea, unspecified; I11.0 Hypertensive heart disease with heart failure; I50.9 Heart failure, unspecified; E66.01 Morbid (severe) obesity due to excess calories; Z68.44 Body mass index [BMI] 60.0-69.9, adult; M79.7 Fibromyalgia; E78.5 Hyperlipidemia, unspecified; Z82.49 Family history of ischemic heart disease and other diseases of the circulatory system
CPT/HCPCS: 58558; 12345; 36416; 80048; 82962; 85025; 88305; 93005; 96374; 96375; J0330; J1885; J2250; J2704; J2710; J2765; J3010; J3490; J7030

== ENCOUNTER → 2020-05-27 12:49 | Outpatient (BNVA) | payer MEDICARE, SELFPAY | PROVIDERS: PCP Family Medicine; Visit Provider Anesthesiology | DX: G89.29 Other chronic pain (principal); M54.42 Lumbago with sciatica, left side; M54.41 Lumbago with sciatica, right side; M51.36 Other intervertebral disc degeneration, lumbar region; M54.16 Radiculopathy, lumbar region; M50.90 Cervical disc disorder, unspecified, unspecified cervical region; M79.602 Pain in left arm; Z79.891 Long term (current) use of opiate analgesic | CPT/HCPCS: 99214 ==

== ENCOUNTER 2020-06-02 13:02 | Outpatient (CLI) | payer MEDICARE, SELFPAY ==
[2020-06-02 14:10] LABS: Basophils % 0.4 %; Eosinophils # 0.2 10^3/uL (0.0-0.8); Eosinophils % 3.5 %; Hematocrit 40.6 % (37.0-47.0); Hemoglobin 12.6 g/dL (11.5-15.3); Lymphocytes # 1.4 10^3/uL (0.8-4.8); Mean Corpuscular Hemoglobin 30.4 pg (28.0-34.0); Mean Corpuscular Volume 98.1 fL (81-99); Mean Platelet Volume 10.1 fL (7.4-10.4); Monocytes # 0.3 10^3/uL (0.2-0.9); Monocytes % 5.4 %; Neutrophils # 3.27 10^3/uL (1.8-7.7); Neutrophils % 62.9 %; Nucleated Red Blood Cells % 0 %; Platelet Count 205 10^3/cmm (130-400); Red Blood Count 4.14 10^6/uL (4.1-5.3); Red Cell Distribution Width 13.5 % (12.1-15.1); White Blood Count 5.2 10^3/uL (4.0-10.0)
[2020-06-02 14:21] LABS: Alanine Aminotransferase 23 U/L (0-33); Albumin Level 4.7 g/dL (3.5-5.2); Alkaline Phosphatase 68 IU/L (35-105); Anion Gap 14.5 (5-19); Aspartate Amino Transferase 18 U/L (0-32); Blood Urea Nitrogen 12 mg/dL (6-20); Calcium 9.2 mg/dL (8.5-10.5); Carbon Dioxide 30 mmol/L (22-29); Chloride 99 mmol/L (98-107); Globulin 2.6 g/dL (1.3-4.6); Glomerular Filtration Rate 130.1 mL/min (90-130); Glucose 235 mg/dL (65-115); Osmolality Calculated 295 mOsm/kg (285-295); Potassium 4.5 mmol/L (3.5-5.1); Sodium 139 mmol/L (136-145); Total Bilirubin 0.4 mg/dL (0.15-1.2); Total Protein 7.3 g/dL (6.6-8.7)
== END 2020-06-02 13:03 | disposition home or self-care (01) ==
LOC: ONCMED 13:05
PROVIDERS: PCP Family Medicine; Visit Provider Internal Medicine Medical Oncology
DX: D64.9 Anemia, unspecified (principal)
CPT/HCPCS: 36415; 80053; 85025

== ENCOUNTER 2020-06-03 05:55 | Outpatient (CLI) | payer MEDICARE, SELFPAY ==
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
== END 2020-06-03 05:56 | disposition home or self-care (01) ==
LOC: ONCMED 05:56
PROVIDERS: PCP Family Medicine; Visit Provider Nurse Practitioner
DX: M79.622 Pain in left upper arm (principal); N64.4 Mastodynia; R07.89 Other chest pain; Z85.3 Personal history of malignant neoplasm of breast; M79.89 Other specified soft tissue disorders; R53.83 Other fatigue; M79.10 Myalgia, unspecified site; R25.2 Cramp and spasm; E55.9 Vitamin D deficiency, unspecified; D50.8 Other iron deficiency anemias; Z92.21 Personal history of antineoplastic chemotherapy; Z92.3 Personal history of irradiation; Z90.12 Acquired absence of left breast and nipple
CPT/HCPCS: 99214

== ENCOUNTER 2020-06-30 06:04 | Outpatient (CLI) | payer MEDICARE, SELFPAY ==
--- NOTE | 2020-07-03 11:35 | ONC FU_ITS ---
Dr. Kenyon Patient Follow-Up Note Patient: Neeru Cedillo Unit #: [id number]: [id number] Dicatated By: Jeremy Kenyon M.D.Date of Visit:Jun 30, 2020 Telehealth Progress Note The patient has been informed that the visit may not be secure and acknowledged the information. I have explained the option of participating in a telephone or video visit during the [facility] [place] [facility] to the patient. After being given an opportunity to ask questions about and discuss this type of visit, the patient verbally consented to proceeding with the telephone/video visit. the patient understands that this service replaces an office visit and they may be billed and /or responsible for any applicable copayments Chief Complaint: Breast cancer. History of Present Illness: This is a 49 year-old woman with grade 3 invasive ductal carcinoma of the left breast, stage IIB (T2, N1, M0), ER/VA negative and HER-2/enoc negative. She had presented in February 2012 with a lump in the left breast. Mammogram did show some architectural distortion which was new from a study in November 2009. Ultrasound showed an irregular mass measuring 1.0 x 1.3 x 2 cm which was felt to be suspicious. Needle biopsy of the mass did confirm high-grade invasive carcinoma which was ER/VA negative and HER-2/enoc negative. She was then referred to [facility] for further treatment. Evaluation there included breast MRI, and on that study the tumor reportedly measured 2.9 cm. She also underwent staging evaluation with bone scan and CT scans of the chest and abdomen/pelvis. The only significant finding was an indeterminate 1.9 cm hepatic lesion which on MRI was felt to be consistent with benign hemangioma. At that time, she also had biopsy proven involvement in a palpable left axillary lymph node. She had clinical stage IIB disease (T2, N1, M0). She was given neoadjuvant chemotherapy with 4 cycles of Taxotere/cyclophosphamide. She had a good clinical response to the chemotherapy. She then underwent left partial mastectomy and left axillary lymph node dissection on 07/10/2012. Pathology showed residual grade 3/3 invasive ductal carcinoma measuring 1.8 centimeters in maximum diameter. The final margins were negative. There was no involvement in 12 axillary lymph nodes. Her post treatment staging was ypT1c, ypN0. She then completed radiation to the left breast. On a follow-up visit at [facility] in 2015 she was found to have an abnormal breast MRI. Her staging PET/CT reportedly showed involvement in lymph nodes and nerves. She underwent surgical biopsy which confirmed recurrent triple negative breast cancer. Her subsequent treatment included 4 cycles of carboplatin/Taxol chemotherapy followed by radiation. She completed treatment on 06/02/2016. She then continued follow-up at [facility], including regular surveillance mammograms and breast MRI. She also had follow-up with a reformatory attendant and a liver specialist. 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 She has type 2 diabetes. She has mild mitral regurgitation, and her records indicate that she has had heart failure with normal left ventricular function. She also has been evaluated for possible cardiac arrhythmia. In September [address] pulmonary angiogram showed filling defects within a right lower lobe tertiary pulmonary artery suggestive of pulmonary embolism. She started anticoagulation with rivaroxaban, but she had an apparent adverse reaction to it, and she subsequently changed to warfarin. She stopped anticoagulation in September 2014. INTERIM HISTORY: Due to the coronavirus pandemic, she had missed her scheduled followup visit at [facility] in September. I had seen her for a scheduled visit in October. At that time she reported increased pain and swelling in the left chest wall and left arm. Her mammogram was unrevealing. Left breast ultrasound on 11/15/2019 showed very dense shadowing tissue at the 11 o'clock position which was felt to be consistent with postoperative fibrosis. There was no evidence of pathologic mass or lesion. At her scheduled follow-up on 06/03/2020 she complained of increased pain and swelling in the left chest wall and axillary area and she also reported increased pain/swelling and numbness in the left arm. A restaging PET/CT was requested, but denied by her insurance. She is seen for a follow-up visit by Telehealth. Since her visit last month the pain and swelling in the left breast and arm have improved somewhat, but she is still having pretty severe pain in her ribs and back. Her energy is so low that she is virtually not functioning. She complains of being completely exhausted. Her ECOG score is 2. Appetite has decreased. Her temperature is slightly elevated at times, up to 99.6 degrees. She sometimes feels hot, but she does not have actual hot flashes or night sweating. Her breathing is not good, but it has not gotten any worse. She does not have cough and she does not complain of chest pain. She had a lot of nausea this past week. She also reports having a lot of abdominal pain, which she attributes to her CPAP blowing air into her stomach. Bowel function has been okay. She has frequent urination. She says she has pain over her entire body and she also reports having knots all over her body. Lately she has had a lot of headaches. She has orthostatic lightheadedness. She has numbness in her left arm and hand. She has started taking Prozac for anxiety. She is still not sleeping well. Medications: Albuterol Sulfate HFA Aerosol, solution Inhalation PRN, Ativan 0.5 - 1 (1 mg) Tablet Oral t.i.d. PRN, Cartia XT 2 Tablet (of 180 mg) Capsule SR 24 HR Oral daily, Cholecalciferol 2 (37594 Units) Tablet Oral q 14 days, Cholecalciferol 1 (2000 Units) Tablet Oral daily, HumuLIN R Injection Take as Directed, Hydrocodone-Acetaminophen 2 Tablet (of 10-325 mg) Oral four times a day PRN, Lasix 1 Tablet (of 40 mg) Oral daily PRN, Magnesium 2 (400 mg) Capsule Oral b.i.d., metFORMIN HCl 1 Tablet (of 1000 mg) Oral daily, Morphine Sulfate (Concentrate) 0.25 - 0.5 (10 mg/0.5mL) Solution Oral q 2 to 3 hours PRN, Promethazine HCl 1 (25 mg) Tablet Oral q 6 hours PRN, Questran (10 g/dose) Powder Oral Take as Directed, Zanaflex 1 (4 mg) Tablet Oral PRN Allergies: BIAXIN, COMPAZINE , DEMEROL, DILAUDID, DOXYCYCLINE, DROPERIDOL, ERYTHROMYCIN, Metoprolol Tartrate, PCN, TraMADol HCl, VERAPAMIL, Xarelto, and ZOFRAN. Lab/Imaging: Test performed on Jun 02, 2020 13:45 Sodium 139 mmol/L Potassium 4.5 mmol/L Chloride 99 mmol/L CO2 30 mmol/L Anion Gap 14.5 BUN 12 mg/dL Creatinine 0.5 mg/dL Cr Clearance (Est) 341.8100 mL/min eGFR 130.1 mL/min Glucose 235 mg/dL Osmolality - Calculated 295 mOsm/kg Calcium 9.2 mg/dL Protein, Total 7.3 g/dL Albumin 4.7 g/dL Globulin 2.6 g/dL Bilirubin, Total 0.4 mg/dL ALT (SGPT) 23 U/L AST (SGOT) 18 U/L Alkaline Phosphatase 68 IU/L WBC 5.2 10 3/uL RBC 4.14 10 6/uL HGB 12.6 g/dL HCT 40.6 % MCV 98.1 fL MCH 30.4 pg MCHC 31.0 g/dL RDW 13.5 % Platelet Count 205 10 3/cmm MPV 10.1 fL Neutrophils 3.27 10 3/uL Lymphocytes 1.4 10 3/uL Monocytes 0.3 10 3/uL Eosinophils 0.2 10 3/uL Basophils 0.0 10 3/uL Neutrophil % 62.9 % Lymphocyte % 27.0 % Monocyte % 5.4 % Eosinophil % 3.5 % Basophils % 0.4 % NRBC % 0 % Impression: 1. The patient was diagnosed in March 2012 with grade 3 invasive ductal carcinoma of the left breast, stage IIB (T2, N1, M0), ER/VA negative and HER-2/enoc negative. 2. Her treatment included neoadjuvant chemotherapy with 4 cycles of cyclophosphamide/Taxotere followed by left partial mastectomy and left axillary lymph node dissection on 07/10/2012. She then completed radiation to the left breast. 3. She had biopsy proven recurrence in the left breast. Her treatment included chemotherapy with 4 cycles of carboplatin/Taxol followed by additional radiation, completed on 06/02/2016. 4. She had evidence of pulmonary embolism by CT pulmonary angiogram in September 2013. She was treated initially with rivaroxaban and subsequently with warfarin. She stopped anticoagulation in September 2014. Her other medical illnesses include: 5. Hypertension. 6. Type II diabetes. 7. Mild asthma. 8. Pulmonary hypertension. 9. Obstructive sleep apnea. 10. She has chronic muscular skeletal pain and fatigue, consistent with fibromyalgia. 11. She has degenerative arthritis/degenerative disease of the spine. 12. Anxiety/depression. 13. She has had evidence of iron deficiency anemia. She has had ongoing complaints of pain in the left chest wall/axillary area and left arm, and increased numbness in the left arm. She also has had pain in both breast. She has severe fatigue and generalized body pain. Thus far there has been no documentation for any further recurrence/progression of the breast cancer. Plan: For now she remains on observation/symptomatic management. I will plan a follow-up visit with her yearly mammogram in October. Ideally, she should have a repeat MRI of the left breast/axilla, but she is aware that she would have to return to [facility] in [place] for that study. Signed By: Jeremy Kenyon M.D. <<Signature on File>>
== END 2020-06-30 06:05 | disposition home or self-care (01) ==
LOC: ONCMED 06:06
PROVIDERS: PCP Family Medicine; Visit Provider Internal Medicine Medical Oncology
DX: Z08 Encounter for follow-up examination after completed treatment for malignant neoplasm (principal); Z85.3 Personal history of malignant neoplasm of breast; R07.89 Other chest pain; M79.602 Pain in left arm; N64.4 Mastodynia; R20.0 Anesthesia of skin; R53.83 Other fatigue; Z90.12 Acquired absence of left breast and nipple; Z92.21 Personal history of antineoplastic chemotherapy

== ENCOUNTER → 2020-07-22 13:30 | Outpatient (BNVA) | payer MEDICARE, SELFPAY | PROVIDERS: PCP Family Medicine; Visit Provider Anesthesiology | DX: G89.29 Other chronic pain (principal); M51.36 Other intervertebral disc degeneration, lumbar region; M50.90 Cervical disc disorder, unspecified, unspecified cervical region; Z79.891 Long term (current) use of opiate analgesic | CPT/HCPCS: 99213 ==

== ENCOUNTER 2020-08-14 09:19 | Outpatient (CLI) | payer MEDICARE, SELFPAY ==
--- NOTE | 2020-08-14 09:24 | MM_ITS ---
WS: [id number] DIAGNOSTIC BILATERAL DIGITAL MAMMOGRAM WITH CAD HISTORY: HX OF BREAST CA COMPARISON: 11/02/2019, 12/12/2018 and 03/27/2018 TECHNIQUE: Bilateral craniocaudad, mediolateral oblique, and mediolateral views are submitted. Comput er aided detection utilized. Breast composition: There are scattered areas of fibroglandular density. Volume loss in the LEFT dominic st with diffuse mild skin thickening. Postsurgical changes and dystrophic calcifications in the upper outer quadrant. No suspicious masses or developing calcifications. MM/[place] [id number] IMPRESSION: BI-RADS: 2-Benign FOLLOW UP: 1 Year Follow-up
[2020-08-14 10:33] LABS: Basophils % 0.5 %; Eosinophils # 0.3 10^3/uL (0.0-0.8); Eosinophils % 4.4 %; Hematocrit 39.5 % (37.0-47.0); Hemoglobin 12.7 g/dL (11.5-15.3); Lymphocytes # 1.6 10^3/uL (0.8-4.8); Lymphocytes % 26.3 %; Mean Corpuscular HGB Conc 32.2 g/dL (30.0-36.0); Mean Corpuscular Hemoglobin 31.6 pg (28.0-34.0); Mean Corpuscular Volume 98.3 fL (81-99); Mean Platelet Volume 9.8 fL (7.4-10.4); Monocytes # 0.4 10^3/uL (0.2-0.9); Monocytes % 6.8 %; Neutrophils # 3.76 10^3/uL (1.8-7.7); Neutrophils % 61.2 %; Nucleated Red Blood Cells % 0 %; Platelet Count 229 10^3/cmm (130-400); Red Blood Count 4.02 10^6/uL (4.1-5.3); Red Cell Distribution Width 13.3 % (12.1-15.1); White Blood Count 6.2 10^3/uL (4.0-10.0)
[2020-08-14 11:11] LABS: 25 Hydroxy Vitamin D 22 ng/mL (30-100); Alanine Aminotransferase 15 U/L (0-33); Albumin Level 4.5 g/dL (3.5-5.2); Alkaline Phosphatase 67 IU/L (35-105); Anion Gap 13.4 (5-19); Aspartate Amino Transferase 12 U/L (0-32); Blood Urea Nitrogen 18 mg/dL (6-20); Calcium 9.6 mg/dL (8.5-10.5); Carbon Dioxide 26 mmol/L (22-29); Chloride 99 mmol/L (98-107); Globulin 2.8 g/dL (1.3-4.6); Glomerular Filtration Rate 130.1 mL/min (90-130); Glucose 152 mg/dL (65-115); Magnesium 1.4 mg/dL (1.7-2.3); Osmolality Calculated 283 mOsm/kg (285-295); Potassium 4.4 mmol/L (3.5-5.1); Sodium 134 mmol/L (136-145); Thyroid Stimulating Hormone 3.35 uIU/mL (0.27-4.20); Total Bilirubin 0.4 mg/dL (0.15-1.2); Total Protein 7.3 g/dL (6.6-8.7)
== END 2020-08-14 09:20 | disposition home or self-care (01) ==
LOC: ONCMED 09:21
PROVIDERS: PCP Family Medicine; Visit Provider Internal Medicine Medical Oncology
DX: Z85.3 Personal history of malignant neoplasm of breast (principal); R53.83 Other fatigue
CPT/HCPCS: 36415; 77066; 80053; 82306; 83735; 84443; 85025

== ENCOUNTER → 2020-09-19 12:45 | Outpatient (BNVA) | payer MEDICARE, SELFPAY | PROVIDERS: PCP Family Medicine; Visit Provider Nurse Practitioner | DX: G89.28 Other chronic postprocedural pain (principal); M54.6 Pain in thoracic spine; E66.01 Morbid (severe) obesity due to excess calories; M50.90 Cervical disc disorder, unspecified, unspecified cervical region; M79.602 Pain in left arm; I97.2 Postmastectomy lymphedema syndrome; Z79.891 Long term (current) use of opiate analgesic | CPT/HCPCS: 99215 ==

== ENCOUNTER → 2020-10-07 11:44 | Outpatient (BNVA) | payer MEDICARE, SELFPAY | PROVIDERS: PCP Family Medicine; Visit Provider Nurse Practitioner | DX: G89.29 Other chronic pain (principal); M54.5 Low back pain; M50.90 Cervical disc disorder, unspecified, unspecified cervical region; M79.602 Pain in left arm; Z79.891 Long term (current) use of opiate analgesic | CPT/HCPCS: 99215 ==

== ENCOUNTER → 2020-10-30 13:48 | Outpatient (BNVA) | payer MEDICARE, SELFPAY | PROVIDERS: PCP Family Medicine; Visit Provider Anesthesiology | DX: G89.28 Other chronic postprocedural pain (principal); M54.41 Lumbago with sciatica, right side; M51.36 Other intervertebral disc degeneration, lumbar region; M54.2 Cervicalgia; M79.602 Pain in left arm; I97.2 Postmastectomy lymphedema syndrome; R20.0 Anesthesia of skin; Z79.891 Long term (current) use of opiate analgesic | CPT/HCPCS: 99213 ==

== ENCOUNTER → 2020-12-25 14:31 | Outpatient (BNVA) | payer MEDICARE, SELFPAY | PROVIDERS: PCP Family Medicine; Visit Provider Nurse Practitioner | DX: G89.29 Other chronic pain (principal); M51.36 Other intervertebral disc degeneration, lumbar region; M54.16 Radiculopathy, lumbar region; M50.90 Cervical disc disorder, unspecified, unspecified cervical region; I97.2 Postmastectomy lymphedema syndrome; E66.01 Morbid (severe) obesity due to excess calories; M79.7 Fibromyalgia; M54.9 Dorsalgia, unspecified; M79.602 Pain in left arm; R20.0 Anesthesia of skin; Z79.891 Long term (current) use of opiate analgesic | CPT/HCPCS: 99214 ==

== ENCOUNTER 2021-01-08 01:57 | Emergency (ER) | payer MEDICARE, SELFPAY ==
[2021-01-08 01:59] VITALS: PULSE 89; RESP 20; TEMP 37.1; O2SAT 97; BMI 60.0
--- NOTE | 2021-01-08 02:08 | XRR_ITS ---
PROCEDURE INFORMATION: Exam: XR Right Shoulder Exam date and time: 01/08/2021 2:04 AM Age: 50 years old Clinical indication: Injury or trauma; Blunt trauma (contusions or hematomas); Right; Patient HX: Fall this am onto RT side C/O shoulder and RT upper rib pain. Best images obtained due to PT condition and habitus. TECHNIQUE: Imaging protocol: XR Right shoulder. Views: 2 or more views. COMPARISON: CR XR chest 2V* [id number] 09/04/2020 3:51 PM FINDINGS: Bones/joints: Comminuted right proximal humeral fracture. Calcifications of the rotator cuff tendons. Soft tissues: Normal. XR/XR shoulder RT min 2V* [id number] IMPRESSION: Comminuted right proximal humeral fracture.
--- NOTE | 2021-01-08 02:11 | XRR_ITS ---
PROCEDURE INFORMATION: Exam: XR Right Ribs with PA Chest Exam date and time: 01/08/2021 2:19 AM Age: 50 years old Clinical indication: Injury or trauma; Rib area; Blunt trauma (contusions or hematomas); Prior surgery; Surgery type: Left mastectomy. ; Patient HX: Fall this am onto RT side C/O shoulder and RT upper rib pain. Best images obtained due to PT condition and habitus. TECHNIQUE: Imaging protocol: XR Right ribs with PA chest. Views: 3 views COMPARISON: CR XR chest 2V* [id number] 09/04/2020 3:51 PM FINDINGS: Lungs: Unremarkable. No consolidation. Pleural spaces: Unremarkable. No pleural effusion. No pneumothorax. Heart/Mediastinum: Unremarkable. No cardiomegaly. Bones/joints: Comminuted right proximal humeral fracture. No rib fracture. XR/XR ribs RT mn 3V w [id number] IMPRESSION: 1. No rib fracture. 2. Comminuted right proximal humeral fracture.
[2021-01-08 02:15] VITALS: RESP 18
[2021-01-08] MEDS: morphine 4 mg/mL SDV 1 mL IM ×2 (02:15→03:43)
--- NOTE | 2021-01-08 02:21 | ED_ITS ---
HPI - Fall General: Chief Complaint: Fall Stated Complaint: FALL WITH RIGHT SHOULDER PAIN Time Seen by Provider: 01/08/21 02:08 Source: patient Mode of arrival: ambulatory Limitations: no limitations History of Present Illness: HPI Narrative: 50-year-old female states she tripped over her dog roughly 1 hour ago. She states she landed on her right shoulder and her elbow hit her in the ribs. States she has extreme right shoulder pain she rates a 9 out of 10. She denies any head pain denies any loss consciousness. She denies any neck pain. She denies any lower extremity pain. States she has some mild right-sided chest pain. Her pain is much worse with any movement of that arm and improved with rest. Associated symptoms-after fall: Denies abdominal pain, chest pain or headache(s) Review of Systems Const: Denies: fever(s), chills, body aches or change in appetite Eyes: Denies: blurry vision or eye discomfort ENMT: Denies: throat pain or dental pain Card: Denies: chest pain Resp: Denies: dyspnea GI: Denies: abdominal pain, nausea, vomiting or diarrhea : Denies: dysuria Musc: Reports: extremity pain Skin/Breast: Denies: rash Neuro: Denies: headache(s) Psych: Denies: depression Eduardo/Lymph: Denies: easy bruising All/Imm: Denies: urticaria PFSH ED PFSH: Medical History (Updated 01/08/21 @ 03:28 by Lucia Shelley MD) Arm numbness Asthma Cervical disc disorder, unspecified, unspecified cervical region Chronic low back pain Chronic pain of left upper extremity Disc disorder Encounter for long-term opiate analgesic use Fibromyalgia muscle pain Hydrosalpinx Diagnosed in 2012. Has been followed by [facility] in [place]. Hyperlipidemia Hypertension Morbid (severe) obesity due to excess calories Neoplasm related pain (acute) (chronic) Opioid contract exists Type 2 diabetes mellitus without complications Surgical History H/O elbow surgery (~1988) Left H/O mastectomy (07/10/12) Subtotal left mastectomy.Dx: Invasive ductal carcinoma of the left breast H/O tubal ligation (~1987) History of appendectomy (~1992) History of cholecystectomy (~2000) [place] node 2012 with recurrence 2016 Status post left breast lumpectomy (~2011) Family History Father Hypertension Mother CAD (coronary artery disease) Grandmother Thyroid disease paternal Social History Smoking and tobacco status: never smoked Second hand smoke exposure: No Alcohol intake: never History of recent travel: No Physical Exam Const: COMMON NORMALS: no acute distress, patient oriented x3 and healthy appearing HENMT: COMMON NORMALS: normocephalic and atraumatic HEAD & SCALP: normocephalic and atraumatic Eye: COMMON NORMALS: Equal, round and reactive pupils present and EOMs intact bilaterally PUPIL: Yes Equal, round and reactive pupils present Neck/C-Spine: COMMON NORMALS: full ROM and supple Chest: COMMONS NORMALS: normal inspection of the chest and normal palpation of entire chest wall Resp: COMMON NORMALS: normal respiratory effort, No retractions, No use of accessory muscles and clear to auscultation bilaterally AUSCULTATION: clear to auscultation bilaterally Cardio: COMMON NORMALS: regular rate, regular rhythm and No murmurs present (Cardio) RATE: regular rate RHYTHM: regular rhythm GI: COMMON NORMALS: Normal to inspection, nondistended, normoactive bowel sounds present, Soft to palpation, non-tender and no masses PALPATION: Yes Soft to palpation Extremity: COMMON NORMALS: normal to inspection NARRATIVE EXTREMITY EXAM: Tenderness over right shoulder distal pulses and sensation intact patient unable to move that right arm due to pain Neuro: COMMON NORMALS: patient oriented x3, moves all extremities and no focal motor deficits Psych: COMMON NORMALS: mental status grossly normal, Normal thought process present and cooperative THOUGHT PROCESS: Normal thought process present Skin: COMMON NORMALS: no rashes or lesions noted and no wounds GENERAL SKIN EXAM: no rashes or lesions noted Course Vital Signs: Vital signs: Vital Signs Temperature 98.8 F 01/08/21 01:59 Pulse Rate 89 01/08/21 01:59 Respiratory Rate 18 01/08/21 02:15 Pulse Oximetry 97 01/08/21 01:59 MDM - Fall MDM Narrative: Medical decision making narrative: Patient presents here with proximal humerus fracture from a fall. Patient placed in a sling and is to follow-up with orthopedics. She had no other injuries noted. She is stable for discharge and return if worsening. Imaging Data^: xr shoulder: Attestation: I personally reviewed and interpreted this imaging study as kennedy hudson: My impression: Proximal humerus fracture Discharge Plan Discharge Patient Disposition: Home Clinical Impression: Fracture of proximal end of humerus Qualifiers: Encounter type: initial encounter Fracture type: closed Fracture morphology: other fracture Fracture alignment: nondisplaced Laterality: right Qualified Code(s): S42.294A - Other nondisplaced fracture of upper end of right humerus, initial encounter for closed fracture Condition: Stable Prescriptions: No Action cholecalciferol (vitamin D3) 50,000 unit capsule 50,000 unit PO .WEEKLY RF: 0 albuterol sulfate [ProAir HFA] 90 mcg/actuation HFA aerosol inhaler 1 inh INHALATION DAILY PRN (Reason: Shortness Of Breath) RF: 0 lorazepam [Ativan] 1 mg tablet 1 mg PO TID PRN (Reason: Anxiety) RF: 0 furosemide [Lasix] 20 mg tablet 20 mg PO PRN PRN (Reason: UNKNOWN) RF: 0 potassium chloride 10 mEq capsule, extended release 10 meq PO DAILY PRN (Reason: UNKNOWN) RF: 0 albuterol 90 mcg/actuation aerosol 90 mcg INHALATION DAILY RF: 0 magnesium oxide 400 mg magnesium capsule 800 mg PO BID RF: 0 diltiazem HCl [Cartia XT] 120 mg capsule,extended release 24hr 360 mg PO DAILY RF: 0 Humalog U-100 Insulin 100 unit/mL cartridge 1 sliding scale dose SUBCUT .COMPLEX RF: 0 pseudoephedrine HCl 30 mg tablet 30 mg PO DAILY PRN (Reason: UNKNOWN) RF: 0 metformin 500 mg tablet 500 mg PO BID RF: 0 rosuvastatin [Crestor] 5 mg tablet 10 mg PO .WEEKLY RF: 0 fluoxetine [Prozac] 10 mg capsule 10 mg PO DAILY RF: 0 tizanidine 4 mg tablet 4 mg PO TID PRN (Reason: muscle spasticity) 30 Days Qty: 90 RF: 1 hydrocodone-acetaminophen 10-325 mg tablet 2 tab PO TID PRN (Reason: pain) 30 Days Qty: 180 RF: 0 hydrocodone-acetaminophen 10-325 mg tablet 2 tab PO TID PRN (Reason: pain) 30 Days Qty: 180 RF: 0 oxycodone 10 mg tablet 10 mg PO BID PRN (Reason: pain) 30 Days Qty: 60 RF: 0 oxycodone 10 mg tablet 10 mg PO BID PRN (Reason: pain) 30 Days Qty: 60 RF: 0 ascorbic acid (vitamin C) [Vitamin C] 500 mg Tablet 250 mg PO DAILY RF: 0 aspirin 81 mg tablet,chewable 81 mg PO DAILY Qty: 30 RF: 0 promethazine 25 mg tablet 25 mg PO Q4H PRN (Reason: nausea and vomiting) Qty: 20 RF: 0 Discharge Orders: Discharge ED (Routine); Ordered 01/08/21 Ordered By: Lucia Shelley Referrals: uLis Red MD [Primary Care Provider] - 1-3 days Discharge Diet: Advance as tolerated Discharge Activity: Resume usual activity Patient Instructions: Arm Fracture in Adults (ED) Coding Level of Care Code ED [employer] Systems Operator for [place] Fwd Exam Comprehensive
[2021-01-08 03:43] VITALS: RESP 16
[2021-01-08 03:59] VITALS: BP 130/88; PULSE 91; RESP 20; O2SAT 95
--- NOTE | 2021-01-21 09:06 | DCPLANNER ---
platform material handler manager had message to schedule a follow up appointment for patient with ortho for a proximal fracture. platform material handler manager called the ortho clinic, spoke with Isabella, gave clinic patients information. platform material handler manager was told that patients information would be printed and reviewed. Clinic will call patient with appointment information.
--- NOTE | 2021-01-23 14:39 | DCPLANNER ---
Patient had a follow up appointment scheduled for 01.22.[address] Bal at [facility] - patient did attend appointment.
== END 2021-01-08 04:00 | disposition home or self-care (01) ==
PROVIDERS: Emergency Provider Emergency Medicine; PCP Family Medicine
DX: S42.294A Other nondisplaced fracture of upper end of right humerus, initial encounter for closed fracture (principal); Z79.4 Long term (current) use of insulin; Z79.82 Long term (current) use of aspirin; E78.5 Hyperlipidemia, unspecified; I10 Essential (primary) hypertension; E11.9 Type 2 diabetes mellitus without complications; W01.0XXA Fall on same level from slipping, tripping and stumbling without subsequent striking against object, initial encounter
CPT/HCPCS: 71101; 73030; 96372; 99283; J2270

== ENCOUNTER → 2021-01-22 13:45 | Outpatient (BNVA) | payer MEDICARE, SELFPAY | PROVIDERS: PCP Family Medicine; Referring Provider Emergency Medicine; Visit Provider Orthopaedic Surgery | DX: S42.301A Unspecified fracture of shaft of humerus, right arm, initial encounter for closed fracture (principal); X58.XXXA Exposure to other specified factors, initial encounter | CPT/HCPCS: 73030 ==

== ENCOUNTER → 2021-02-26 14:24 | Outpatient (BNVA) | payer MEDICARE, SELFPAY | PROVIDERS: PCP Family Medicine; Visit Provider Nurse Practitioner | DX: G89.29 Other chronic pain (principal); M54.16 Radiculopathy, lumbar region; M51.36 Other intervertebral disc degeneration, lumbar region; M25.511 Pain in right shoulder; M25.521 Pain in right elbow; I97.2 Postmastectomy lymphedema syndrome; M50.90 Cervical disc disorder, unspecified, unspecified cervical region; M79.7 Fibromyalgia; M79.602 Pain in left arm; Z79.891 Long term (current) use of opiate analgesic | CPT/HCPCS: 99214 ==

== ENCOUNTER → 2021-02-27 11:16 | Outpatient (BNVA) | payer MEDICARE, SELFPAY | PROVIDERS: PCP Family Medicine; Visit Provider Orthopaedic Surgery | DX: G89.29 Other chronic pain (principal); M79.602 Pain in left arm | CPT/HCPCS: 73030 ==

== ENCOUNTER → 2021-04-23 13:00 | Outpatient (BNVA) | payer MEDICARE, SELFPAY | PROVIDERS: PCP Family Medicine; Visit Provider Physician Assistant | DX: G89.29 Other chronic pain (principal); S42.201D Unspecified fracture of upper end of right humerus, subsequent encounter for fracture with routine healing; W01.0XXD Fall on same level from slipping, tripping and stumbling without subsequent striking against object, subsequent encounter; M51.36 Other intervertebral disc degeneration, lumbar region; I97.2 Postmastectomy lymphedema syndrome; M54.2 Cervicalgia; E11.9 Type 2 diabetes mellitus without complications; E66.01 Morbid (severe) obesity due to excess calories; Z68.43 Body mass index [BMI] 50.0-59.9, adult; E78.5 Hyperlipidemia, unspecified; I10 Essential (primary) hypertension; Z79.4 Long term (current) use of insulin; Z79.891 Long term (current) use of opiate analgesic | CPT/HCPCS: 73030; 99214 ==

== ENCOUNTER 2021-07-01 11:18 | Outpatient (CLI) | payer MEDICARE, SELFPAY ==
--- NOTE | 2021-07-01 11:22 | CT_ITS ---
WS: [id number] CT ABDOMEN WITHOUT CONTRAST HISTORY: ABDOMINAL WALL MASS OF EPIGASTRIC REGION Contiguous single phase 5 mm axial imaging performed to the abdomen. Oral contrast has not been provi ded. Coronal and sagittal reformats are submitted. All CT scans at [facility] use at least on e of these dose optimization techniques: automated exposure control; mA and/or kV adjustment per naman ent size (includes targeted exams where dose is matched to clinical indication); or iterative reconst ruction. CONTRAST: None DLP: 2461.68 mGy.cm COMPARISON: 03/20/2020 Lower thorax: Unremarkable. Liver: Mildly enlarged liver with diffuse severe low attenuation from hepatic steatosis. Variable den sity. No mass appreciated. Gallbladder: Prior cholecystectomy. Pancreas: Normal. Spleen: Small granulomata. Normal size spleen. Adrenals: Normal. Right kidney: Nonobstructing calcification in the lower pole with a maximum diameter of 8 mm. Ovarian vein calcification. No ureteral calcification. Left kidney: Mild perinephric stranding. No obstruction. Aorta: Normal. GI tract: As visualized within the abdomen no acute abnormalities. No wall thickening or obstruction. No adenopathy or free fluid. Abdominal wall: No hernia. Visualized osseous structures: Supraumbilical abdominal wall hernia contains fat only. CT/CT abdomen wo con [id number] IMPRESSION: 1. Moderate hepatomegaly with severe hepatic steatosis. 2. Prior cholecystectomy. 3. Nonobstructing 8 mm RIGHT renal calculus.
== END 2021-07-01 11:19 | disposition home or self-care (01) ==
LOC: RAD 11:19
PROVIDERS: PCP Family Medicine; Visit Provider Nurse Practitioner Family
DX: R19.06 Epigastric swelling, mass or lump (principal); R16.0 Hepatomegaly, not elsewhere classified; K76.0 Fatty (change of) liver, not elsewhere classified; Z90.49 Acquired absence of other specified parts of digestive tract; N20.0 Calculus of kidney
CPT/HCPCS: 74150

== ENCOUNTER → 2021-07-23 13:49 | Outpatient (BNVA) | payer MEDICARE, SELFPAY | PROVIDERS: PCP Family Medicine; Visit Provider Anesthesiology | DX: G89.28 Other chronic postprocedural pain (principal); M51.36 Other intervertebral disc degeneration, lumbar region; M54.16 Radiculopathy, lumbar region; M50.90 Cervical disc disorder, unspecified, unspecified cervical region; I97.2 Postmastectomy lymphedema syndrome; M79.602 Pain in left arm; R20.0 Anesthesia of skin; M79.7 Fibromyalgia; Z79.891 Long term (current) use of opiate analgesic; Z79.899 Other long term (current) drug therapy | CPT/HCPCS: 99214 ==

== ENCOUNTER → 2021-09-17 16:05 | Outpatient (BNVA) | payer MEDICARE, SELFPAY | PROVIDERS: PCP Family Medicine; Visit Provider Obstetrics & Gynecology | DX: R39.15 Urgency of urination (principal); Z12.4 Encounter for screening for malignant neoplasm of cervix | CPT/HCPCS: 81000; 87624 ==

== ENCOUNTER 2021-10-01 11:34 | Outpatient (CLI) | payer MEDICARE, SELFPAY ==
--- NOTE | 2021-10-01 11:48 | MM_ITS ---
WS: [id number] DIAGNOSTIC BILATERAL 3D TOMOSYNTHESIS DIGITAL MAMMOGRAM WITH CAD HISTORY: HX OF BREAST CA COMPARISON: 08/14/2020, 11/02/2019 and 2008 TECHNIQUE: Bilateral craniocaudad, mediolateral oblique, and mediolateral views are submitted. Comput er aided detection utilized. Breast composition: There are scattered areas of fibroglandular density. Volume loss in the LEFT dominic st and postsurgical changes towards the axilla. Benign calcifications in each breast. Mild thickening of the trabecula and skin thickening LEFT breast from prior treatment. MM/[id number] IMPRESSION: BI-RADS: 2-Benign FOLLOW UP: 1 Year Follow-up
== END 2021-10-01 11:35 | disposition home or self-care (01) ==
PROVIDERS: PCP Family Medicine; Visit Provider Family Medicine
DX: Z85.3 Personal history of malignant neoplasm of breast (principal)
CPT/HCPCS: 77062

== ENCOUNTER 2021-10-02 11:45 | Outpatient (CLI) | payer MEDICARE, SELFPAY ==
--- NOTE | 2021-10-02 11:45 | US_ITS ---
WS: [id number] TRANSABDOMINAL PELVIC AND TRANSVAGINAL PELVIC ULTRASOUND HISTORY: N95.0 - Postmenopausal bleeding COMPARISON: 03/12/2020 Quality of this examination is limited by body habitus. Uterus: 7.6 cm x 4.6 cm x 4.3 cm. Uterus is retroverted as seen on the prior study. No fibroid or mas s identified. Mild heterogeneity in the myometrium but no definite fibroid. Uterus is normal size. Endometrium: 0.6 cm. Endometrium is normal size. The entire endometrium is poorly visualized. The det ail is limited due to body habitus. Right ovary: Not visualized. Left ovary: 2.9 cm x 2.6 cm x 2.3 cm. Poorly visualized ovary. There is a small cyst associated with the ovary measuring 2.3 x 1.8 x 2.2 cm. No free fluid. US/US pelvic with transvaginal IMPRESSION: 1. Suboptimal evaluation of the pelvis and adnexal structures due to body habi tus. 2. No endometrial abnormality identified. If patient continues of postmenopaus al bleeding consider further evaluation by hysteroscopy if this has not been pe rformed recently. 3. RIGHT ovary not identified. There is a small cyst associated with the LEFT ovary.
== END 2021-10-02 11:46 | disposition home or self-care (01) ==
LOC: RAD 11:47
PROVIDERS: PCP Family Medicine; Visit Provider Obstetrics & Gynecology
DX: N95.0 Postmenopausal bleeding (principal)
CPT/HCPCS: 76830; 76856

== ENCOUNTER 2021-10-20 05:59 | Day surgery (SDC) | payer MEDICARE, SELFPAY ==
[2021-10-15 13:49] VITALS: BMI 59.5
--- NOTE | 2021-10-15 14:07 | ECG_ITS ---
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 Measurements Intervals [place] Rate: 73 P: 54 [place]: 193 QRS: -11 QRSD: 90 T: -1 QT: 382 QTc: 423 Interpretive Statements SINUS RHYTHM Compared to ECG 03/28/2020 13:14:52 No significant changes Electronically Signed On 10-15-2021 16:16:34 CDT by Arun Fuentes M.D. [email or web address] Enginesmercy health def[facility] hospital.Manufacturers' Inventory/store/[id number]
[2021-10-15 14:16] LABS: Basophils % 0.4 %; Eosinophils # 0.1 10^3/uL (0.0-0.8); Eosinophils % 1.7 %; Hematocrit 39.4 % (37.0-47.0); Hemoglobin 13.2 g/dL (11.5-15.3); Lymphocytes # 1.2 10^3/uL (0.8-4.8); Lymphocytes % 21.6 %; Mean Corpuscular HGB Conc 33.5 g/dL (30.0-36.0); Mean Corpuscular Hemoglobin 31.2 pg (28.0-34.0); Mean Corpuscular Volume 93.1 fl (81-99); Mean Platelet Volume 9.9 fL (7.4-10.4); Monocytes # 0.3 10^3/uL (0.2-0.9); Monocytes % 5.8 %; Neutrophils # 3.77 10^3/uL (1.8-7.7); Neutrophils % 69.9 %; Nucleated Red Blood Cells % 0 %; Platelet Count 203 10^3/cmm (130-400); Red Blood Count 4.23 10^6/uL (4.1-5.3); Red Cell Distribution Width 12.9 % (12.1-15.1); White Blood Count 5.4 10^3/uL (4.0-10.0)
[2021-10-15 14:40] LABS: Anion Gap 15.3 (5-19); Blood Urea Nitrogen 14 mg/dL (6-20); Calcium 9.8 mg/dL (8.5-10.5); Carbon Dioxide 26 mmol/L (22-29); Chloride 98 mmol/L (98-107); Glomerular Filtration Rate 167.6 mL/min (90-130); Glucose 197 mg/dL (65-115); Osmolality Calculated 286 mOsm/kg (285-295); Potassium 4.3 mmol/L (3.5-5.1); Sodium 135 mmol/L (136-145)
--- NOTE | 2021-10-15 17:04 | ANES.PREANE2 ---
Pre-Anesthetic Assessment Height/Weight: Height 1.63 m Weight 157.397 kg Preop Diagnosis: Postmenopausal bleeding Operation Date: 10/20/21 07:00 Proposed Procedures p Hysteroscopy w/ Myosure [id number]/n95.0(Not Applicable) - Ninoska Stevens MD s Dilation And Curettage (D&C)(Not Applicable) - Ninoska Stevens MD Familial anesthetic complications: Denies family hx of anesthetic complicatons From Dr. Dillon's note - Vomited, aspirated while asleep, and developed pneumonia - Has occurred twice despite fasting appropriately during her surgery States she does best w/ propofol Has personal hx of bronchitis exacerbations and headaches after anesthesia as well an nausea and vomiting Hx of re intubation after extubation Exam alert, oriented x 3, clear to auscultation bilaterally and regular rate & rhythm Airway Submandibular: within normal limits Cervical ROM: within normal limits Mallampati: Class II Dentition: full Pulmonary Asthma (Has been hospitalized for asthma in past, never intubated), Chronic Obstructive Pulmonary Disease (Hx of bronchitis exacerabations requiring hospitalization ), Othopnea and Sleep Apnea Hx of pulmonary htn and did see specialist however per patient was 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 as her pulmonary htn had resolved On home O2 at night with CPAP CV/HEM Arrythmia (Hx of bigeminy and prolonged QT in past related to frequent use of ondansetron), Congestive Heart Failure and Hypertension METS < 4 None reported Hepatic Hx of fatty liver GI Gastroesophageal Reflux Disease S/P appendectomy, cholecystectomy Metabolic Diabetes Mellitus (On insulin ) and Morbid Obesity Has twice participated in bariatric surgery program, once cancelled due to COVID another post poned due to onset of breast cancer [facility] Fibromyalgia, Lower Back Pain and Osteoarthritis/DJD Left axilla/arm lymphadenopathy s/p mastectomy Neuropsych Anxiety Cervical disc disorder Anesthetic Plan ASA status: 4 (50 year old super morbid obese female ) Anesthesia: Anesthesia Evaluation and General Other: We discussed risk and benefits of general anesthesia including PONV, sore throat (sometimes severe), corneal abrasion, positioning and peripheral nerve injuries, life threatening allergic reaction, post operative ICU admission requiring prolonged intubation, stroke, heart attack, , and rare incidences of recall. Patient consents to proceed with general anesthesia. Plan RSI due to hx of aspiration in past w/ NG during surgery. Fully awake and upright extubation. Plan minimized narcotics due hx of of reintubation after surgery. Plan TIVA for hx of PONV. The patient uses promethazine at home and would like promethazine on DOS. Allergy to ondansetron, per patient hx of prolonged QT when using it frequently and advised not to take. Plan pre op diphenhydraminie, promethazine, and intra op dexamethasone along with TIVA for PONV ppx. Risk of > 500 ml blood loss (7ml/kg in children): No Other Pertinent Information I conducted a brief motivational interview with the patient regarding weight loss. I asked the patient about her current barriers and related success stories that I am personally aware of. Patient has gone through bariatric surgery prep twice only to have the surgery cancelled once due to cancer treatment and another due to COVID. Mrs. Cedillo struggles now because she stays at home due concern for COVID 19 related infection. Staying at home she has gained 20 - 30 pounds. Patient was appreciative of today's pre op visit. Medications/Allergies Home Medications Medication Instructions Recorded Confirmed Last Taken Type albuterol 90 mcg/actuation aerosol 90 mcg INHALATION DAILY 07/23/19 10/15/21 Unknown History inhaler albuterol sulfate 90 mcg/actuation 1 inh INHALATION DAILY PRN 07/23/19 10/15/21 Unknown History aerosol inhaler (ProAir HFA) diltiazem HCl 120 mg 360 mg PO DAILY cap 07/23/19 10/15/21 03/31/20 History capsule,extended release 24 hr (Cartia XT) insulin lispro 100 unit/mL 1 sliding scale dose SUBCUT 07/23/19 10/15/21 03/31/20 History subcutaneous cartridge (Humalog .COMPLEX ml U-100 Insulin) lorazepam 1 mg tablet (Ativan) 1 mg PO TID PRN 07/23/19 10/15/21 03/31/20 History magnesium oxide 800 mg PO BID cap 07/23/19 10/15/21 03/31/20 History metformin 500 mg tablet 500 mg PO BID 07/23/19 10/15/21 03/30/20 History potassium chloride 10 mEq 10 meq PO DAILY PRN cap 07/23/19 10/15/21 Unknown History capsule,extended release pseudoephedrine HCl 30 mg tablet 30 mg PO DAILY PRN 07/23/19 10/15/21 Unknown History cholecalciferol (vitamin D3) 1,250 50,000 unit PO .WEEKLY cap 07/24/19 10/15/21 03/30/20 History mcg (50,000 unit) capsule promethazine 25 mg tablet 25 mg PO Q4H PRN #20 tab 12/01/19 10/15/21 03/31/20 Rx hydrocodone 10 mg-acetaminophen 2 tab PO TID PRN 30 Days #180 tab 07/23/21 10/15/21 Unknown Rx 325 mg tablet oxycodone 10 mg tablet 10 mg PO BID PRN 30 Days #60 tab 07/23/21 10/15/21 Unknown Rx oxycodone 10 mg tablet 10 mg PO BID PRN 30 Days #60 tab 07/23/21 10/15/21 Unknown Rx tizanidine 4 mg tablet 4 mg PO TID PRN 30 Days #90 tab 07/23/21 10/15/21 Unknown Rx hydrocodone 10 mg-acetaminophen 2 tab PO TID PRN 30 Days #180 tab 07/31/21 10/15/21 Unknown Rx 325 mg tablet cbd oil SUBLINGUAL QID 09/17/21 10/15/21 Unknown History ergocalciferol (vitamin D2) 1,000 3,000 unit PO DAILY cap 09/17/21 10/15/21 Unknown History unit capsule furosemide 20 mg tablet (Lasix) 40 mg PO PRN PRN tab 09/17/21 10/15/21 Unknown History Allergies Allergy/AdvReac Type Severity Reaction Status Date / Time clarithromycin [From Biaxin] Allergy rash yeast Verified 10/15/21 15:46 infection clonazepam Allergy increas Verified 10/15/21 15:46 heart rate and hypertension doxycycline Allergy hypertensio Verified 10/15/21 15:46 n droperidol Allergy hypertensio Verified 10/15/21 15:46 n erythromycin base Allergy hives and Verified 10/15/21 15:46 anaphylaxis escitalopram [From Lexapro] Allergy ADR-Hyperte Verified 10/15/21 15:46 nsion hydrocodone Allergy HEART RACE Verified 10/15/21 15:46 [From Hysingla ER] hydromorphone [Dilaudid] Allergy hypertension, Verified 10/15/21 15:46 tachycardia latex Allergy ADR-Abdominal Verified 10/15/21 15:46 Pain meperidine [Demerol] Allergy hives Verified 10/15/21 15:46 metoprolol Allergy ADR-Hyperte Verified 10/15/21 15:46 nsion ondansetron [From Zofran] Allergy abnormal Verified 10/15/21 15:46 EKG penicillin G Allergy as a Verified 10/15/21 15:46 child, swelling prochlorperazine Allergy hypotension Verified 10/15/21 15:46 [From Compazine] rivaroxaban [From Xarelto] Allergy hypertension, Verified 10/15/21 15:46 tachycardia tramadol Allergy tachycardia Verified 10/15/21 15:46 verapamil Allergy hypotension Verified 10/15/21 15:46 [facility] Anesthesia Medical History Acute joint pain Arm numbness Asthma Cervical disc disorder, unspecified, unspecified cervical region Chronic low back pain Chronic pain of left upper extremity Disc disorder Encounter for long-term opiate analgesic use Fibromyalgia muscle pain Hydrosalpinx Diagnosed in 2012. Has been followed by [facility] in [place]. Hyperlipidemia Hypertension Morbid (severe) obesity due to excess calories Neoplasm related pain (acute) (chronic) Opioid contract exists Syncope and collapse Type 2 diabetes mellitus without complications Surgical History H/O elbow surgery (~1988) Left H/O mastectomy (07/10/12) Subtotal left mastectomy.Dx: Invasive ductal carcinoma of the left breast H/O tubal ligation (~1987) History of appendectomy (~1992) History of cholecystectomy (~2000) [place] node 2012 with recurrence 2016 Status post left breast lumpectomy (~2011) Family History Father Hypertension Mother CAD (coronary artery disease) Grandmother Thyroid disease paternal Data Anesthesia : 10/15/21 14:05 10/15/21 14:05 Short CBC 10/15/21 Range/Units 14:05 WBC 5.4 (4.0-10.0) 10^3/uL Hgb 13.2 (11.5-15.3) g/dL Hct 39.4 (37.0-47.0) % MCV 93.1 (81-99) fl Plt Count 203 (130-400) 10^3/cmm Neut % (Auto) 69.9 % Neut # (Auto) 3.77 (1.8-7.7) 10^3/uL BMP 10/15/21 14:05 Sodium 135 L Potassium 4.3 Chloride 98 Carbon Dioxide 26 BUN 14 Creatinine 0.4 L Glucose 197 H Calcium 9.8 Cardiac Studies: No Data to Display
[2021-10-20] VITALS (9 sets, daily range): BP systolic 155–195; BP diastolic 79–113; PULSE 69–95; RESP 16–20; TEMP 36.6–37.2; O2SAT 97–100
[2021-10-20] MEDS: sodium chloride 0.9% 1,000 ML 30 ML IV (06:33)
[2021-10-20 06:36] LABS: Glucose Point of Care 207 mg/dL (70-110)
[2021-10-20] MEDS: ketorolac 30 mg/mL INJ IVP (06:43)
[2021-10-20 06:47] LABS: Basophils % 0.4 %; Eosinophils # 0.1 10^3/uL (0.0-0.8); Eosinophils % 1.8 %; Hematocrit 41.7 % (37.0-47.0); Hemoglobin 13.2 g/dL (11.5-15.3); Lymphocytes # 1.3 10^3/uL (0.8-4.8); Lymphocytes % 23.6 %; Mean Corpuscular HGB Conc 31.7 g/dL (30.0-36.0); Mean Corpuscular Volume 94.8 fl (81-99); Mean Platelet Volume 10.3 fL (7.4-10.4); Monocytes # 0.4 10^3/uL (0.2-0.9); Monocytes % 6.5 %; Neutrophils # 3.72 10^3/uL (1.8-7.7); Neutrophils % 67.5 %; Nucleated Red Blood Cells % 0 %; Platelet Count 219 10^3/cmm (130-400); Red Cell Distribution Width 12.9 % (12.1-15.1); White Blood Count 5.5 10^3/uL (4.0-10.0)
[2021-10-20] MEDS: diphenhydrAMINE 50 mg/mL SDV 1mL 12.5 MG IVP (07:00)
--- NOTE | 2021-10-20 07:01 | W.PM.OPSUD ---
Surgery/Procedure H&P Update DATE OF PROCEDURE: October 20, 2021 DATE H&P PERFORMED: 10/15/21 H&P UPDATE INFORMATION: I have reviewed H&P completed within last 30 days, I have examined patient prior to procedure and No changes to prior documentation PREOP DIAGNOSIS: PMB PLANNED PROCEDURE: Operation Date: 10/20/21 07:00 Proposed Procedures p Hysteroscopy w/ Myosure 85406/[id number]/n95.0(Not Applicable) - Ninoska Stevens MD s Dilation And Curettage (D&C)(Not Applicable) - Ninoska Stevens MD Related Problem List Diagnoses (1) Postmenopausal bleeding: (2) Morbid (severe) obesity due to excess calories:
[2021-10-20 07:05] LABS: Anion Gap 16.9 (5-19); Blood Urea Nitrogen 16 mg/dL (6-20); Calcium 9.9 mg/dL (8.5-10.5); Carbon Dioxide 25 mmol/L (22-29); Chloride 99 mmol/L (98-107); Glucose 212 mg/dL (65-115); Osmolality Calculated 291 mOsm/kg (285-295); Potassium 3.9 mmol/L (3.5-5.1); Sodium 137 mmol/L (136-145)
[2021-10-20] MEDS: ceFAZolin 3,000 MG in sodium chloride 0.9% (100 ml) 100 ML 200 MG IV (07:08)
[2021-10-20 07:10] LABS: OR HCG Qualitative Urine Negative (Negative)
--- NOTE | 2021-10-20 07:32 | P.ANESUD_ITS ---
Pre-Anesthetic Update Pre-Anesthetic Assessment: Date of Surgery/Procedure: 10/20/21 Preop Nikki gnosis: PMB Proposed Procedure: Operation Date: 10/20/21 07:00 Proposed Procedures p Hysteroscopy w/ Myosure [id number]/n95.0(Not Applicable) - Ninoska Stevens MD s Dilation And Curettage (D&C)(Not Applicable) - Ninoska Stevens MD Any changes to Pre-Anesthetic Assessment?: No Last Intake: Intake Last Liquid Date 10/19/21 Last Liquid Time 22:30 Last Solid Date 10/19/21 Last Solid Time 21:30 Labs Last 48hrs: Short CBC 10/20/21 Range/Units 06:33 WBC 5.5 (4.0-10.0) 10^3/ uL Hgb 13.2 (11.5-15.3) g/dL Hct 41.7 (37.0-47.0) % MCV 94.8 (81-99) fl Plt Count 219 (130-400) 10^3/c mm Neut % (Auto) 67.5 % Neut # (Auto) 3.72 (1.8-7.7) 10^3/u L BMP 10/20/21 06:33 Sodium 137 Potassium 3.9 Chloride 99 Carbon Dioxide 25 BUN 16 Creatinine 0.6 Glucose 212 H Calcium 9.9 Vitals: Temperature 99 F 10/20/21 06:19 Temperature Source Temporal Artery S can 10/20/21 06:19 Oxygen Delivery Me thod 10/20/21 06:19 Exam: Pre-Anes Outpt Exam: alert, oriented x 3, clear to auscultation bilaterally and regular rate & rhythm Cardiac Studies: No Data to Display
--- NOTE | 2021-10-20 08:03 | P.OP_ITS ---
Operative Report Date of procedure: October 20, 2021 Pre-op diagnosis: Preop Diagnosis PMB Post-op diagnosis: same Post-op diagnosis: same with grade 3 uterine prolapse Post-op findings: Thickened endometrium Procedure done: hysteroscopy, dilation and curettage with myosure Specimens removed/disposition: endometrial curettings to pathology Surgeon: Ninoska Stevens Anesthesia: General Estimated blood loss (mL): 5 IV fluids (mL): 500 Complications: none Findings: 9 week sized uterus. Grade 3 uterine prolapse hysteroscopy deficit: 250 ml Condition: stable Disposition: PACU Procedure: The patient was taken to the operating room where monitored anesthesia was administered and to be adequate. She was prepped and draped in the normal sterile fashion in the dorsal lithotomy position in [facility]. A weighted speculum was placed into the vagina and the anterior lip of the cervix grasped with a single-tooth tenaculum. The uterus was sounded to 9 cm. The cervix was dilated to 16 [place]. The hysteroscope was advanced into the endometrial cav ity. There was an evenly thickened endometrium visualized. The MyoSure device was activated and the tissue was removed. Pictures were taken pre and post procedure. All instruments were removed. The patient tolerated the procedure well. Sponge lap and needle counts were correct x3. She was taken to the recovery room in stable condition.
--- NOTE | 2021-10-20 08:09 | PM.DCS ---
Discharge Providers Date of Admission: 10/20/21 Date of Discharge: October 20, 2021 Attending Provider at Discharge: Ninoska Stevens MD Primary Care Provider: Luis Red MD Diagnoses at Discharge Discharge Diagnosis (1) Postmenopausal bleeding: Status: Acute (2) Morbid (severe) obesity due to excess calories: Status: Chronic Reason for Visit Reason for Visit: post menopausal bleeding Hospital Course Hospital Course The patient was admitted for surgery. She did well postoperatively and was ready for discharge. Discharge Data Studies Completed and Pending Pending at discharge Category Date Time Status ES surgery / GI images Routine Exams 10/20/21 06:40 Taken Pathology: Surgical [PTH] Routine Pth 10/20/21 07:58 Ordered Laboratory Results WBC 5.5 10^3/uL (4.0-10.0) 10/20/21 06:33 RBC 4.40 10^6/uL (4.1-5.3) 10/20/21 06:33 Hgb 13.2 g/dL (11.5-15.3) 10/20/21 06:33 Hct 41.7 % (37.0-47.0) 10/20/21 06:33 MCV 94.8 fl (81-99) 10/20/21 06:33 MCH 30.0 pg (28.0-34.0) 10/20/21 06:33 MCHC 31.7 g/dL (30.0-36.0) 10/20/21 06:33 RDW 12.9 % (12.1-15.1) 10/20/21 06:33 Plt Count 219 10^3/cmm (130-400) 10/20/21 06:33 MPV 10.3 fL (7.4-10.4) 10/20/21 06:33 Neut % (Auto) 67.5 % 10/20/21 06:33 Lymph % (Auto) 23.6 % 10/20/21 06:33 Sunflower % (Auto) 6.5 % 10/20/21 06:33 Eos % (Auto) 1.8 % 10/20/21 06:33 Baso % (Auto) 0.4 % 10/20/21 06:33 Neut # (Auto) 3.72 10^3/uL (1.8-7.7) 10/20/21 06:33 Lymph # (Auto) 1.3 10^3/uL (0.8-4.8) 10/20/21 06:33 Sunflower # (Auto) 0.4 10^3/uL (0.2-0.9) 10/20/21 06:33 Eos # (Auto) 0.1 10^3/uL (0.0-0.8) 10/20/21 06:33 Baso # (Auto) 0.0 10^3/uL (0.0-0.1) 10/20/21 06:33 Nucleated RBC % (auto) 0 % 10/20/21 06:33 Nucleated RBCs # 0.0 /100WBC 10/20/21 06:33 Sodium 137 mmol/L (136-145) 10/20/21 06:33 Potassium 3.9 mmol/L (3.5-5.1) 10/20/21 06:33 Chloride 99 mmol/L (98-107) 10/20/21 06:33 Carbon Dioxide 25 mmol/L (22-29) 10/20/21 06:33 Anion Gap 16.9 (5-19) 10/20/21 06:33 BUN 16 mg/dL (6-20) 10/20/21 06:33 Creatinine 0.6 mg/dL (0.5-0.9) 10/20/21 06:33 GFR Calculation 105.0 mL/min (90-130) 10/20/21 06:33 Glucose 212 mg/dL (65-115) H 10/20/21 06:33 POC Glucose 207 mg/dL (70-110) H 10/20/21 06:29 Calculated Osmolality 291 mOsm/kg (285-295) 10/20/21 06:33 Calcium 9.9 mg/dL (8.5-10.5) 10/20/21 06:33 Urine HCG, Qual Negative (Negative) 10/20/21 06:36 Vitals Last Vital Signs Temp 99 F 10/20/21 06:19 Discharge Plan Discharge Patient Disposition: Home Condition: Stable Prescriptions: Continued cholecalciferol (vitamin D3) 50,000 unit capsule 50,000 unit PO .WEEKLY 0RF Rx Instructions: PT STATES SHE TAKES THIS 2 TIMES PER WEEK. SHE DOESN'T REMEMBER WHEN SHE TOOK IT LAST. albuterol sulfate [ProAir HFA] 90 mcg/actuation HFA aerosol inhaler 1 inh INHALATION DAILY PRN (Reason: Shortness Of Breath) 0RF lorazepam [Ativan] 1 mg tablet 1 mg PO TID PRN (Reason: Anxiety) 0RF potassium chloride 10 mEq capsule, extended release 10 meq PO DAILY PRN (Reason: UNKNOWN) 0RF Rx Instructions: WHEN TAKING LASIX albuterol 90 mcg/actuation aerosol 90 mcg INHALATION DAILY 0RF magnesium oxide 400 mg magnesium capsule 800 mg PO BID 0RF diltiazem HCl [Cartia XT] 120 mg capsule,extended release 24hr 360 mg PO DAILY 0RF Humalog U-100 Insulin 100 unit/mL cartridge 1 sliding scale dose SUBCUT .COMPLEX 0RF Rx Instructions: 1 sliding scale dose SUBCUT PER SLIDING SCALE; PER SLIDING SCALE pseudoephedrine HCl 30 mg tablet 30 mg PO DAILY PRN (Reason: UNKNOWN) 0RF metformin 500 mg tablet 500 mg PO BID 0RF furosemide [Lasix] 20 mg tablet 40 mg PO PRN PRN (Reason: UNKNOWN) 0RF hydrocodone-acetaminophen 10-325 mg tablet 2 tab PO TID PRN (Reason: pain) 30 Days Qty: 180 0RF Rx Instructions: Fill on or after 08/28/21 oxycodone 10 mg tablet 10 mg PO BID PRN (Reason: pain) 30 Days Qty: 60 0RF Rx Instructions: fill on or after 08/30/21 tizanidine 4 mg tablet 4 mg PO TID PRN (Reason: muscle spasticity) 30 Days Qty: 90 0RF ergocalciferol (vitamin D2) 1,000 unit capsule 3,000 unit PO DAILY 0RF cbd oil oil sublingual QID 0RF Label Comments: Contains THC hydrocodone-acetaminophen 10-325 mg tablet 2 tab PO TID PRN (Reason: pain) 30 Days Qty: 180 0RF Rx Instructions: fill on or after 07/29/21 promethazine 25 mg tablet 25 mg PO Q4H PRN (Reason: nausea and vomiting) Qty: 20 0RF Discharge Orders: Discharge Order (Routine); Ordered 10/20/21 Ordered By: Ninoska Stevens Discharge Attestations Time Spent in Discharge Care*: less than 30 min Quality Metrics Clinical Quality Measures [ No reported AMI, CVA or VTE this stay] Coding Level of Care Code Acute Chg FW DC note Diagnoses Postmenopausal bleeding N95.0 Morbid (severe) obesity due to excess calories E66.01
--- NOTE | 2021-10-20 15:31 | ANE.PACU2 ---
Inpatient post-anesthesia follow up: Airway intact: Yes Vital signs: Temperature 97.9 F Pulse Rate 69 Respiratory Rate 18 Blood Pressure 155/81 Pulse Oximetry 97 Oxygen Delivery Me thod Room Air Oxygen Flow Rate 6 Fraction of Inspir ed Oxygen Hydration adequate: Yes Nausea and vomiting: No Pain level: 2 Mental status: Baseline
== END 2021-10-20 09:35 | disposition home or self-care (01) ==
PROVIDERS: Anesthesiology; PCP Family Medicine; Visit Provider Obstetrics & Gynecology
PROC: 0UDB8ZZ Extraction of Endometrium, Via Natural or Artificial Opening Endoscopic (ICD-10-PCS; CPT 58558; principal; 2021-10-20 07:00)
PROC: (CPT 58120; 2021-10-20 07:00)
DX: N81.3 Complete uterovaginal prolapse (principal); N95.0 Postmenopausal bleeding; E66.01 Morbid (severe) obesity due to excess calories; Z68.43 Body mass index [BMI] 50.0-59.9, adult; M79.7 Fibromyalgia; E78.5 Hyperlipidemia, unspecified; I10 Essential (primary) hypertension; E11.9 Type 2 diabetes mellitus without complications
CPT/HCPCS: 58558; 36415; 36416; 80048; 81025; 82962; 84703; 85025; 88305; 93005; J0690; J1200; J1885; J2250; J2704; J2710; J3010; J3490; J7030; J7611

== ENCOUNTER 2022-02-12 14:38 | Outpatient (CLI) | payer MEDICARE, SELFPAY ==
[2022-02-18 14:23] LABS: Pancreatic Elastase-1 278 mcg/g
== END 2022-02-12 14:39 | disposition home or self-care (01) ==
LOC: LAB 14:41
PROVIDERS: PCP Family Medicine; Visit Provider Family Medicine
DX: R19.7 Diarrhea, unspecified (principal)
CPT/HCPCS: 83520

== ENCOUNTER 2022-02-22 07:48 | Day surgery (SDC) | payer MEDICARE, SELFPAY ==
[2022-02-19 08:27] VITALS: BMI 59.5
--- NOTE | 2022-02-22 07:56 | W.PM.OPSFHP ---
Same Day Surgery H&P Indication for Procedure/HPI DATE OF PROCEDURE: February 22, 2022 CHIEF COMPLAINT/INDICATIONFOR SURGICAL PROCEDURE: Dysphagia PREOP DIAGNOSIS: dysphagia PLANNED PROCEDURE: Operation Date: 02/22/22 09:00 Proposed Procedures p EGD Dilation W/ [place]ougie 83940,R13.10(Not Applicable) - Anam Agarwal MD Medications/Allergies* Home Medications Medication Instructions Recorded Confirmed Type albuterol 90 mcg/actuation aerosol 90 mcg inhalation DAILY PRN 07/23/19 02/19/22 History inhaler Shortness Of Breath albuterol sulfate 90 mcg/actuation 1 inh inhalation DAILY PRN 07/23/19 02/19/22 History aerosol inhaler (ProAir HFA) Shortness Of Breath diltiazem HCl 120 mg 360 mg PO DAILY 07/23/19 02/19/22 History capsule,extended release 24 hr (Cartia XT) insulin lispro 100 unit/mL 1 sliding scale dose SUBCUT 07/23/19 02/19/22 History subcutaneous cartridge (Humalog .COMPLEX U-100 Insulin) lorazepam 1 mg tablet (Ativan) 1 mg PO TID PRN Anxiety 07/23/19 02/19/22 History magnesium oxide 800 mg PO BID 07/23/19 02/19/22 History metformin 500 mg tablet 500 mg PO BID 07/23/19 02/19/22 History potassium chloride 10 mEq 10 meq PO DAILY PRN UNKNOWN 07/23/19 02/19/22 History capsule,extended release pseudoephedrine HCl 30 mg tablet 30 mg PO DAILY PRN UNKNOWN 07/23/19 02/19/22 History cholecalciferol (vitamin D3) 1,250 50,000 unit PO DAILY 07/24/19 02/19/22 History mcg (50,000 unit) capsule cbd oil 1 applic sublingual QID pain 09/17/21 02/19/22 History ergocalciferol (vitamin D2) 1,000 3,000 unit PO .WEEKLY 09/17/21 02/19/22 History unit capsule furosemide 20 mg tablet (Lasix) 40 mg PO PRN PRN UNKNOWN 09/17/21 02/19/22 History enalapril maleate 5 mg tablet 5 mg PO DAILY 10/28/21 02/19/22 History Allergies/Adverse Reactions Allergy/AdvReac Type Severity Reaction Status Date / Time clarithromycin [From Biaxin] Allergy rash yeast Verified 02/16/22 10:40 infection clonazepam Allergy increas Verified 02/16/22 10:40 heart rate and hypertension doxycycline Allergy hypertensio Verified 02/16/22 10:40 n droperidol Allergy hypertensio Verified 02/16/22 10:40 n erythromycin base Allergy hives and Verified 02/16/22 10:40 anaphylaxis escitalopram [From Lexapro] Allergy ADR-Hyperte Verified 02/16/22 10:40 nsion hydrocodone Allergy HEART RACE Verified 02/19/22 09:35 [From Hysingla ER] hydromorphone [Dilaudid] Allergy hypertension, Verified 02/16/22 10:40 tachycardia latex Allergy ADR-Abdominal Verified 02/16/22 10:40 Pain meperidine [Demerol] Allergy hives Verified 02/16/22 10:40 metoprolol Allergy ADR-Hyperte Verified 02/16/22 10:40 nsion ondansetron [From Zofran] Allergy abnormal Verified 02/16/22 10:40 EKG penicillin G Allergy as a Verified 02/16/22 10:40 child, swelling prochlorperazine Allergy hypotension Verified 02/16/22 10:40 [From Compazine] rivaroxaban [From Xarelto] Allergy hypertension, Verified 02/16/22 10:40 tachycardia tramadol Allergy tachycardia Verified 02/16/22 10:40 verapamil Allergy hypotension Verified 02/16/22 10:40 Pertinent History/Comorbid Conditions* Medical History (Updated 02/16/22 @ 11:25 by Anam Agarwal MD) Acute joint pain Arm numbness Asthma Cervical disc disorder, unspecified, unspecified cervical region Chronic low back pain Chronic pain of left upper extremity Disc disorder Encounter for long-term opiate analgesic use Fibromyalgia muscle pain Hydrosalpinx Diagnosed in 2013. Has been followed by [facility] in [place]. Hyperlipidemia Hypertension Morbid (severe) obesity due to excess calories Neoplasm related pain (acute) (chronic) Opioid contract exists Syncope and collapse Type 2 diabetes mellitus without complications Surgical History (Updated 02/11/20 @ 17:55 by Blaise Red MD) H/O elbow surgery (~1988) Left H/O mastectomy (07/10/12) Subtotal left mastectomy.Dx: Invasive ductal carcinoma of the left breast H/O tubal ligation (~1987) History of appendectomy (~1992) History of cholecystectomy (~2000) [place] node 2012 with recurrence 2016 Status post left breast lumpectomy (~2011) Family History (Updated 02/08/20 @ 11:26 by Jannette Malik LPN) CAD (coronary artery disease) Mother Hypertension Father Thyroid disease Grandmother paternal Pertinent Exam Findings alert, oriented x 3, clear to auscultation bilaterally, regular rate & rhythm, operative site marked and procedure specific exam findings Recommendations Surgery/Procedure today Coding Level of Care Code Acute Marketing Services Specialist for [facility]
[2022-02-22] MEDS: sodium chloride 0.9% 1,000 ML 30 ML IV (08:13)
[2022-02-22 08:16] VITALS: BP 162/64; PULSE 80; RESP 18; TEMP 37.1; O2SAT 95
--- NOTE | 2022-02-22 09:40 | ANES.PREANE2 ---
Pre-Anesthetic Assessment Height/Weight: Height 1.63 m Weight 157.397 kg Temp Pulse Resp BP Pulse Ox O2 Del Method 98.7 F 80 18 162/64 95 02/22/22 08:16 02/22/22 08:16 02/22/22 08:16 02/22/22 08:16 02/22/22 08:16 02/22/22 08:16 Preop Diagnosis: dysphagia Operation Date: 02/22/22 09:00 Proposed Procedures p EGD Dilation W/ Bougie [id number],R13.10(Not Applicable) - Anam Agarwal MD Familial anesthetic complications: None Was Beta Kim taken within 24 hours: N/A Was Clonidine taken within 24 hours: N/A Last intake: Intake Last Liquid Date 02/21/22 Last Liquid Time 23:00 Last Solid Date 02/21/22 Last Solid Time 21:30 Social No alcohol and No tobacco Exam alert, oriented x 3, clear to auscultation bilaterally and regular rate & rhythm Airway Submandibular: within normal limits Cervical ROM: within normal limits Mallampati: Class II Dentition: full Pulmonary Asthma CV/HEM Hypertension Metabolic Diabetes Mellitus, Hyperlipidemia and Morbid Obesity [facility] [place] Fibromyalgia and Lower Back Pain chronic opioid Anesthetic Plan ASA status: 3 Anesthesia: MAC Medications/Allergies Home Medications Medication Instructions Recorded Confirmed Last Taken Type albuterol 90 mcg/actuation aerosol 90 mcg inhalation DAILY PRN 07/23/19 02/22/22 02/21/22 History inhaler Shortness Of Breath albuterol sulfate 90 mcg/actuation 1 inh inhalation DAILY PRN 07/23/19 02/22/22 02/21/22 History aerosol inhaler (ProAir HFA) Shortness Of Breath diltiazem HCl 120 mg 360 mg PO DAILY 07/23/19 02/22/22 02/21/22 History capsule,extended release 24 hr (Cartia XT) insulin lispro 100 unit/mL 1 sliding scale dose SUBCUT 07/23/19 02/22/22 02/21/22 History subcutaneous cartridge (Humalog .COMPLEX U-100 Insulin) lorazepam 1 mg tablet (Ativan) 1 mg PO TID PRN Anxiety 07/23/19 02/22/22 02/21/22 History magnesium oxide 800 mg PO BID 07/23/19 02/22/22 02/21/22 History metformin 500 mg tablet 500 mg PO BID 07/23/19 02/22/22 02/21/22 History potassium chloride 10 mEq 10 meq PO DAILY PRN UNKNOWN 07/23/19 02/22/22 02/21/22 History capsule,extended release pseudoephedrine HCl 30 mg tablet 30 mg PO DAILY PRN UNKNOWN 07/23/19 02/22/22 02/21/22 History cholecalciferol (vitamin D3) 1,250 50,000 unit PO DAILY 07/24/19 02/22/22 02/21/22 History mcg (50,000 unit) capsule promethazine 25 mg tablet 25 mg PO Q4H PRN nausea and 12/01/19 02/22/22 02/21/22 Rx vomiting #20 tabs hydrocodone 10 mg-acetaminophen 2 tab PO TID PRN pain 30 days #180 07/23/21 02/22/22 02/22/22 Rx 325 mg tablet tabs oxycodone 10 mg tablet 10 mg PO BID PRN pain 30 days #60 07/23/21 02/22/22 02/21/22 Rx tabs tizanidine 4 mg tablet 4 mg PO TID PRN muscle spasticity 07/23/21 02/22/22 02/21/22 Rx 30 days #90 tabs cbd oil 1 applic sublingual QID pain 09/17/21 02/22/22 02/21/22 History ergocalciferol (vitamin D2) 1,000 3,000 unit PO .WEEKLY 09/17/21 02/22/22 02/21/22 History unit capsule furosemide 20 mg tablet (Lasix) 40 mg PO PRN PRN UNKNOWN 09/17/21 02/22/22 02/21/22 History enalapril maleate 5 mg tablet 5 mg PO DAILY 10/28/21 02/22/22 02/21/22 History Allergies Allergy/AdvReac Type Severity Reaction Status Date / Time clarithromycin [From Biaxin] Allergy rash yeast Verified 02/22/22 08:09 infection clonazepam Allergy increas Verified 02/22/22 08:09 heart rate and hypertension doxycycline Allergy hypertensio Verified 02/22/22 08:09 n droperidol Allergy hypertensio Verified 02/22/22 08:09 n erythromycin base Allergy hives and Verified 02/22/22 08:09 anaphylaxis escitalopram [From Lexapro] Allergy ADR-Hyperte Verified 02/22/22 08:09 nsion hydrocodone Allergy HEART RACE Verified 02/22/22 08:09 [From Hysingla ER] hydromorphone [Dilaudid] Allergy hypertension, Verified 02/22/22 08:09 tachycardia latex Allergy ADR-Abdominal Verified 02/22/22 08:09 Pain meperidine [Demerol] Allergy hives Verified 02/22/22 08:09 metoprolol Allergy ADR-Hyperte Verified 02/22/22 08:09 nsion ondansetron [From Zofran] Allergy abnormal Verified 02/22/22 08:09 EKG penicillin G Allergy as a Verified 02/22/22 08:09 child, swelling prochlorperazine Allergy hypotension Verified 02/22/22 08:09 [From Compazine] rivaroxaban [From Xarelto] Allergy hypertension, Verified 02/22/22 08:09 tachycardia tramadol Allergy tachycardia Verified 02/22/22 08:09 verapamil Allergy hypotension Verified 02/22/22 08:09 Current Medications Generic Name Dose Route Start Last Admin Trade Name Freq PRN Reason Stop Dose Admin Sodium Chloride 1,000 mls @ 30 mls/hr 02/22/22 08:00 02/22/22 08:13 Sodium Chloride 0.9% IV 02/23/22 07:59 30 mls/hr .Q24H PHILIPPE Administration PFSH Anesthesia Medical History Acute joint pain Arm numbness Asthma Cervical disc disorder, unspecified, unspecified cervical region Chronic low back pain Chronic pain of left upper extremity Disc disorder Encounter for long-term opiate analgesic use Fibromyalgia muscle pain Hydrosalpinx Diagnosed in 2013. Has been followed by [facility] in [place]. Hyperlipidemia Hypertension Morbid (severe) obesity due to excess calories Neoplasm related pain (acute) (chronic) Opioid contract exists Syncope and collapse Type 2 diabetes mellitus without complications Surgical History H/O elbow surgery (~1988) Left H/O mastectomy (07/10/12) Subtotal left mastectomy.Dx: Invasive ductal carcinoma of the left breast H/O tubal ligation (~1987) History of appendectomy (~1992) History of cholecystectomy (~2000) [place] node 2012 with recurrence 2016 Status post left breast lumpectomy (~2011) Family History Father Hypertension Mother CAD (coronary artery disease) Grandmother Thyroid disease paternal Data Anesthesia Cardiac Studies: No Data to Display
[2022-02-22 10:21] VITALS: BP 139/82; PULSE 79; RESP 16; TEMP 36.4; O2SAT 97
--- NOTE | 2022-02-22 12:57 | ANE.PACU2 ---
Inpatient post-anesthesia follow up: Airway intact: Yes Vital signs: Temperature 97.5 F Pulse Rate 79 Respiratory Rate 16 Blood Pressure 139/82 Pulse Oximetry 97 Oxygen Delivery Me thod Room Air Oxygen Flow Rate Fraction of Inspir ed Oxygen Hydration adequate: Yes Nausea and vomiting: No Pain level: 1 Mental status: Baseline
[2022-02-23 13:37] LABS: H. Pylori / CLO Test Negative
== END 2022-02-22 10:42 | disposition home or self-care (01) ==
PROVIDERS: PCP Family Medicine; Visit Provider Internal Medicine
DX: R13.10 Dysphagia, unspecified (principal); K44.9 Diaphragmatic hernia without obstruction or gangrene; K29.70 Gastritis, unspecified, without bleeding; J45.909 Unspecified asthma, uncomplicated; M79.7 Fibromyalgia; E78.5 Hyperlipidemia, unspecified; I10 Essential (primary) hypertension; E66.01 Morbid (severe) obesity due to excess calories; Z68.43 Body mass index [BMI] 50.0-59.9, adult; E11.9 Type 2 diabetes mellitus without complications; Z79.4 Long term (current) use of insulin; Z79.84 Long term (current) use of oral hypoglycemic drugs; Z79.891 Long term (current) use of opiate analgesic
CPT/HCPCS: 43239; 87077; J2704; J3490; J7030

== ENCOUNTER 2022-10-05 10:00 | Outpatient (CLI) | payer MEDICARE, SELFPAY ==
--- NOTE | 2022-10-05 10:09 | CT_ITS ---
WS: [id number] CT NECK TECHNIQUE: Contrast-enhanced CT of the neck with coronal and sagittal reformatted images. CLINICAL INFORMATION: MASS OF LEFT SUBMANDIBULAR REGION COMPARISON: CT neck 2013 DLP: 263.[address] scans at [facility] use at least one of these dose optimization techniques: automated e xposure control; mA and/or kV adjustment per patient size (includes targeted exams where dose is matc hed to clinical indication); or iterative reconstruction. FINDINGS: Palpable marker overlying the LEFT submandibular gland. Underlying LEFT submandibular gland is normal in appearance with normal enhancement. Small submandibular lymph node measuring 7 x 12 mm transverse by craniocaudal. No evidence of submandibular mass or lesion in this location. Parotid glands are no rmal. Mastoid air cells well aerated. Mild mucosal thickening in the partially visualized paranasal sinuses . Normal posterior nasopharynx. Normal parapharyngeal fat. No evidence of supraglottic or glottic mas s. Normal piriform sinuses. Normal subglottic airway. Slightly heterogeneous thyroid gland with small nodules. Carotid bulb calcification. Lung apices are well aerated. Moderate spondylitic changes cervical spine . Disc osteophyte complexes more prominent at C5-C6 and C6-C7. Mild to moderate central canal stenosi s C6-C7. CT/CT neck w con* [id number] IMPRESSION: 1. In the area of palpable concern, normal underlying submandibular gland. Sli ghtly prominent normal appearing submandibular lymph node measuring 7 x 12 mm. 2. Salivary glands otherwise normal in appearance. 3. No evidence of supraglottic or glottic mass. 4. No cervical lymphadenopathy. 5. Slightly heterogeneous thyroid gland with small nodules. 6. Mild to moderate central canal stenosis C6-C7 with disc osteophyte complex.
[2022-10-05] MEDS: iohexol 350 mg/mL 500 mL Btl (per mL) IV (10:31)
== END 2022-10-05 10:01 | disposition home or self-care (01) ==
LOC: RAD 10:05
PROVIDERS: PCP Family Medicine; Visit Provider Family Medicine
DX: R22.0 Localized swelling, mass and lump, head (principal); M48.02 Spinal stenosis, cervical region; M25.78 Osteophyte, vertebrae; E04.2 Nontoxic multinodular goiter
CPT/HCPCS: 70491; Q9967

== ENCOUNTER 2022-12-01 13:15 | Inpatient (IN) | payer MEDICARE, SELFPAY ==
[2022-12-01] VITALS (11 sets, daily range): BP systolic 126–173; BP diastolic 67–129; PULSE 70–91; RESP 15–18; TEMP 36.8–37.1; O2SAT 94–97
--- NOTE | 2022-12-01 13:32 | ED_ITS ---
Documented by User: SONYA Rangel 12/01/22 16:17 HPI - Fall General: Chief Complaint: Fall Stated Complaint: Fall/ BI leg pain Time Seen by Provider: 12/01/22 13:17 Source: patient and EMS Mode of arrival: EMS Limitations: no limitations History of Present Illness: Patient is a 52-year-old female presents to ED today via EMS for evaluation of bilateral lower extremity pains following a fall. Patient states over the past several weeks she has been dealing with IT band syndrome and pain to her left lateral collateral ligament. She states today she accidentally slipped and fell and injured both lower extremities. Patient states she is not able to ambulate or put weight on either extremity at this time. She denies striking her head or LOC. She has no complaints of neck or back pain. States she took two oxycodone and a THC gummie prior to arrival. MD complaint: fall Onset (ago): hour(s) Fall from: standing Fall witnessed: yes, by family Place fall occurred: home Loss of consciousness: None Prolonged down time: no Symptoms prior to fall: none Context: tripped/slipped Location of injury - extremities: Left: knee and Right: lower leg, ankle and foot Associated symptoms-after fall: Reports no associated symptoms; Denies headache(s) or neck pain Review of Systems Musc: Reports: extremity pain, joint pain and limited range of motion; Denies: neck pain, back pain or extremity swelling Neuro: Denies: headache(s), numbness in extremities, weakness in extremities or sensory changes PFS ED PFSH: Medical History Acute joint pain Arm numbness Asthma Cervical disc disorder, unspecified, unspecified cervical region Chronic low back pain Chronic pain of left upper extremity Disc disorder Encounter for long-term opiate analgesic use Fibromyalgia muscle pain Hydrosalpinx Diagnosed in 2013. Has been followed by [facility] in [place]. Hyperlipidemia Hypertension Morbid (severe) obesity due to excess calories Neoplasm related pain (acute) (chronic) Opioid contract exists Syncope and collapse Type 2 diabetes mellitus without complications Surgical History H/O elbow surgery (~1988) Left H/O mastectomy (07/10/12) Subtotal left mastectomy.Dx: Invasive ductal carcinoma of the left breast H/O tubal ligation (~1987) History of appendectomy (~1992) History of cholecystectomy (~2000) [place] node 2012 with recurrence 2016 Status post left breast lumpectomy (~2011) Family History Father Hypertension Mother CAD (coronary artery disease) Grandmother Thyroid disease paternal Social History Substance/Drug Use: never Physical Exam Const: COMMON NORMALS: patient oriented x3 and alert EXAM LIMITATIONS: physical limitations (extremities are difficult to exam secondary to body hab itus) NUTRITIONAL APPEARANCE: obese morbidly obese (BMI is 58.0) ORIENTATION/CONSCIOUSNESS: Yes awake, Yes oriented to person, Yes oriented to place and Yes oriented to time HENMT: COMMON NORMALS: normocephalic and atraumatic HEAD & SCALP: normal to inspection, normocephalic and atraumatic Neck/C-Spine: COMMON NORMALS: full ROM CERVICAL SPINE: Yes cervical ROM normal, No pain with cervical ROM, No Cervical spine tenderness and No step off deformity Chest: COMMONS NORMALS: normal inspection of the chest and normal palpation of entire chest wall Back/Pelvis: COMMON NORMALS: thoracic and lumbar spine normal to inspection, no thoracic nor lumbar tenderness and thoraco-lumbar ROM normal Extremity: COMMON NORMALS: capillary refill normal GENERAL: Yes normal exam except as noted RIGHT LOWER EXTREMITY: Yes lower leg Right lower leg: Yes palpation (TTP R lower leg) and Yes neurovascular exam (normal), Yes foot & digits (swelling and tenderness throughout ankle joint) Right ankle: Yes ROM (significantly decreased secondary to pain) and Yes neurovascular exam (normal) and Yes foot & digits LEFT LOWER EXTREMITY: Yes knee joint (TTP; swelling unable to be assessed due to body habitus ) Left knee: Yes neurovascular exam (normal) Neuro: CINTIA COMA SCALE: document GCS findings Cintia coma scale eye opening: Spontaneous Cintia coma scale verbal response: Orientated [place] coma scale motor response: Obey commands [place] coma scale total score: 15 COMMON NORMALS: patient oriented x3, moves all extremities, no focal motor deficits and no sensory deficits noted SENSORIUM/ORIENTATION: Yes alert, Yes oriented to person, Yes oriented to place and Yes oriented to time Skin: TRAUMA: no lacerations or abrasions Course Consultations: Consultation #1: Dr. Pate-accepts admission Consultation #2: Dr. Matthews-recommends CAM boot Vital Signs: Vital signs: Vital Signs Temperature 97.0 F L 12/04/22 16:00 Pulse Rate 86 12/04/22 16:00 Respiratory Rate 17 12/04/22 19:16 Blood Pressure 141/77 12/04/22 16:00 Pulse Oximetry 96 12/04/22 16:00 Oxygen Delivery Me thod Room Air 12/04/22 16:00 Oxygen Flow Rate 2 12/03/22 08:42 MDM - Fall Medical Decision Making Patient is a morbidly obese 52-year-old female with an extensive medical pain history here following a fall. She has been dealing with left lower extremity pain causing trouble with ambulation at baseline. During her slip and fall today she injured the left knee and in addition sustained a right distal fibular fracture. Patient states she is not able to bear weight on either extremity. She is very poorly deconditioned. She is adamant that she is not going to be able to care for herself at home even with bariatric wheelchair/bedside commode. Patient is going to require hospital mission for placement to a nursing home facility. I spoke to Dr. Pate who will admit patient. Dr. David is aware of patient and will place admission orders. I spoke to Dr. Matthews in regards to fracture who recommended CAM boot. Lab Data 12/04/22 05:35 12/04/22 05:35 Radiology Impressions Ankle X-Ray 12/01/22 13:41 IMPRESSION: Nondisplaced oblique fracture distal fibula or proximal lateral malleolus with soft tissue swelling. Foot X-Ray 12/01/22 13:41 IMPRESSION: No fracture or acute osseous abnormality of the foot. Knee X-Ray 12/01/22 13:41 IMPRESSION: 1. Mild degenerative change. 2. No fracture or dislocation. Tibia/Fibula X-Ray 12/01/22 13:41 IMPRESSION: Nondisplaced oblique fracture distal fibula at the ankle. No other fracture seen. Knee MRI 12/02/22 14:13 IMPRESSION: 1. Markedly limited examination due to artifact produced by the patient's body habitus. 2. Pronounced bone marrow edema in the lateral femoral condyle, likely secondary to contusion. Underlying nondisplaced fracture can not be entirely excluded. 3. Chronic low-grade medial collateral ligament injury/sprain. 4. Mild tricompartmental osteoarthrosis. 5. Massive effusion. Laboratory Results WBC 13.2 10^3/uL (4.0-10.0) H 12/01/22 16:09 RBC 4.37 10^6/uL (4.1-5.3) 12/01/22 16:09 Hgb 13.3 g/dL (11.5-15.3) 12/01/22 16:09 Hct 41.2 % (37.0-47.0) 12/01/22 16:09 MCV 94.3 fl (81-99) 12/01/22 16:09 MCH 30.4 pg (28.0-34.0) 12/01/22 16:09 MCHC 32.3 g/dL (30.0-36.0) 12/01/22 16:09 RDW 13.0 % (12.1-15.1) 12/01/22 16:09 Plt Count 246 10^3/cmm (130-400) 12/01/22 16:09 MPV 10.1 fL (7.4-10.4) 12/01/22 16:09 Neut % (Auto) 85.1 % 12/01/22 16:09 Lymph % (Auto) 8.4 % 12/01/22 16:09 [place] % (Auto) 4.5 % 12/01/22 16:09 Eos % (Auto) 1.2 % 12/01/22 16:09 Baso % (Auto) 0.3 % 12/01/22 16:09 Neut # (Auto) 11.19 10^3/uL (1.8-7.7) H 12/01/22 16:09 Lymph # (Auto) 1.1 10^3/uL (0.8-4.8) 12/01/22 16:09 [place] # (Auto) 0.6 10^3/uL (0.2-0.9) 12/01/22 16:09 Eos # (Auto) 0.2 10^3/uL (0.0-0.8) 12/01/22 16:09 Baso # (Auto) 0.0 10^3/uL (0.0-0.1) 12/01/22 16:09 Nucleated RBC % (auto) 0 % 12/01/22 16:09 Nucleated RBCs # 0.0 /100WBC 12/01/22 16:09 Sodium 135 mmol/L (136-145) L 12/01/22 16:09 Potassium 4.3 mmol/L (3.5-5.1) 12/01/22 16:09 Chloride 99 mmol/L (98-107) 12/01/22 16:09 Carbon Dioxide 24 mmol/L (22-29) 12/01/22 16:09 Anion Gap 16.3 (5-19) 12/01/22 16:09 BUN 16 mg/dL (6-20) 12/01/22 16:09 Creatinine 0.6 mg/dL (0.5-0.9) 12/01/22 16:09 GFR Calculation 104.2 mL/min (90-130) 12/01/22 16:09 Glucose 121 mg/dL (65-115) H 12/01/22 16:09 Calculated Osmolality 282 mOsm/kg (285-295) L 12/01/22 16:09 Calcium 9.7 mg/dL (8.5-10.5) 12/01/22 16:09 Total Bilirubin 0.5 mg/dL (0.15-1.2) 12/01/22 16:09 AST 31 U/L (0-32) 12/01/22 16:09 ALT 29 U/L (0-33) 12/01/22 16:09 Alkaline Phosphatase 83 U/L (35-105) 12/01/22 16:09 Total Protein 7.6 g/dL (6.6-8.7) 12/01/22 16:09 Albumin 4.8 g/dL (3.5-5.2) 12/01/22 16:09 Globulin 2.8 g/dL (1.3-4.6) 12/01/22 16:09 Discharge Plan Discharge Patient Disposition: Admitted As Inpatient Admit Provider: Jerry Pate Clinical Impression: Unable to care for self, Fracture of distal end of fibula, Left leg pain Condition: Stable Coding Level of Care Code ED Surgical Consultant for Chg Fwd Documented by User: Jc David MD 12/13/22 06:54 HPI - Fall General: Chief Complaint: Fall Stated Complaint: Fall/ BI leg pain Time Seen by Provider: 12/01/22 13:17 PFSH ED PFSH: Medical History Acute joint pain Arm numbness Asthma Cervical disc disorder, unspecified, unspecified cervical region Chronic low back pain Chronic pain of left upper extremity Disc disorder Encounter for long-term opiate analgesic use Fibromyalgia muscle pain Hydrosalpinx Diagnosed in 2012. Has been followed by [facility] in [place]. Hyperlipidemia Hypertension Morbid (severe) obesity due to excess calories Neoplasm related pain (acute) (chronic) Opioid contract exists Syncope and collapse Type 2 diabetes mellitus without complications Surgical History H/O elbow surgery (~1988) Left H/O mastectomy (07/10/12) Subtotal left mastectomy.Dx: Invasive ductal carcinoma of the left breast H/O tubal ligation (~1987) History of appendectomy (~1992) History of cholecystectomy (~2000) [place] node 2012 with recurrence 2016 Status post left breast lumpectomy (~2011) Family History Father Hypertension Mother CAD (coronary artery disease) Grandmother Thyroid disease paternal Social History Substance/Drug Use: never Physical Exam Neuro: CINTIA COMA SCALE: document GCS findings [place] coma scale total score: 15 Course Vital Signs: Vital signs: Vital Signs Temperature 97.0 F L 12/04/22 16:00 Pulse Rate 86 12/04/22 16:00 Respiratory Rate 17 12/04/22 19:16 Blood Pressure 141/77 12/04/22 16:00 Pulse Oximetry 96 12/04/22 16:00 Oxygen Delivery Me thod Room Air 12/04/22 16:00 Oxygen Flow Rate 2 12/03/22 08:42 MDM - Fall Medical Decision Making Patient is a morbidly obese 52-year-old female with an extensive medical pain history here following a fall. She has been dealing with left lower extremity pain causing trouble with ambulation at baseline. During her slip and fall today she injured the left knee and in addition sustained a right distal fibular fracture. Patient states she is not able to bear weight on either extremity. She is very poorly deconditioned. She is adamant that she is not going to be able to care for herself at home even with bariatric wheelchair/bedside commode. Patient is going to require hospital mission for placement to a nursing home facility. I spoke to Dr. Pate who will admit patient. Dr. David is aware of patient and will place admission orders. I spoke to Dr. Matthews in regards to fracture who recommended CAM boot. I discussed this case with SONYA Rangel. Jc David MD Emergency Medicine Lab Data 12/04/22 05:35 12/04/22 05:35 Radiology Impressions Ankle X-Ray 12/01/22 13:41 IMPRESSION: Nondisplaced oblique fracture distal fibula or proximal lateral malleolus with soft tissue swelling. Foot X-Ray 12/01/22 13:41 IMPRESSION: No fracture or acute osseous abnormality of the foot. Knee X-Ray 12/01/22 13:41 IMPRESSION: 1. Mild degenerative change. 2. No fracture or dislocation. Tibia/Fibula X-Ray 12/01/22 13:41 IMPRESSION: Nondisplaced oblique fracture distal fibula at the ankle. No other fracture seen. Knee MRI 12/02/22 14:13 IMPRESSION: 1. Markedly limited examination due to artifact produced by the patient's body habitus. 2. Pronounced bone marrow edema in the lateral femoral condyle, likely secondary to contusion. Underlying nondisplaced fracture can not be entirely excluded. 3. Chronic low-grade medial collateral ligament injury/sprain. 4. Mild tricompartmental osteoarthrosis. 5. Massive effusion. Laboratory Results WBC 13.2 10^3/uL (4.0-10.0) H 12/01/22 16:09 RBC 4.37 10^6/uL (4.1-5.3) 12/01/22 16:09 Hgb 13.3 g/dL (11.5-15.3) 12/01/22 16:09 Hct 41.2 % (37.0-47.0) 12/01/22 16:09 MCV 94.3 fl (81-99) 12/01/22 16:09 MCH 30.4 pg (28.0-34.0) 12/01/22 16:09 MCHC 32.3 g/dL (30.0-36.0) 12/01/22 16:09 RDW 13.0 % (12.1-15.1) 12/01/22 16:09 Plt Count 246 10^3/cmm (130-400) 12/01/22 16:09 MPV 10.1 fL (7.4-10.4) 12/01/22 16:09 Neut % (Auto) 85.1 % 12/01/22 16:09 Lymph % (Auto) 8.4 % 12/01/22 16:09 [place] % (Auto) 4.5 % 12/01/22 16:09 Eos % (Auto) 1.2 % 12/01/22 16:09 Baso % (Auto) 0.3 % 12/01/22 16:09 Neut # (Auto) 11.19 10^3/uL (1.8-7.7) H 12/01/22 16:09 Lymph # (Auto) 1.1 10^3/uL (0.8-4.8) 12/01/22 16:09 [place] # (Auto) 0.6 10^3/uL (0.2-0.9) 12/01/22 16:09 Eos # (Auto) 0.2 10^3/uL (0.0-0.8) 12/01/22 16:09 Baso # (Auto) 0.0 10^3/uL (0.0-0.1) 12/01/22 16:09 Nucleated RBC % (auto) 0 % 12/01/22 16:09 Nucleated RBCs # 0.0 /100WBC 12/01/22 16:09 Sodium 135 mmol/L (136-145) L 12/01/22 16:09 Potassium 4.3 mmol/L (3.5-5.1) 12/01/22 16:09 Chloride 99 mmol/L (98-107) 12/01/22 16:09 Carbon Dioxide 24 mmol/L (22-29) 12/01/22 16:09 Anion Gap 16.3 (5-19) 12/01/22 16:09 BUN 16 mg/dL (6-20) 12/01/22 16:09 Creatinine 0.6 mg/dL (0.5-0.9) 12/01/22 16:09 GFR Calculation 104.2 mL/min (90-130) 12/01/22 16:09 Glucose 121 mg/dL (65-115) H 12/01/22 16:09 Calculated Osmolality 282 mOsm/kg (285-295) L 12/01/22 16:09 Calcium 9.7 mg/dL (8.5-10.5) 12/01/22 16:09 Total Bilirubin 0.5 mg/dL (0.15-1.2) 12/01/22 16:09 AST 31 U/L (0-32) 12/01/22 16:09 ALT 29 U/L (0-33) 12/01/22 16:09 Alkaline Phosphatase 83 U/L (35-105) 12/01/22 16:09 Total Protein 7.6 g/dL (6.6-8.7) 12/01/22 16:09 Albumin 4.8 g/dL (3.5-5.2) 12/01/22 16:09 Globulin 2.8 g/dL (1.3-4.6) 12/01/22 16:09 Discharge Plan Discharge Patient Disposition: Admitted As Inpatient Admit Provider: Jerry Pate Clinical Impression: Unable to care for self, Fracture of distal end of fibula, Left leg pain Condition: Stable Coding Level of Care Code ED Surgical Consultant for Payton Carty
--- NOTE | 2022-12-01 13:41 | XRR_ITS ---
PROCEDURE INFORMATION: Exam: XR Right Foot Exam date and time: 12/01/2022 2:20 PM Age: 52 years old Clinical indication: Injury or trauma; Fall; Sprain or strain; Foot; Right; Additional info: Fall/injury TECHNIQUE: Imaging protocol: Radiologic exam of the right foot. Views: 3 or more views. COMPARISON: CR XR ankle RT min 3V* [id number] 12/01/2022 2:19 PM FINDINGS: Bones/joints: No fracture or dislocation is seen about the foot. Mild calcaneal spur formation is seen on the lateral view. Osseous structures show no acute abnormality. Previously noted nondisplaced oblique fracture of the proximal lateral malleolus with ankle exam is again noted. Soft tissues: No significant focal soft tissue abnormality. XR/XR foot RT min 3V* [id number] IMPRESSION: No fracture or acute osseous abnormality of the foot.
--- NOTE | 2022-12-01 13:41 | XRR_ITS ---
PROCEDURE INFORMATION: Exam: XR Right Ankle Exam date and time: 12/01/2022 2:19 PM Age: 52 years old Clinical indication: Injury or trauma; Fall; Sprain or strain; Ankle; Right; Additional info: Fall/pain. TECHNIQUE: Imaging protocol: Radiologic exam of the right ankle. Views: 3 or more views. COMPARISON: CR XR tibia fibula RT 2V [id number] 12/01/2022 2:17 PM FINDINGS: Bones/joints: A nondisplaced oblique fracture seen within the distal fibula or proximal lateral malleolus, with distal portion of the oblique fracture appearing just above the level of the tibiotalar joint level. No other fracture is seen. Ankle joint appears maintained. Mild calcaneal spur formation. Soft tissues: Soft tissue swelling is seen, particularly laterally. XR/XR ankle RT min 3V* [id number] IMPRESSION: Nondisplaced oblique fracture distal fibula or proximal lateral malleolus with soft tissue swelling.
--- NOTE | 2022-12-01 13:41 | XRR_ITS ---
PROCEDURE INFORMATION: Exam: XR Right Tibia and Fibula Exam date and time: 12/01/2022 2:17 PM Age: 52 years old Clinical indication: Injury or trauma; Fall; Blunt trauma; Lower leg; Right; Additional info: Fall/pain TECHNIQUE: Imaging protocol: Radiologic exam of the right tibia and fibula. Views: 2 views. COMPARISON: CR XR tibia fibula RT 2V [id number] 09/22/2016 8:23 AM FINDINGS: Bones/joints: A nondisplaced oblique fracture noted distal fibula at the ankle. No fracture seen otherwise about the tibia or fibula. Knee and ankle joints appear maintained. Soft tissues: No focal soft tissue abnormality. XR/XR tibia fibula RT 2V [id number] IMPRESSION: Nondisplaced oblique fracture distal fibula at the ankle. No other fracture seen.
--- NOTE | 2022-12-01 13:41 | XRR_ITS ---
PROCEDURE INFORMATION: Exam: XR Left Knee Exam date and time: 12/01/2022 2:13 PM Age: 52 years old Clinical indication: Injury or trauma; Fall; Blunt trauma; Knee; Left; Additional info: Fall/pain TECHNIQUE: Imaging protocol: Radiologic exam of the left knee. Views: 3 views. COMPARISON: NM bone scan whole body* [id number] 04/05/2018 3:11 PM FINDINGS: Bones/joints: Mild hypertrophic degenerative bony change along with mild joint space narrowing medially indicating mild degenerative change or osteoarthritis. Chronic appearing soft tissue calcification is seen adjacent to the distal medial and lateral femoral condyles, greater medially. No fracture or acute osseous abnormality. Soft tissues: No significant soft tissue suprapatellar fullness or effusion. XR/XR knee LT 3V* [id number] IMPRESSION: 1. Mild degenerative change. 2. No fracture or dislocation.
[2022-12-01 16:21] LABS: Basophils % 0.3 %; Eosinophils # 0.2 10^3/uL (0.0-0.8); Eosinophils % 1.2 %; Hematocrit 41.2 % (37.0-47.0); Hemoglobin 13.3 g/dL (11.5-15.3); Lymphocytes # 1.1 10^3/uL (0.8-4.8); Lymphocytes % 8.4 %; Mean Corpuscular HGB Conc 32.3 g/dL (30.0-36.0); Mean Corpuscular Hemoglobin 30.4 pg (28.0-34.0); Mean Corpuscular Volume 94.3 fl (81-99); Mean Platelet Volume 10.1 fL (7.4-10.4); Monocytes # 0.6 10^3/uL (0.2-0.9); Monocytes % 4.5 %; Neutrophils # 11.19 10^3/uL (1.8-7.7); Neutrophils % 85.1 %; Nucleated Red Blood Cells % 0 %; Platelet Count 246 10^3/cmm (130-400); Red Blood Count 4.37 10^6/uL (4.1-5.3); White Blood Count 13.2 10^3/uL (4.0-10.0)
[2022-12-01 16:37] LABS: Alanine Aminotransferase 29 U/L (0-33); Albumin Level 4.8 g/dL (3.5-5.2); Alkaline Phosphatase 83 U/L (35-105); Anion Gap 16.3 (5-19); Aspartate Amino Transferase 31 U/L (0-32); Blood Urea Nitrogen 16 mg/dL (6-20); Calcium 9.7 mg/dL (8.5-10.5); Carbon Dioxide 24 mmol/L (22-29); Chloride 99 mmol/L (98-107); Globulin 2.8 g/dL (1.3-4.6); Glomerular Filtration Rate 104.2 mL/min (90-130); Glucose 121 mg/dL (65-115); Osmolality Calculated 282 mOsm/kg (285-295); Potassium 4.3 mmol/L (3.5-5.1); Sodium 135 mmol/L (136-145); Total Bilirubin 0.5 mg/dL (0.15-1.2); Total Protein 7.6 g/dL (6.6-8.7)
[2022-12-01] MEDS: morphine 4 mg/mL SDV 1 mL IVP (16:50)
--- NOTE | 2022-12-01 17:36 | PM.HP ---
Providers/Chief Complaint Primary Care Provider: Luis Red MD Chief Complaint: Fall/ BI leg pain History of Present Illness Neeru Cedillo is a 52 year old female with past medical history hypertension, morbid obesity, was brought in today from home after she experienced a mechanical fall, she slipped on water at home, post fall she started experiencing severe pain, in her right lower extremity, for which she was brought in. X-ray tibia-fibula right has shown:Nondisplaced oblique fracture distal fibula at the ankle: It was discussed with the orthopedic physician by the ER, nonsurgical conservative medical management has been, suggested, since the patient is unable to take care of of herself at home, due to severe pain, and morbid obesity, she is being admitted for proper placement. Review of Systems General: Reports: 10 or more systems reviewed and unremarkable except in HPI and below Const: Denies: fever(s), chills, body aches, change in appetite or diaphoresis Card: Denies: palpitations, edema, swelling of feet/ankles, dyspnea on exertion, orthopnea or leg pain with exertion Resp: Denies: dyspnea, productive cough, wheezing or pain on inspiration GI: Denies: abdominal pain, nausea, vomiting, diarrhea or constipation : Denies: flank pain Musc: Reports: extremity pain; Denies: back pain Neuro: Denies: headache(s) or confusion Medications/Allergies Home Medications Medication Instructions Recorded Confirmed Last Taken Type albuterol sulfate 90 mcg/actuation 1 inh inhalation DAILY PRN 07/23/19 12/01/22 02/21/22 History aerosol inhaler (ProAir HFA) Shortness Of Breath diltiazem HCl 120 mg 360 mg PO DAILY 07/23/19 12/01/22 11/30/22 History capsule,extended release 24 hr (Cartia XT) insulin lispro 100 unit/mL 1 sliding scale dose SUBCUT 07/23/19 12/01/22 02/21/22 History subcutaneous cartridge (Humalog .COMPLEX U-100 Insulin) lorazepam 1 mg tablet (Ativan) 1 mg PO TID PRN Anxiety 07/23/19 12/01/22 02/21/22 History magnesium oxide 800 mg PO BID 07/23/19 12/01/22 11/30/22 History metformin 500 mg tablet 1,000 mg PO QPM 07/23/19 12/01/2211/30/23 History potassium chloride 10 mEq 10 meq PO DAILY PRN UNKNOWN 07/23/19 12/01/22 02/21/22 History capsule,extended release pseudoephedrine HCl 30 mg tablet 30 mg PO DAILY PRN UNKNOWN 07/23/19 12/01/22 02/21/22 History cholecalciferol (vitamin D3) 1,250 50,000 unit PO DAILY 07/24/19 12/01/22 11/30/22 History mcg (50,000 unit) capsule promethazine 25 mg tablet 25 mg PO Q4H PRN nausea and 12/01/19 12/01/22 02/21/22 Rx vomiting #20 tabs hydrocodone 10 mg-acetaminophen 2 tab PO TID PRN pain 30 days #180 07/23/21 12/01/22 02/22/22 Rx 325 mg tablet tabs oxycodone 10 mg tablet 10 mg PO BID PRN pain 30 days #60 07/23/21 12/01/22 12/01/22 Rx tabs tizanidine 4 mg tablet 4 mg PO TID PRN muscle spasticity 07/23/21 12/01/22 02/21/22 Rx 30 days #90 tabs ergocalciferol (vitamin D2) 1,000 3,000 unit PO .WEEKLY 09/17/21 12/01/22 11/25/22 History unit capsule furosemide 20 mg tablet (Lasix) 40 mg PO PRN PRN Edema 09/17/21 12/01/22 02/21/22 History enalapril maleate 5 mg tablet 5 mg PO DAILY 10/28/21 12/01/22 11/30/22 History pantoprazole 40 mg tablet,delayed 40 mg PO DAILY #90 tabs 02/22/22 12/01/22 11/30/22 Rx release sacubitril 24 mg-valsartan 26 mg 1 tab PO BID 12/01/22 12/01/22 11/30/22 History tablet (Entresto) semaglutide 0.25 mg or 0.5 mg (2 0.5 mg SUBCUT Q7D 12/01/22 12/01/22 11/28/22 History mg/3 mL) subcutaneous pen injector (Ozempic) Allergies Allergy/AdvReac Type Severity Reaction Status Date / Time clarithromycin [From Biaxin] Allergy rash yeast Verified 12/01/22 13:29 infection clonazepam Allergy increas Verified 12/01/22 13:29 heart rate and hypertension doxycycline Allergy hypertensio Verified 12/01/22 13:29 n droperidol Allergy hypertensio Verified 12/01/22 13:29 n erythromycin base Allergy hives and Verified 12/01/22 13:29 anaphylaxis escitalopram [From Lexapro] Allergy ADR-Hyperte Verified 12/01/22 13:29 nsion hydrocodone Allergy HEART RACE Verified 12/01/22 13:29 [From Hysingla ER] hydromorphone [Dilaudid] Allergy hypertension, Verified 12/01/22 13:29 tachycardia latex Allergy ADR-Abdominal Verified 12/01/22 13:29 Pain meperidine [Demerol] Allergy hives Verified 12/01/22 13:29 metoprolol Allergy ADR-Hyperte Verified 12/01/22 13:29 nsion ondansetron [From Zofran] Allergy abnormal Verified 12/01/22 13:29 EKG penicillin G Allergy as a Verified 12/01/22 13:29 child, swelling prochlorperazine Allergy hypotension Verified 12/01/22 13:29 [From Compazine] rivaroxaban [From Xarelto] Allergy hypertension, Verified 12/01/22 13:29 tachycardia tramadol Allergy tachycardia Verified 12/01/22 13:29 verapamil Allergy hypotension Verified 12/01/22 13:29 PFSH Acute PFSH: Medical History Acute joint pain Arm numbness Asthma Cervical disc disorder, unspecified, unspecified cervical region Chronic low back pain Chronic pain of left upper extremity Disc disorder Encounter for long-term opiate analgesic use Fibromyalgia muscle pain Hydrosalpinx Diagnosed in 2013. Has been followed by [facility] [place]. Hyperlipidemia Hypertension Morbid (severe) obesity due to excess calories Neoplasm related pain (acute) (chronic) Opioid contract exists Syncope and collapse Type 2 diabetes mellitus without complications Surgical History H/O elbow surgery (~1988) Left H/O mastectomy (07/10/12) Subtotal left mastectomy.Dx: Invasive ductal carcinoma of the left breast H/O tubal ligation (~1987) History of appendectomy (~1992) History of cholecystectomy (~2000) [place] node 2012 with recurrence 2016 Status post left breast lumpectomy (~2011) Family History Father Hypertension Mother CAD (coronary artery disease) Grandmother Thyroid disease paternal Social History Substance/Drug Use: never Vitals/I&O/Wt Last Vital Signs Temp 98.2 F 12/01/22 13:23 Pulse 72 12/01/22 16:35 Resp 18 12/01/22 16:50 BP 173/129 12/01/22 16:26 Pulse Ox 94 12/01/22 16:50 O2 Del Method Room Air 12/01/22 16:35 Weight last 48 hrs Weight 153.314 kg Physical Exam Const: COMMON NORMALS: patient oriented x3 HENMT: COMMON NORMALS: normocephalic and atraumatic Resp: COMMON NORMALS: clear to auscultation bilaterally AUSCULTATION: clear to auscultation bilaterally Cardio: COMMON NORMALS: regular rate, regular rhythm, S1 normal heart sound present, S2 normal heart sound present, No gallops present (Cardio), No murmurs present (Cardio), No rub (Cardio) and Peripheral pulses 2+ throughout RATE: regular rate RHYTHM: regular rhythm HEART SOUNDS: S1 normal heart sound present and S2 normal heart sound present PERIPHERAL PULSES: Peripheral pulses 2+ throughout GI: COMMON NORMALS: Normal to inspection, nondistended, normoactive bowel sounds present, Soft to palpation, non-tender, No hepatosplenomegaly present and no masses AUSCULTATION: Yes normoactive bowel sounds PALPATION: Yes Soft to palpation and Yes No hepatosplenomegaly present RECTAL EXAM: deferred Extremity: COMMON NORMALS: no clubbing, cyanosis or edema and no pedal edema Neuro: COMMON NORMALS: patient oriented x3 Data 12/01/22 16:09 12/01/22 16:09 A&P Assessment and plan (1) Unable to care for self: (2) Fracture of distal end of fibula: Qualifiers: Encounter type: initial encounter Fracture morphology: unspecified fracture morphology Fracture type: closed Laterality: right Qualified Code(s): S82.831A - Other fracture of upper and lower end of right fibula, initial encounter for closed fracture (3) Fall: (4) Hypertension: (5) Morbid (severe) obesity due to excess calories: Plan 52 year old female with past medical history hypertension, diabetes,morbid obesity, was brought in today from home after she experienced a mechanical fall, she slipped on water at home, post fall she started experiencing severe pain, in her right lower extremity, for which she was brought in. Assessment: Nondisplaced oblique fracture distal fibula: X-ray tibia-fibula right has shown:Nondisplaced oblique fracture distal fibula at the ankle: It was discussed with the orthopedic physician by the ER, nonsurgical conservative management CAM Boot has been, suggested, since the patient is unable to take care of of herself at home, due to severe pain, even with bariatric wheelchair/bedside commode. she is being admitted for proper placement. Pain control Bowel regimen History of hypertension: Currently patient is on p.o. Cardizem, as well as Entresto, enalapril. History of diabetes: On SSI, monitor fingerstick glucose CODE STATUS: Full code DVT prophylaxis on subcu heparin Attestations Medical Necessity Statement*: Patient is to be in hospital for management of, fibular fracture, need for safe placement. Coding Level of Care Code Acute Code for Chg Fwd Diagnoses Unable to care for self Z78.9 Fracture of distal end of fibula S82.831A Encounter type: initial encounter Fracture morphology: unspecified fracture morphology Fracture type: closed Laterality: right Fall W19.XXXA Hypertension I10 Morbid (severe) obesity due to excess calories E66.01
[2022-12-01] MEDS: heparin 5,000 unit/mL INJ 1 mL 5000 UNIT SUBCUT (18:50)
[2022-12-01] MEDS: oxyCODONE 10 mg ER (12 HR) Tablet PO (20:51)
[2022-12-01] MEDS: sacubitril/valsartan 24-26 mg Tablet 1 EACH PO (20:51)
[2022-12-01 21:19] LABS: Glucose Point of Care 103 mg/dL (70-110)
[2022-12-01] MEDS: dilTIAZem ER (24HR) 180 mg Capsule 360 MG PO (22:15)
[2022-12-01] MEDS: HYDROcodone-acetaminophen 10-325 mg Tablet 2 TAB PO (22:40)
[2022-12-02] VITALS (13 sets, daily range): BP systolic 111–163; BP diastolic 54–84; PULSE 68–87; RESP 12–20; TEMP 36.4–37.1; O2SAT 94–97
[2022-12-02] MEDS: morphine 4 mg/mL SDV 1 mL 2 MG IVP ×5 (00:18→20:25)
[2022-12-02] MEDS: heparin 5,000 unit/mL INJ 1 mL 5000 UNIT SUBCUT ×3 (01:16→18:51)
[2022-12-02 05:01] LABS: Basophils % 0.4 %; Eosinophils # 0.5 10^3/uL (0.0-0.8); Hematocrit 38.5 % (37.0-47.0); Hemoglobin 12.6 g/dL (11.5-15.3); Lymphocytes # 1.9 10^3/uL (0.8-4.8); Lymphocytes % 19.4 %; Mean Corpuscular HGB Conc 32.7 g/dL (30.0-36.0); Mean Corpuscular Hemoglobin 31.5 pg (28.0-34.0); Mean Corpuscular Volume 96.3 fl (81-99); Mean Platelet Volume 10.2 fL (7.4-10.4); Monocytes # 0.5 10^3/uL (0.2-0.9); Monocytes % 5.4 %; Neutrophils # 6.71 10^3/uL (1.8-7.7); Neutrophils % 69.2 %; Nucleated Red Blood Cells % 0 %; Platelet Count 244 10^3/cmm (130-400); Red Cell Distribution Width 13.1 % (12.1-15.1); White Blood Count 9.7 10^3/uL (4.0-10.0)
[2022-12-02 05:20] LABS: Anion Gap 14.1 (5-19); Blood Urea Nitrogen 11 mg/dL (6-20); Calcium 9.2 mg/dL (8.5-10.5); Carbon Dioxide 25 mmol/L (22-29); Chloride 100 mmol/L (98-107); Glomerular Filtration Rate 104.2 mL/min (90-130); Glucose 114 mg/dL (65-115); Osmolality Calculated 280 mOsm/kg (285-295); Potassium 4.1 mmol/L (3.5-5.1); Sodium 135 mmol/L (136-145)
[2022-12-02 06:18] LABS: Glucose Point of Care 127 mg/dL (70-110)
[2022-12-02] MEDS: HYDROcodone-acetaminophen 10-325 mg Tablet 2 TAB PO ×2 (07:37→16:24)
[2022-12-02] MEDS: pantoprazole DR 40 mg Tablet PO (08:17)
[2022-12-02] MEDS: cyclobenzaprine 10 mg Tablet 5 MG PO ×2 (08:17→16:25)
[2022-12-02] MEDS: oxyCODONE 10 mg ER (12 HR) Tablet PO ×2 (10:21→22:06)
--- NOTE | 2022-12-02 10:48 | PC.CHAP ---
Pastoral Care Encounter/Spiritual Assessment Type of Contact [] Declined polysomnographer visit [] Patient/Family/Request visit [] Outpatient visit [] Follow-up visit [] Physician referral [] Code/Alert [x] Routine visit [] Staff referral [] Actively dying [] Patient sleeping [] Family support [] [] Out of room [] Palliative care [] [x] Receiving care in room [] Pre-surgical visit [] Trauma [] Long length of stay [] ICU visit [] Other: Relational/Emotional Strength [x] Patient feels connected with others/family/visitors/staff [] Distress [] Loneliness/isolation [] Abandonment Spirituality of Patient [x] Person of Radha [] Attends Sabianism of their Radha [x] Believes in Prayer [] Reads Bible or Judaism materials [] There are Spiritual issues to be addressed Assurance Analyst Interventions [x] Prayer [x] Active listening [x] Non-anxious presence [x] Spiritual/emotional support [] Crisis/trauma care [x] Spiritual counseling [] Bereavement support [] Provided bereavement packet [] Provided Bible/devotional materials [] Provided toy/stuffed animal, coloring book to patient or family member [] Provided Communion [] Anointing/[place] [] Salvation [x] Completed spiritual assessment [] Other: Impact on Illness or Injury [] Angry [] Fearful [x] Anxious [] Often cries [] Exhaustion [] Unable to work [] Unable to attend holiness [] Unable to walk/stand [] Unable to read [] Unable to drive [] Unable to eat/drink [] Unable to sleep [] Unable to be with family [] Patient intubated [] Other: Summary not able to communicate about her health negative waiting doctor well go home at some point Time spent with patient 10 mins
[2022-12-02 11:01] LABS: Glucose Point of Care 166 mg/dL (70-110)
[2022-12-02] MEDS: insulin lispro 100 unit/1 mL SUBCUT (12:33)
[2022-12-02] MEDS: sacubitril/valsartan 24-26 mg Tablet 1 EACH PO (14:07)
--- NOTE | 2022-12-02 14:13 | MRR_ITS ---
PROCEDURE INFORMATION: Exam: MR Left Lower Extremity Joint Without Contrast, Knee Exam date and time: 12/02/2022 5:17 PM Age: 52 years old Clinical indication: Pain and injury or trauma; Fall; Swelling (edema); Knee; Left; Additional info: Left knee post fall TECHNIQUE: Imaging protocol: Magnetic resonance imaging of the left lower extremity joint without contrast. Exam focused on the knee. COMPARISON: CR XR knee LT 3V* [id number] 12/01/2022 2:13 PM FINDINGS: Examination is markedly limited due to artifact produced by the patient's body habitus. The anterior and posterior cruciate ligaments are intact. There is evidence of remote low-grade medial collateral ligament injury/sprain. The lateral collateral complex is normal in appearance. There is mild fraying along the free edges of the meniscal bodies. No definite acute meniscal tear is identified. The extensor mechanism is intact. There is no evidence of acute fracture or dislocation. Alignment is anatomic. There is pronounced bone marrow edema in the lateral femoral condyle, likely secondary to contusion. There is mild tricompartmental osteoarthrosis. There is a massive suprapatellar effusion. MR/MR knee LT wo con* [id number] IMPRESSION: 1. Markedly limited examination due to artifact produced by the patient's body habitus. 2. Pronounced bone marrow edema in the lateral femoral condyle, likely secondary to contusion. Underlying nondisplaced fracture can not be entirely excluded. 3. Chronic low-grade medial collateral ligament injury/sprain. 4. Mild tricompartmental osteoarthrosis. 5. Massive effusion.
[2022-12-02 16:22] LABS: Glucose Point of Care 121 mg/dL (70-110)
--- NOTE | 2022-12-02 17:41 | P.PN_ITS ---
Subjective Subjective: Patient was seen and examined this morning she was complaining of left knee pain. Medications: Medication Review Details: Generic Name Dose Route Start Last Admin Trade Name Freq PRN Reason Stop Dose Admin Hydrocodone Bitart /Acetaminophen 2 tab 12/01/22 19:43 12/02/22 16:24 Hydrocodone-Acet aminophen 10-325 M g Tablet PO 2 tab TID PRN Administration pain Cyclobenzaprine HC l 5 mg 12/02/22 07:59 12/02/22 16:25 Cyclobenzaprine 10 Mg Tablet PO 5 mg TID PRN Administration MUSCLE SPASMS Diltiazem HCl 360 mg 12/01/22 21:00 12/01/22 22:15 Diltiazem Er (24 hr) 180 Mg Capsule PO 360 mg BEDTIME PHILIPPE Administration Heparin Sodium (Po rcine) 5,000 unit 12/01/22 18:00 12/02/22 09:25 Heparin 5,000 Un it/Ml Inj 1 Ml SUBCUT 5,000 unit Q8H PHILIPPE Administration Insulin Human Lisp ro 0 unit 12/01/22 18:00 12/02/22 16:19 Insulin Lispro 1 00 Unit/1 Ml SUBCUT Not Given WM&BEDTIME PHILIPPE Protocol Morphine Sulfate 2 mg 12/01/22 17:27 12/02/22 14:06 Morphine 4 Mg/Ml Sdv 1 Ml IVP 2 mg Q4H PRN Administration SEVERE PAIN Oxycodone HCl 10 mg 12/01/22 19:49 12/02/22 10:21 Oxycodone 10 Mg Er (12 Hr) Tablet PO 10 mg BID PRN Administration pain Pantoprazole Sodiu m 40 mg 12/02/22 09:00 12/02/22 08:[address] 40 Mg Tablet PO 40 mg DAILY PHILIPPE Administration Sacubitril/Valsart an 1 each 12/01/22 21:00 12/02/22 14:07 Sacubitril/Valsa rtan 24-26 Mg Tabl et PO 1 each BID@0900,2100 PHILIPPE Administration Vitals/I&O/Wt Last Vital Signs Temp 98.3 F 12/02/22 16:00 Pulse 85 12/02/22 16:00 Resp 16 12/02/22 16:00 BP 141/84 12/02/22 16:00 Pulse Ox 95 12/02/22 16:00 O2 Del Method Room Air 12/02/22 16:00 O2 Flow Rate 2 12/01/22 23:56 12/02/22 12/02/22 12/02/22 06:59 14:59 22:59 Intake Total 360 / 360 Output Total 300 / 300 Balance 60 / 60 Weight last 48 hrs Weight 154.357 kg Weight 153.314 kg Physical Exam Const: COMMON NORMALS: patient oriented x3 HENMT: COMMON NORMALS: normocephalic and atraumatic HEAD & SCALP: normocephalic and atraumatic Resp: COMMON NORMALS: clear to auscultation bilaterally AUSCULTATION: clear to auscultation bilaterally Cardio: COMMON NORMALS: regular rate, regular rhythm, S1 normal heart sound present, S2 normal heart sound present, No gallops present (Cardio), No murmurs present (Cardio), No rub (Cardio) and Peripheral pulses 2+ throughout RATE: regular rate RHYTHM: regular rhythm HEART SOUNDS: S1 normal heart sound present and S2 normal heart sound present PERIPHERAL PULSES: Peripheral pulses 2+ throughout GI: COMMON NORMALS: Normal to inspection, nondistended, normoactive bowel sounds present, Soft to palpation, non-tender, No hepatosplenomegaly present and no masses AUSCULTATION: Yes normoactive bowel sounds PALPATION: Yes Soft to palpation and Yes No hepatosplenomegaly present RECTAL EXAM: deferred Extremity: COMMON NORMALS: no clubbing, cyanosis or edema and no pedal edema Neuro: COMMON NORMALS: patient oriented x3 Data 12/02/22 04:51 12/02/22 04:51 A&P Assessment and plan (1) Unable to care for self: (2) Fracture of distal end of fibula: Qualifiers: Encounter type: initial encounter Fracture morphology: unspecified fracture morphology Fracture type: closed Laterality: right Qualified Code(s): S82.831A - Other fracture of upper and lower end of right fibula, i nitial encounter for closed fracture (3) Fall: (4) Hypertension: (5) Morbid (severe) obesity due to excess calories: Plan 52 year old female with past medical history hypertension, diabetes,morbid obesity, was brought in today from home after she experienced a mechanical fall, she slipped on water at home, post fall she started experiencing severe pain, in her right lower extremity, for which she was brought in. Assessment: Nondisplaced oblique fracture distal fibula: X-ray tibia-fibula right has shown:Nondisplaced oblique fracture distal fibula at the ankle: It was discussed with the orthopedic physician by the ER, nonsurgical conservative management CAM Boot has been, suggested, since the patient is unable to take care of of herself at home, due to severe pain, even with bariatric wheelchair/bedside commode. she is being admitted for proper placement. Pain control Bowel regimen Left knee pain: Follow-up MRI of left knee. History of hypertension: Currently patient is on p.o. Cardizem, as well as Entresto, enalapril. History of diabetes: On SSI, monitor fingerstick glucose CODE STATUS: Full code DVT prophylaxis on subcu heparin Attestations Medical Necessity Statement*: Awaiting safe discharge. Coding Level of Care Code Acute Code for Chg Fwd Diagnoses Unable to care for self Z78.9 Fracture of distal end of fibula S82.831A Encounter type: initial encounter Fracture morphology: unspecified fracture morphology Fracture type: closed Laterality: right Fall W19.XXXA Hypertension I10 Morbid (severe) obesity due to excess calories E66.01
[2022-12-02 21:55] LABS: Glucose Point of Care 122 mg/dL (70-110)
[2022-12-02] MEDS: dilTIAZem ER (24HR) 180 mg Capsule 360 MG PO (22:01)
[2022-12-03] VITALS (14 sets, daily range): BP systolic 122–142; BP diastolic 61–82; PULSE 71–85; RESP 14–18; TEMP 36.4–37.3; O2SAT 92–99
[2022-12-03] MEDS: cyclobenzaprine 10 mg Tablet 5 MG PO ×3 (00:40→17:43)
[2022-12-03] MEDS: heparin 5,000 unit/mL INJ 1 mL 5000 UNIT SUBCUT ×3 (02:00→17:43)
[2022-12-03] MEDS: morphine 4 mg/mL SDV 1 mL 2 MG IVP ×3 (03:54→19:53)
[2022-12-03 05:58] LABS: Basophils # 0.1 10^3/uL (0.0-0.1); Basophils % 0.7 %; Eosinophils # 0.5 10^3/uL (0.0-0.8); Hematocrit 39.1 % (37.0-47.0); Hemoglobin 12.2 g/dL (11.5-15.3); Lymphocytes # 1.5 10^3/uL (0.8-4.8); Lymphocytes % 19.4 %; Mean Corpuscular HGB Conc 31.2 g/dL (30.0-36.0); Mean Corpuscular Hemoglobin 30.5 pg (28.0-34.0); Mean Corpuscular Volume 97.8 fl (81-99); Mean Platelet Volume 10.4 fL (7.4-10.4); Monocytes # 0.5 10^3/uL (0.2-0.9); Monocytes % 6.6 %; Neutrophils # 5.05 10^3/uL (1.8-7.7); Neutrophils % 66.8 %; Nucleated Red Blood Cells % 0 %; Platelet Count 197 10^3/cmm (130-400); White Blood Count 7.6 10^3/uL (4.0-10.0)
[2022-12-03] MEDS: HYDROcodone-acetaminophen 10-325 mg Tablet 2 TAB PO ×2 (06:12→14:23)
[2022-12-03 06:17] LABS: Blood Urea Nitrogen 10 mg/dL (6-20); Calcium 9.3 mg/dL (8.5-10.5); Carbon Dioxide 24 mmol/L (22-29); Chloride 101 mmol/L (98-107); Glomerular Filtration Rate 128.6 mL/min (90-130); Glucose 124 mg/dL (65-115); Osmolality Calculated 284 mOsm/kg (285-295); Sodium 137 mmol/L (136-145)
[2022-12-03 07:25] LABS: Glucose Point of Care 130 mg/dL (70-110)
[2022-12-03] MEDS: oxyCODONE 10 mg ER (12 HR) Tablet PO ×2 (08:53→17:43)
[2022-12-03] MEDS: pantoprazole DR 40 mg Tablet PO (08:54)
--- NOTE | 2022-12-03 09:15 | PC.OT ---
OT tx attempted at 0830. Pt sleeping with bipap on. When approached for OT tx to prep for breakfast pt declines and reports this is the first time I have been able to sleep . She declines tx and breakfast at this time. Therapist will attempt to return later today if possible.
[2022-12-03 11:03] LABS: Glucose Point of Care 161 mg/dL (70-110)
--- NOTE | 2022-12-03 12:15 | P.PN_ITS ---
Subjective Subjective: Patient was seen and examined this morning, no acute events overnight. Medications: Medication Review Details: Generic Name Dose Route Start Last Admin Trade Name Freq PRN Reason Stop Dose Admin Hydrocodone Bitart /Acetaminophen 2 tab 12/01/22 19:43 12/03/22 06:12 Hydrocodone-Acet aminophen 10-325 M g Tablet PO 2 tab TID PRN Administration pain Cyclobenzaprine HC l 5 mg 12/02/22 07:59 12/03/22 08:54 Cyclobenzaprine 10 Mg Tablet PO 5 mg TID PRN Administration MUSCLE SPASMS Diltiazem HCl 360 mg 12/01/22 21:00 12/02/22 22:01 Diltiazem Er (24 hr) 180 Mg Capsule PO 360 mg BEDTIME PHILIPPE Administration Heparin Sodium (Po rcine) 5,000 unit 12/01/22 18:00 12/03/22 09:49 Heparin 5,000 Un it/Ml Inj 1 Ml SUBCUT 5,000 unit Q8H PHILIPPE Administration Insulin Human Lisp ro 0 unit 12/01/22 18:00 12/03/22 11:59 Insulin Lispro 1 00 Unit/1 Ml SUBCUT Not Given WM&BEDTIME [facility] Protocol Morphine Sulfate 2 mg 12/01/22 17:27 12/03/22 11:19 Morphine 4 Mg/Ml Sdv 1 Ml IVP 2 mg Q4H PRN Administration SEVERE PAIN Oxycodone HCl 10 mg 12/01/22 19:49 12/03/22 08:53 Oxycodone 10 Mg Er (12 Hr) Tablet PO 10 mg BID PRN Administration pain Pantoprazole Sodiu m 40 mg 12/02/22 09:00 12/03/22 08:[address] 40 Mg Tablet PO 40 mg DAILY PHILIPPE Administration Sacubitril/Valsart an 1 each 12/01/22 21:00 12/02/22 22:01 Sacubitril/Valsa rtan 24-26 Mg Tabl et PO Not Given BID@0900,2100 [facility] Vitals/I&O/Wt Last Vital Signs Temp 97.5 F L 12/03/22 12:00 Pulse 74 12/03/22 12:00 Resp 14 12/03/22 12:00 BP 142/80 12/03/22 12:00 Pulse Ox 94 12/03/22 12:00 O2 Del Method Room Air 12/03/22 12:00 O2 Flow Rate 2 12/03/22 08:42 12/02/22 12/03/22 12/03/22 22:59 06:59 14:59 Intake Total 240 / 600 120 / 120 Balance 240 / 300 120 / 120 Weight last 48 hrs Weight 154.357 kg Weight 153.314 kg Physical Exam Const: COMMON NORMALS: patient oriented x3 HENMT: COMMON NORMALS: normocephalic and atraumatic HEAD & SCALP: normocephalic and atraumatic Resp: COMMON NORMALS: clear to auscultation bilaterally AUSCULTATION: clear to auscultation bilaterally Cardio: COMMON NORMALS: regular rate, regular rhythm, S1 normal heart sound present, S2 normal heart sound present, No gallops present (Cardio), No murmurs present (Cardio), No rub (Cardio) and Peripheral pulses 2+ throughout RATE: regular rate RHYTHM: regular rhythm HEART SOUNDS: S1 normal heart sound present and S2 normal heart sound present PERIPHERAL PULSES: Peripheral pulses 2+ throughout GI: COMMON NORMALS: Normal to inspection, nondistended, normoactive bowel sounds present, Soft to palpation, non-tender, No hepatosplenomegaly present and no masses AUSCULTATION: Yes normoactive bowel sounds PALPATION: Yes Soft to palpation and Yes No hepatosplenomegaly present RECTAL EXAM: deferred Extremity: COMMON NORMALS: no clubbing, cyanosis or edema and no pedal edema Neuro: COMMON NORMALS: patient oriented x3 Data 12/03/22 05:35 12/03/22 05:35 A&P Assessment and plan (1) Unable to care for self: (2) Fracture of distal end of fibula: Qualifiers: Encounter type: initial encounter Fracture morphology: unspecified fracture morphology Fracture type: closed Laterality: right Qualified Code(s): S82.831A - Other fracture of upper and lower end of right fibula, initial encounter for closed fracture (3) Fall: (4) Hypertension: (5) Morbid (severe) obesity due to excess calories: Plan 52 year old female with past medical history hypertension, diabetes,morbid obesity, was brought in today from home after she experienced a mechanical fall, she slipped on water at home, post fall she started experiencing severe pain, in her right lower extremity, for which she was brought in. Assessment: Nondisplaced oblique fracture distal fibula: X-ray tibia-fibula right has shown:Nondisplaced oblique fracture distal fibula at the ankle: It was discussed with the orthopedic physician by the ER, nonsurgical conservative management CAM Boot has been, suggested, since the patient is unable to take care of of herself at home, due to severe pain, even with bariatric wheelchair/bedside commode. she is being admitted for proper placement. Pain control Bowel regimen Left knee pain: MRI of left knee.without contrast : Markedly limited examination due to artifact produced by the patient's body habitus. Pronounced bone marrow edema in the lateral femoral condyle, likely secondary to contusion. Underlying nondisplaced fracture can not be entirely excluded. Chronic low-grade medial collateral ligament injury/sprain. Mild tricompartmental osteoarthrosis. Massive effusion. MRI Knee results discussed with mj reeves, no acute intervention needed at this time. Conservative management with knee immobilizer. ? History of hypertension: Currently patient is on p.o. Cardizem, as well as Entresto, enalapril. History of diabetes: On SSI, monitor fingerstick glucose CODE STATUS: Full code DVT prophylaxis on subcu heparin Disposition: Likely transfer to [facility]. Attestations Medical Necessity Statement*: Awaiting safe discharge. Coding Level of Care Code Acute Code for Chg Fwd Diagnoses Unable to care for self Z78.9 Fracture of distal end of fibula S82.831A Encounter type: initial encounter Fracture morphology: unspecified fracture morphology Fracture type: closed Laterality: right Fall W19.XXXA Hypertension I10 Morbid (severe) obesity due to excess calories E66.01
[2022-12-03] MEDS: sacubitril/valsartan 24-26 mg Tablet 1 EACH PO (14:23)
[2022-12-03 16:49] LABS: Glucose Point of Care 113 mg/dL (70-110)
[2022-12-03] MEDS: nystatin powder 15 gm Btl 1 APPLIC TOPICAL (17:45)
[2022-12-03 20:36] LABS: Glucose Point of Care 116 mg/dL (70-110)
[2022-12-03] MEDS: dilTIAZem ER (24HR) 180 mg Capsule 360 MG PO (20:50)
[2022-12-04] VITALS (11 sets, daily range): BP systolic 121–141; BP diastolic 61–81; PULSE 65–86; RESP 16–18; TEMP 36.1–36.7; O2SAT 90–96
[2022-12-04] MEDS: HYDROcodone-acetaminophen 10-325 mg Tablet 2 TAB PO ×2 (01:12→09:31)
[2022-12-04] MEDS: heparin 5,000 unit/mL INJ 1 mL 5000 UNIT SUBCUT ×2 (01:55→11:22)
[2022-12-04] MEDS: cyclobenzaprine 10 mg Tablet 5 MG PO ×2 (01:58→16:40)
[2022-12-04] MEDS: morphine 4 mg/mL SDV 1 mL 2 MG IVP ×3 (03:06→18:27)
[2022-12-04 05:52] LABS: Basophils % 0.6 %; Eosinophils # 0.5 10^3/uL (0.0-0.8); Eosinophils % 7.5 %; Hematocrit 40.2 % (37.0-47.0); Hemoglobin 12.3 g/dL (11.5-15.3); Lymphocytes # 1.6 10^3/uL (0.8-4.8); Lymphocytes % 23.6 %; Mean Corpuscular HGB Conc 30.6 g/dL (30.0-36.0); Mean Corpuscular Hemoglobin 30.1 pg (28.0-34.0); Mean Corpuscular Volume 98.3 fl (81-99); Mean Platelet Volume 10.3 fL (7.4-10.4); Monocytes # 0.4 10^3/uL (0.2-0.9); Monocytes % 5.7 %; Neutrophils # 4.15 10^3/uL (1.8-7.7); Nucleated Red Blood Cells % 0 %; Platelet Count 211 10^3/cmm (130-400); Red Blood Count 4.09 10^6/uL (4.1-5.3); White Blood Count 6.7 10^3/uL (4.0-10.0)
[2022-12-04 06:16] LABS: Anion Gap 14.9 (5-19); Blood Urea Nitrogen 10 mg/dL (6-20); Calcium 9.2 mg/dL (8.5-10.5); Carbon Dioxide 24 mmol/L (22-29); Chloride 100 mmol/L (98-107); Glomerular Filtration Rate 128.6 mL/min (90-130); Glucose 112 mg/dL (65-115); Osmolality Calculated 280 mOsm/kg (285-295); Potassium 3.9 mmol/L (3.5-5.1); Sodium 135 mmol/L (136-145)
[2022-12-04] MEDS: oxyCODONE 10 mg ER (12 HR) Tablet PO ×2 (06:28→16:40)
[2022-12-04 06:36] LABS: Glucose Point of Care 126 mg/dL (70-110)
[2022-12-04] MEDS: nystatin powder 15 gm Btl 1 APPLIC TOPICAL (07:32)
[2022-12-04] MEDS: pantoprazole DR 40 mg Tablet PO (08:11)
[2022-12-04] MEDS: sacubitril/valsartan 24-26 mg Tablet 1 EACH PO (08:11)
--- NOTE | 2022-12-04 09:37 | P.DS_ITS ---
Discharge Providers Date of Admission: 12/01/22 17:47 Date of Discharge: December 04, 2022 Attending Provider at Admission: Jerry Pate MD Attending Provider at Discharge: Jerry Pate MD Primary Care Provider: Luis Red MD Diagnoses at Discharge Discharge Diagnosis (1) Unable to care for self: Status: Acute (2) Fracture of distal end of fibula: Status: Acute Qualifiers: Encounter type: initial encounter Fracture morphology: unspecified fracture morphology Fracture type: closed Laterality: right Qualified Code(s): S82.831A - Other fracture of upper and lower end of right fibula, initial encounter for closed fracture (3) Fall: Status: Acute (4) Hypertension: Status: Acute (5) Morbid (severe) obesity due to excess calories: Status: Chronic Reason for Visit Reason for Visit: Fall/ BI leg pain Hospital Course Hospital Course 52 year old female with past medical history hypertension, diabetes,morbid obesity, was brought in today from home after she experienced a mechanical fall, she slipped on water at home, post fall she started experiencing severe pain, in her right lower extremity, she was admitted for the management of Nondisplaced oblique fracture distal fibula:,X-ray tibia-fibula right has shown:Nondisplaced oblique fracture distal fibula at the ankle: It was discussed with the orthopedic physician by the ER, nonsurgical conservative management CAM Boot and pain control has been, suggested, since the patient is unable to take care of of herself at home, due to severe pain, even with?bariatric wheelchair/bedside commode.She was later discharged to [facility], for continued recovery, as getting placement to SNF was difficult for her due to insurance issue. Physical Exam Const: COMMON NORMALS: patient oriented x3 HENMT: COMMON NORMALS: normocephalic and atraumatic HEAD & SCALP: normocephalic and atraumatic Resp: COMMON NORMALS: clear to auscultation bilaterally AUSCULTATION: clear to auscultation bilaterally Cardio: COMMON NORMALS: regular rate, regular rhythm, S1 normal heart sound present, S2 normal heart sound present, No gallops present (Cardio), No murmurs present (Cardio), No rub (Cardio) and Peripheral pulses 2+ throughout RATE: regular rate RHYTHM: regular rhythm HEART SOUNDS: S1 normal heart sound present and S2 normal heart sound present PERIPHERAL PULSES: Peripheral pulses 2+ throughout GI: COMMON NORMALS: Normal to inspection, nondistended, normoactive bowel sounds present, Soft to palpation, non-tender, No hepatosplenomegaly present and no masses AUSCULTATION: Yes normoactive bowel sounds PALPATION: Yes Soft to palpation and Yes No hepatosplenomegaly present RECTAL EXAM: deferred Extremity: COMMON NORMALS: no clubbing, cyanosis or edema and no pedal edema Neuro: COMMON NORMALS: patient oriented x3 Discharge Data Studies Completed and Pending Completed Studies During Hospitalization Category Date Time Status XR ankle RT min 3V* [id number] Stat Exams 12/01/22 13:41 Completed XR foot RT min 3V* [id number] Stat Exams 12/01/22 13:41 Completed XR knee LT 3V* [id number] Stat Exams 12/01/22 13:41 Completed XR tibia fibula RT 2V [id number] Stat Exams 12/01/22 13:41 Completed MR knee LT wo con* [id number] Routine MRI 12/02/22 14:13 Completed Radiology Impressions Ankle X-Ray 12/01/22 13:41 IMPRESSION: Nondisplaced oblique fracture distal fibula or proximal lateral malleolus with soft tissue swelling. Foot X-Ray 12/01/22 13:41 IMPRESSION: No fracture or acute osseous abnormality of the foot. Knee X-Ray 12/01/22 13:41 IMPRESSION: 1. Mild degenerative change. 2. No fracture or dislocation. Tibia/Fibula X-Ray 12/01/22 13:41 IMPRESSION: Nondisplaced oblique fracture distal fibula at the ankle. No other fracture seen. Knee MRI 12/02/22 14:13 IMPRESSION: 1. Markedly limited examination due to artifact produced by the patient's body habitus. 2. Pronounced bone marrow edema in the lateral femoral condyle, likely secondary to contusion. Underlying nondisplaced fracture can not be entirely excluded. 3. Chronic low-grade medial collateral ligament injury/sprain. 4. Mild tricompartmental osteoarthrosis. 5. Massive effusion. Laboratory Results WBC 6.7 10^3/uL (4.0-10.0) 12/04/22 05:35 RBC 4.09 10^6/uL (4.1-5.3) L 12/04/22 05:35 Hgb 12.3 g/dL (11.5-15.3) 12/04/22 05:35 Hct 40.2 % (37.0-47.0) 12/04/22 05:35 MCV 98.3 fl (81-99) 12/04/22 05:35 MCH 30.1 pg (28.0-34.0) 12/04/22 05:35 MCHC 30.6 g/dL (30.0-36.0) 12/04/22 05:35 RDW 13.0 % (12.1-15.1) 12/04/22 05:35 Plt Count 211 10^3/cmm (130-400) 12/04/22 05:35 MPV 10.3 fL (7.4-10.4) 12/04/22 05:35 Neut % (Auto) 62.0 % 12/04/22 05:35 Lymph % (Auto) 23.6 % 12/04/22 05:35 Falls % (Auto) 5.7 % 12/04/22 05:35 Eos % (Auto) 7.5 % 12/04/22 05:35 Baso % (Auto) 0.6 % 12/04/22 05:35 Neut # (Auto) 4.15 10^3/uL (1.8-7.7) 12/04/22 05:35 Lymph # (Auto) 1.6 10^3/uL (0.8-4.8) 12/04/22 05:35 Falls # (Auto) 0.4 10^3/uL (0.2-0.9) 12/04/22 05:35 Eos # (Auto) 0.5 10^3/uL (0.0-0.8) 12/04/22 05:35 Baso # (Auto) 0.0 10^3/uL (0.0-0.1) 12/04/22 05:35 Nucleated RBC % (auto) 0 % 12/04/22 05:35 Nucleated RBCs # 0.0 /100WBC 12/04/22 05:35 Sodium 135 mmol/L (136-145) L 12/04/22 05:35 Potassium 3.9 mmol/L (3.5-5.1) 12/04/22 05:35 Chloride 100 mmol/L (98-107) 12/04/22 05:35 Carbon Dioxide 24 mmol/L (22-29) 12/04/22 05:35 Anion Gap 14.9 (5-19) 12/04/22 05:35 BUN 10 mg/dL (6-20) 12/04/22 05:35 Creatinine 0.5 mg/dL (0.5-0.9) 12/04/22 05:35 GFR Calculation 128.6 mL/min (90-130) 12/04/22 05:35 Glucose 112 mg/dL (65-115) 12/04/22 05:35 POC Glucose 126 mg/dL (70-110) H 12/04/22 06:33 Calculated Osmolality 280 mOsm/kg (285-295) L 12/04/22 05:35 Calcium 9.2 mg/dL (8.5-10.5) 12/04/22 05:35 Total Bilirubin 0.5 mg/dL (0.15-1.2) 12/01/22 16:09 AST 31 U/L (0-32) 12/01/22 16:09 ALT 29 U/L (0-33) 12/01/22 16:09 Alkaline Phosphatase 83 U/L (35-105) 12/01/22 16:09 Total Protein 7.6 g/dL (6.6-8.7) 12/01/22 16:09 Albumin 4.8 g/dL (3.5-5.2) 12/01/22 16:09 Globulin 2.8 g/dL (1.3-4.6) 12/01/22 16:09 Vitals Last Vital Signs Temp 97.8 F 12/04/22 08:00 Pulse 82 12/04/22 08:00 Resp 17 12/04/22 08:00 BP 121/61 12/04/22 08:00 Pulse Ox 94 12/04/22 08:00 O2 Del Method Room Air 12/04/22 08:00 O2 Flow Rate 2 12/03/22 08:42 Discharge Plan Discharge Patient Disposition: Home Condition: Stable Prescriptions: Continued cholecalciferol (vitamin D3) 50,000 unit capsule 50,000 unit PO DAILY albuterol sulfate [ProAir HFA] 90 mcg/actuation HFA aerosol inhaler 1 inh INHALATION DAILY PRN (Reason: Shortness Of Breath) lorazepam [Ativan] 1 mg tablet 1 mg PO TID PRN (Reason: Anxiety) potassium chloride 10 mEq capsule, extended release 10 meq PO DAILY PRN (Reason: UNKNOWN) Rx Instructions: WHEN TAKING LASIX magnesium oxide 400 mg magnesium capsule 800 mg PO BID diltiazem HCl [Cartia XT] 120 mg capsule,extended release 24hr 360 mg PO DAILY Humalog U-100 Insulin 100 unit/mL cartridge 1 sliding scale dose SUBCUT .COMPLEX Rx Instructions: 1 sliding scale dose SUBCUT PER SLIDING SCALE; PER SLIDING SCALE pseudoephedrine HCl 30 mg tablet 30 mg PO DAILY PRN (Reason: UNKNOWN) metformin 500 mg tablet 1,000 mg PO QPM furosemide [Lasix] 20 mg tablet 40 mg PO PRN PRN (Reason: Edema) hydrocodone-acetaminophen 10-325 mg tablet 2 tab PO TID PRN (Reason: pain) 30 Days Qty: 180 0RF Rx Instructions: Fill on or after 08/28/21 oxycodone 10 mg tablet 10 mg PO BID PRN (Reason: pain) 30 Days Qty: 60 0RF Rx Instructions: fill on or after 08/30/21 tizanidine 4 mg tablet 4 mg PO TID PRN (Reason: muscle spasticity) 30 Days Qty: 90 0RF ergocalciferol (vitamin D2) 1,000 unit capsule 3,000 unit PO .WEEKLY Rx Instructions: on enalapril maleate 5 mg tablet 5 mg PO DAILY promethazine 25 mg tablet 25 mg PO Q4H PRN (Reason: nausea and vomiting) Qty: 20 0RF Entresto 24-26 mg tablet 1 tab PO BID Ozempic 0.25 mg or 0.5 mg (2 mg/3 mL) pen injector 0.5 mg SUBCUT Q7D Rx Instructions: ON TUESDAY pantoprazole 40 mg tablet,delayed release (DR/EC) 40 mg PO DAILY Qty: 90 8RF Discharge Orders: Discharge Order (Routine); Ordered 12/04/22 Ordered By: Jerry Pate Referrals: Luis Red MD [Primary Care Provider] - 1 week (Please call Tuesday to schedule a follow up appointment with Dr. Red.) Patient Instructions: Opioid Safety Discharge Attestations Time Spent in Discharge Care*: less than 30 min Quality Metrics Clinical Quality Measures [ No reported AMI, CVA or VTE this stay] Coding Level of Care Code Acute Code for Chg Fwd Diagnoses Unable to care for self Z78.9 Fracture of distal end of fibula S82.831A Encounter type: initial encounter Fracture morphology: unspecified fracture morphology Fracture type: closed Laterality: right Fall W19.XXXA Hypertension I10 Morbid (severe) obesity due to excess calories E66.01
[2022-12-04 11:31] LABS: Glucose Point of Care 129 mg/dL (70-110)
--- NOTE | 2022-12-04 12:31 | PC.SOCIAL ---
IMM update IMM updated with patient. Verbalized an understanding. Copy pg 2 provided. Initialled, dated, timed, and placed in chart.
[2022-12-04 16:38] LABS: Glucose Point of Care 122 mg/dL (70-110)
== END 2022-12-04 18:30 | DRG 563 ==
LOC: ER 16:17 → MEDSURG 17:47
PROVIDERS: Admitting Provider Internal Medicine; Emergency Provider Physician Assistant; PCP Family Medicine; Visit Provider Internal Medicine
DX: S82.435A Nondisplaced oblique fracture of shaft of left fibula, initial encounter for closed fracture (principal); Z68.43 Body mass index [BMI] 50.0-59.9, adult; W01.0XXA Fall on same level from slipping, tripping and stumbling without subsequent striking against object, initial encounter; Y92.009 Unspecified place in unspecified non-institutional (private) residence as the place of occurrence of the external cause; E78.5 Hyperlipidemia, unspecified; I10 Essential (primary) hypertension; E66.01 Morbid (severe) obesity due to excess calories; E11.9 Type 2 diabetes mellitus without complications; Z79.4 Long term (current) use of insulin; Z79.891 Long term (current) use of opiate analgesic
CPT/HCPCS: 36415; 36416; 73562; 73590; 73610; 73630; 73721; 80048; 80053; 82962; 85025; 94660; 94664; 96361; 96372; 96374; 96376; 97110; 97161; 97165; 97530; 97535; 97760; 99285; J1644; J1815; J2270; L4361

== ENCOUNTER → 2023-01-03 14:40 | Outpatient (BNVA) | payer MEDICARE, SELFPAY | PROVIDERS: PCP Family Medicine; Referring Provider Family Medicine; Visit Provider Student in an Organized Health Care Education/Training Program | DX: S82.831A Other fracture of upper and lower end of right fibula, initial encounter for closed fracture (principal); W01.0XXA Fall on same level from slipping, tripping and stumbling without subsequent striking against object, initial encounter | CPT/HCPCS: 27786; 73610; 97760; 99204; L4361 ==

== ENCOUNTER 2023-01-03 15:41 | Outpatient (CLI) | payer MEDICARE, SELFPAY | END 2023-01-03 15:42 | disposition home or self-care (01) | LOC: SPT 15:42 | PROVIDERS: PCP Family Medicine; Visit Provider Student in an Organized Health Care Education/Training Program | DX: S82.831A Other fracture of upper and lower end of right fibula, initial encounter for closed fracture (principal); X58.XXXA Exposure to other specified factors, initial encounter | CPT/HCPCS: 27786; 97760; 99204; L4361 ==

== ENCOUNTER → 2023-02-01 14:44 | Outpatient (BNVA) | payer MEDICARE, SELFPAY | PROVIDERS: PCP Family Medicine; Visit Provider Student in an Organized Health Care Education/Training Program | DX: S83.8X2A Sprain of other specified parts of left knee, initial encounter (principal); X58.XXXA Exposure to other specified factors, initial encounter; M25.562 Pain in left knee; S82.831A Other fracture of upper and lower end of right fibula, initial encounter for closed fracture; Z46.89 Encounter for fitting and adjustment of other specified devices | CPT/HCPCS: 73560; 73565; 73610; 97760; 99214; L1902 ==

== ENCOUNTER 2023-02-01 16:10 | Outpatient (CLI) | payer MEDICARE, SELFPAY | END 2023-02-01 16:11 | disposition home or self-care (01) | LOC: SPT 16:10 | PROVIDERS: PCP Family Medicine; Visit Provider Student in an Organized Health Care Education/Training Program | DX: Z46.89 Encounter for fitting and adjustment of other specified devices (principal); S82.831D Other fracture of upper and lower end of right fibula, subsequent encounter for closed fracture with routine healing; X58.XXXD Exposure to other specified factors, subsequent encounter | CPT/HCPCS: 97760; 99214; L1902 ==

== ENCOUNTER 2023-02-22 09:17 | Day surgery (SDC) | payer MEDICARE, SELFPAY ==
[2023-02-22 09:50] VITALS: BP 166/87; PULSE 93; RESP 20; TEMP 36.9; O2SAT 93; BMI 56.2
== END 2023-02-22 12:32 | disposition home or self-care (01) ==
LOC: GILAB 09:19
PROVIDERS: PCP Family Medicine; Visit Provider Family Medicine
DX: K59.00 Constipation, unspecified (principal); K57.00 Diverticulitis of small intestine with perforation and abscess without bleeding; N28.89 Other specified disorders of kidney and ureter; R16.0 Hepatomegaly, not elsewhere classified; K76.0 Fatty (change of) liver, not elsewhere classified
CPT/HCPCS: 45915; 74177; G0463; Q9967

== ENCOUNTER 2023-02-22 12:49 | Outpatient (CLI) | payer MEDICARE, SELFPAY ==
--- NOTE | 2023-02-22 13:28 | CT_ITS ---
WS: [id number] CT ABDOMEN AND PELVIS WITH CONTRAST HISTORY: OBSTIPATION/ACUTE CONSTIPATION TECHNIQUE: Imaging performed of the abdomen and pelvis with IV contrast. Single phase imaging of the abdomen. Coronal and sagittal reformats are submitted. All CT scans at [facility] use at [address] one of these dose optimization techniques: automated exposure control; mA and/or kV adjustment per patient size (includes targeted exams where dose is matched to clinical indication); or iterative re construction. IV CONTRAST: Omnipaque 350; 100 mL IV. Oral contrast: Yes. DLP: 1349.73 mGy COMPARISON: 07/01/2021 Lower thorax: Lung bases are clear. Heart is normal size. No hiatal hernia. Liver/biliary system: Moderate hepatomegaly. Liver measures 20 cm in length. Moderate hepatic steatos is. Normal portal vein. Gallbladder: Prior cholecystectomy. Pancreas: Normal size pancreas and pancreatic duct. No adjacent inflammation. Spleen: Splenic granulomata. Normal size spleen. Adrenal glands: Normal. Right kidney: Nonobstructing right renal calcification lower pole measures 8 mm. Left kidney: Normal. Aorta: Normal. Lymphadenopathy: None. Free fluid: None. GI tract: Prior appendectomy. Remaining GI tract is negative. Abdominal wall: Unremarkable abdominal wall. No hernia. Pelvis: Uterus remains midline. No pelvic mass. Bones: Unremarkable. IMPRESSION: 1. Quality of this examination is compromised by patient's body habitus. 2. No GI tract obstruction. No significant obstipation or constipation. 3. Nonobstructing right renal calcification, 8 mm. 4. Moderate hepatomegaly and hepatic steatosis.
[2023-02-22] MEDS: iohexol 350 mg/mL 500 mL Btl (per mL) IV (13:30)
== END 2023-02-22 12:50 | disposition home or self-care (01) ==
PROVIDERS: PCP Family Medicine; Visit Provider Family Medicine
DX: K57.00 Diverticulitis of small intestine with perforation and abscess without bleeding (principal); N28.89 Other specified disorders of kidney and ureter; R16.0 Hepatomegaly, not elsewhere classified; K76.0 Fatty (change of) liver, not elsewhere classified
CPT/HCPCS: 74177; Q9967

== ENCOUNTER 2023-02-24 15:25 | Outpatient (CLI) | payer MEDICARE, SELFPAY ==
--- NOTE | 2023-02-24 16:45 | MR_ITS ---
WS: [id number] MRI LEFT KNEE NONCONTRAST TECHNIQUE: Axial PD, coronal PD fat sat, coronal PD, sagittal PD, and sagittal PD fat-sat images obta ined. CLINICAL INFORMATION: left knee injury COMPARISON: MRI 12/02/2022 FINDINGS: Distal quadriceps and patellar tendons are intact. Small suprapatellar effusion is decreased compared to previous. Moderate tricompartmental arthritis advanced for patient this age. ACL and PCL appear i ntact. Hypertrophic patella. Advanced degenerative narrowing of the patellofemoral articulation. Late ral subluxation of the patella within the trochlear groove unchanged since the previous examination. Recommend correlation for patellar instability. Mild edema and irregularity involving the medial beck llar retinaculum and medial collateral ligament. Fluid and edema along the superficial and deep fiber s of the MCL compatible with grade 1-2 injury. Distal MCL fibers appear intact. Edema has improved co mpared to previous. Chronic thinning of the medial and lateral meniscus. No acute appearing meniscal tears. Small amount of prepatellar soft tissue edema. Normal popliteal fossa. Advanced chondromalacia patella worse invol ving the lateral patellar facet. Improved contusion previously described involving the lateral femora l condyle. Lateral collateral ligament appears intact. Biceps femoris appears intact. IMPRESSION: * Improved suprapatellar effusion. * Moderate tricompartmental arthritis with advanced chondromalacia patella worse involving the later al patellar facet. * Lateral subluxation of the patella within the trochlear groove with edema and irregularity involvi ng the medial patellar retinaculum and grade 1-2 MCL injury. Recommend correlation for patellar insta bility. * Previously described femoral condyle contusion along the lateral femoral condyle has improved and nearly resolved. * No acute appearing meniscal tears. * Grade 3-4 chondromalacia involving the medial and lateral joint compartments. Outbridge grading: grade IV: full-thickness cartilage loss with underlying bone reactive changes
== END 2023-02-24 15:26 | disposition home or self-care (01) ==
PROVIDERS: PCP Family Medicine; Visit Provider Student in an Organized Health Care Education/Training Program
DX: M17.12 Unilateral primary osteoarthritis, left knee (principal); S83.012A Lateral subluxation of left patella, initial encounter; X58.XXXA Exposure to other specified factors, initial encounter; M25.462 Effusion, left knee; M22.42 Chondromalacia patellae, left knee
CPT/HCPCS: 73721

== ENCOUNTER 2023-03-25 13:18 | Outpatient (CLI) | payer MEDICARE, SELFPAY ==
--- NOTE | 2023-03-25 | USCV_ITS ---
Neeru Cedillo Age: 52 Gender: F : 1970 Exam Date: 03/25/2023 16:16 Ordering Phys: Missy Schmidt MD Technologist: BARRY Exam Location: [facility] [place] Indication: SHORTNESS OF BREATH BP: 160 / 90 HR: 90 Rhythm: Sinus Technical Quality: Adequate MEASUREMENTS (Male / Female) Normal Values 2D ECHO LVOT Diameter 2.0 cm LV Ejection Fraction MOD 2C 53.8 % LV Ejection Fraction 2C AL 54.6 % LA Diameter 3.8 cm LA Width 3.4 cm LA Height 4.6 cm RA Width 3.1 cm RA Height 3.8 cm Aorta at Sinotubular Diameter 2.3 cm IVC Diameter 1.2 cm M-MODE Aortic Annulus Diameter 2.9 cm LA Ao Ratio MM 1.2 MV E Point Septal Separation 1.0 cm DOPPLER AV Peak Velocity 199.7 cm/s LVOT Peak Velocity 96.0 cm/s AV Area Cont Eq vti 1.6 cm squared AV Area Cont Eq pk 1.5 cm squared MV Peak Velocity 152.0 cm/s MV Area PHT 3.4 cm squared Mitral E to A Ratio 0.9 MV E' Velocity 60.5 cm/s Mitral E to MV E' Ratio 9.1 Mitral E to LV E' Lateral Ratio 7.7 Mitral E to LV E' Septal Ratio 11.1 TR Peak Velocity 261.4 cm/s TR Peak Gradient 27.3 mmHg TR Mean Velocity 215.1 cm/s TR Mean Gradient 19.6 mmHg TR Velocity Time Integral 79.2 cm TV Peak E Velocity 57.0 cm/s Right Atrial Pressure 3.0 mmHg Pulmonary Artery Systolic Pressu 30.3 mmHg PV Peak Velocity 146.0 cm/s RV Acceleration Time 0.1 s RV Ejection Time 0.2 s RV AcT/ET 0.3 FINDINGS Left Ventricle Normal left ventricular size, systolic function and wall thickness, with no regional wall motion abnormalities. Left ventricular ejection fraction is estimated at 65 %. Normal diastolic function. Right Ventricle Normal right ventricular size and systolic function. Right ventricular systolic pressure 30.3 mmHg. Right Atrium Normal right atrial size. Left Atrium Normal left atrial size. Mitral Valve Structurally normal mitral valve. No mitral valve stenosis. No significant mitral valve regurgitation. Aortic Valve Structurally normal trileaflet aortic valve. No aortic valve stenosis. No aortic valve regurgitation. Tricuspid Valve Structurally normal tricuspid valve. Trace tricuspid valve regurgitation. Pulmonic Valve Structurally normal pulmonic valve. No pulmonary valve stenosis. Trace pulmonary valve regurgitation. Pericardium No pericardial effusion. Aorta Normal size aortic root and proximal ascending aorta. IVC Normal IVC dimension with >50% respiratory change of the inferior vena cava. CONCLUSIONS 1. This is a technically difficult study. Optison was used per protocol. 2. Normal left ventricular size, systolic function and wall thickness, with no regional wall motion abnormalities. Left ventricular ejection fraction is estimated at 65 %. Normal diastolic function. 3. Trace tricuspid valve regurgitation. 4. Direct comparison to previous study dated 12/13/2018 is not possible due to technically very difficult previous study. Kaylin Pozo MD (Electronically Signed) Final Date: 26 March 2023 11:40 S
[2023-03-25] MEDS: perflutren protein-a microsphr 0.22 mg/mL SDV 3 mL IV (16:37)
--- NOTE | 2023-03-25 16:38 | USR_ITS ---
PROCEDURE INFORMATION: Exam: US Duplex Right Lower Extremity Veins, Limited Exam date and time: 03/25/2023 4:51 PM Age: 52 years old Clinical indication: Pain; Leg, lower; Right; Additional info: Rule out blood clot TECHNIQUE: Imaging protocol: Real-time duplex ultrasound of the right extremity with 2-D gutiérrez scale, color Doppler flow and spectral waveform analysis including responses to compression and other maneuvers (when performed) with image documentation. Limited exam was focused on the right lower extremity veins. COMPARISON: US pelv w/transvag [id number] 10/02/2021 12:03 PM FINDINGS: Right deep veins: Unremarkable. The common femoral, femoral, proximal profunda femoral and popliteal veins are patent without thrombus. Normal Doppler waveforms. Normal compressibility and/or augmentation response. Superficial veins: Unremarkable. Saphenofemoral junction is patent without thrombus. Soft tissues: Unremarkable. US/[place] [id number] IMPRESSION: No evidence of deep vein thrombosis.
== END 2023-03-25 13:19 | disposition home or self-care (01) ==
PROVIDERS: PCP Family Medicine; Visit Provider Internal Medicine
DX: R22.40 Localized swelling, mass and lump, unspecified lower limb; Z86.718 Personal history of other venous thrombosis and embolism; S82.831A Other fracture of upper and lower end of right fibula, initial encounter for closed fracture; R10.2 Pelvic and perineal pain; S89.82XA Other specified injuries of left lower leg, initial encounter; W23.0XXA Caught, crushed, jammed, or pinched between moving objects, initial encounter
CPT/HCPCS: 73610; 73630; 93971; 99214; C8929; Q9956

== ENCOUNTER → 2023-04-12 12:15 | Outpatient (BNVA) | payer MEDICARE, SELFPAY | PROVIDERS: PCP Family Medicine; Visit Provider Nurse Practitioner Women's Health | DX: R35.0 Frequency of micturition (principal); Z12.4 Encounter for screening for malignant neoplasm of cervix | CPT/HCPCS: 84315; 87086; 87624 ==

== ENCOUNTER → 2023-04-13 15:37 | Outpatient (BNVA) | payer MEDICARE, SELFPAY | PROVIDERS: PCP Family Medicine; Visit Provider Nurse Practitioner Women's Health | DX: N83.202 Unspecified ovarian cyst, left side (principal) | CPT/HCPCS: 76830 ==

== ENCOUNTER → 2023-10-11 13:35 | Outpatient (BNVA) | payer MEDICARE, SELFPAY | PROVIDERS: PCP Family Medicine; Referring Provider Nurse Practitioner Family; Visit Provider Student in an Organized Health Care Education/Training Program | DX: M75.42 Impingement syndrome of left shoulder; M25.512 Pain in left shoulder | CPT/HCPCS: 73030; 99213 ==

== ENCOUNTER 2024-02-20 09:22 | Outpatient (CLI) | payer MEDICARE, SELFPAY ==
--- NOTE | 2024-02-20 09:36 | US_ITS ---
WS: [id number] ULTRASOUND SOFT TISSUE AREA OF CONCERN INDICATION: Lymphedema of LEFT upper extremity. History of breast cancer. TECHNIQUE: FINDINGS: No suspicious abnormalities in the area of LEFT shoulder pain. A few small subcentimeter ec hogenic lesions most consistent with incidental lipomas. Ultrasound LEFT axilla patient directed shows a dense shadowing 5 cm spiculated region which may jack espond to prior postoperative changes but indeterminate especially considering history of breast canc er. Recommend comparison with outside studies. This could be further evaluated with chest CT. US/US soft tissue/extremity [id number] IMPRESSION: 1. No suspicious abnormalities in the posterior shoulder region area of concer n. A few small subcentimeter echogenic lipomas in this area. 2. In the LEFT axilla, area of concern patient directed, there is a densely sh adowing spiculated region measuring 5 cm. This is indeterminate and no recent u ltrasounds for comparison. Recommend correlation with prior outside imaging. Th is can be further evaluated with chest CT. Prior PET/CT from 2019 demonstrates postoperative change in the LEFT axilla with inflammatory uptake which may cor respond to today's findings but indeterminant.
== END 2024-02-20 09:23 | disposition home or self-care (01) ==
LOC: RAD 09:30
PROVIDERS: PCP Family Medicine; Visit Provider Nurse Practitioner Adult Health
DX: I89.0 Lymphedema, not elsewhere classified (principal); Z85.3 Personal history of malignant neoplasm of breast; C77.3 Secondary and unspecified malignant neoplasm of axilla and upper limb lymph nodes; M79.622 Pain in left upper arm
CPT/HCPCS: 76882

== ENCOUNTER 2024-04-17 13:23 | Outpatient (CLI) | payer MEDICARE, SELFPAY ==
--- NOTE | 2024-04-17 13:30 | XR_ITS ---
WS: [id number] SCREENING DEXA SCAN [facility] CLINICAL INFORMATION: POST MENOPAUSAL COMPARISON: None. FINDINGS: The LEFT forearm bone mineral density measures 0.872. This corresponds to a T score score of 0.0 and Z score of 0.4. Left femoral neck bone mineral density measures 0.631 g/cm2. This corresponds to a T score of -3.0 an d Z score of -3.2. Right femoral neck bone mineral density measures 0.704 g/cm2. This corresponds to a T score -2.4of an d Z score of -2.6. Mean femoral neck bone mineral density measures 0.667 g/cm2. This corresponds to a T score of -2.7 an d Z score of -2.9. XR/XR DEXA axial skeleton* 16761 IMPRESSION: Normal bone mineralization LEFT forearm. Osteoporosis femoral necks. Patient's FRAX calculated 10 year probability for major osteoporotic fracture i s 26.9% and osteoporotic hip fracture is 4.2%.
== END 2024-04-17 13:24 | disposition home or self-care (01) ==
PROVIDERS: PCP Family Medicine; Visit Provider Family Medicine
DX: Z13.820 Encounter for screening for osteoporosis (principal); Z78.0 Asymptomatic menopausal state; M81.0 Age-related osteoporosis without current pathological fracture
CPT/HCPCS: 77080

== ENCOUNTER 2024-05-23 08:26 | Outpatient (CLI) | payer MEDICARE, SELFPAY ==
--- NOTE | 2024-05-23 08:30 | US_ITS ---
WS: [id number] THYROID ULTRASOUND HISTORY: PARATHYROID GLAND DISORDER COMPARISON: 08/31/2011, neck CT 10/05/2022 Right lobe: 1.2 cm x 2.7 cm x 4.2 cm (w x ap x l). Volume: 6.7 cm3. Normal sized gland. Multiple colloid cysts are present throughout the gland. There are no nodules or suspicious masses or echogenic foci. Left lobe: 1.5 cm x 2.2 cm x 4.1 cm (w x ap x l). Volume: 6.4 cm3. Mildly heterogeneous gland. In the central gland there is a nearly solid nodule with a few cystic are as. This is in the mid gland measuring 1.4 x 1.5 x 2.0 cm. There is no significant amount of increase d vascularity identified. This nodule has progressed in size since 2011. This could be due to adjacen t thyroid nodules which have become confluent or 2 separate nodules. Isthmus: 0.5 cm. US/US thyroid [id number] IMPRESSION: 1. TI-RADS 3: Mildly suspicious nodule LEFT thyroid. TI-RADS criteria recommen ds yearly follow-up at 1, 3 and 5 years. If this nodule becomes greater than 2. 5 cm FNA can be performed. 2. Multiple colloid cyst RIGHT thyroid.
== END 2024-05-23 08:27 | disposition home or self-care (01) ==
LOC: RAD 08:26
PROVIDERS: PCP Family Medicine; Visit Provider Family Medicine
DX: E21.5 Disorder of parathyroid gland, unspecified (principal); E04.2 Nontoxic multinodular goiter
CPT/HCPCS: 76536

== ENCOUNTER 2025-04-02 09:09 | Emergency (ER) | payer MEDICARE, SELFPAY ==
--- OUTSIDE RECORDS SUMMARY | 2024-10-29 03:40 | XMS_ITS ---
Author Organization [facility] Address [address] [place] [address] Care Team Providers Care Tree Farmer Name Role Phone Rosalba Liu Unavailable Jameel Agarwal Unavailable [phone] REASON FOR VISIT Ref/Con: EGD Encounters Encounter Location Date Provider Diagnosis [facility] [address] [place] [id number] 10/29/2024 Jameel Agarwal Plan Of Treatment No Information Progress Notes * Neeru LOPEZ DDOB:1970 (54 yo F)Acc No.[id number]:10/29/2024 Progress Notes Patient: Andrea braga Neeru Dejan Provider: Ac Agarwal MD :1970 A ge:53 Y S ex:Female Date:10/29/2024 Address:[address] [id number] Subjective: * Chief Complaints: * R ef/Con: EGD Billing Information: * Procedure Codes: * Electronic signature of Claude Agarwal MD on 04/02/2025 at 09:19 AM CDT Sign off status: Pending * Provider: Ac Agarwal MD Date: 0 10/29/2024 Generated for Dyloni ng/Faxing/eTransmitting on: 0 04/02/2025 09:19 AM CDT
[2025-04-02] VITALS (7 sets, daily range): BP systolic 140–165; BP diastolic 69–94; PULSE 54–72; RESP 16; TEMP 36.8; O2SAT 93–97; BMI 60.0
--- NOTE | 2025-04-02 09:11 | XR_ITS ---
WS: [id number] Exam: XR chest 1V portable [id number] Date/Time of Exam: 04/02/2025 9:13 AM Reason For Exam: chest pain Comparison 01/08/2021. The lungs are fully expanded and clear. Normal cardiomediastinal silhouette. Bony structures are intact. Surgical clips in the superior mediastinum. Healed proximal RIGHT humeral fracture. XR/XR chest 1V portable [id number] IMPRESSION: 1. No acute cardiopulmonary finding.
--- NOTE | 2025-04-02 09:13 | ECG_ITS ---
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 Measurements Intervals [place] Rate: 68 P: 50 NM: 184 QRS: -10 QRSD: 84 T: -3 QT: 397 QTc: 424 Interpretive Statements SINUS RHYTHM LOW QRS VOLTAGE IN PRECORDIAL LEADS [QRS DEFLECTION < 1.0 mV IN CHEST LEADS] Compared to ECG 10/15/2021 14:12:54 Low QRS voltage now present Electronically Signed On 04-03-2025 21:17:20 CDT by Bubba Rodas M.D. [email or web address]
--- NOTE | 2025-04-02 09:17 | ED_ITS ---
HPI - Chest Pain 2 General: Chief Complaint: Chest Pain Stated Complaint: Chest Pain Time Seen by Provider: 04/02/25 09:11 History of Present Illness: 54-year-old female presents emergency ro om planing of chest pain last couple of days. Patient has a history of breast cancer. No recent falls. Pain is worse when she takes a deep breath. It is mostly on the right side radiates into her back she has previously had a cholecystectomy she denies any productive cough or any hemoptysis. Associated symptoms: Deny abdominal pain, dyspnea or fever(s) Related Data Home Medications ?Medication ?Instructions ?Recorded ?Confirmed albuterol sulfate 90 mcg/actuation 1 inh inhalation DA GEMMA PRN 07/23/19 10/11/23 aerosol inhaler (ProAir HFA) Shortness Of Breath diltiazem HCl 120 mg 360 mg PO DAILY 07/23/1909/03 capsule,extended release 24 hr (Cartia XT) insulin lispro 100 unit/mL 1 sliding scale dose SUBCUT 07/23/19 10/11/23 subcutaneous cartridge (Humalog .COMPLEX U-100 Insulin) lorazepam 1 mg tablet (Ativan) 1 mg PO TID PRN Anxiety 07/23/19 10/11/23 magnesium oxide 800 mg PO BID 07/23/1910/10 metformin 500 mg tablet 1,000 mg PO QPM 07/23/1909/03 potassium chloride 10 mEq 10 meq PO DAILY PRN UNKNOWN 07/23/19 10/11/23 capsule,extended release pseudoephedrine HCl 30 mg tablet 30 mg PO DAILY PRN UN KNOWN 07/23/19 10/11/23 cholecalciferol (vitamin D3) 1,250 50,000 unit PO GINGER Y 07/24/19 10/11/23 mcg (50,000 unit) capsule ergocalciferol (vitamin D2) 1,000 3,000 unit PO .WEEKL Y 09/17/21 10/11/23 unit capsule furosemide 20 mg tablet (Lasix) 40 mg PO PRN PRN Edema 09/17/21 10/11/23 sacubitril 24 mg-valsartan 26 mg 1 tab PO BID 12/01/22 10/11/23 tablet (Entresto) tirzepatide 5 mg/0.5 mL mg SUBCUT 10/11/23 10/11/23 subcutaneous pen injector (Linh) Previous Rx's ?Medication ?Instructions ?Recorded promethazine 25 mg tablet 25 mg PO Q4H PRN nausea and 12/01/19 vomiting #20 tabs hydrocodone 10 mg-acetaminophen 2 tab PO TID PRN pain 30 days #180 07/23/21 325 mg tablet tabs oxycodone 10 mg tablet 10 mg PO BID PRN pain 30 day s #60 07/23/21 tabs tizanidine 4 mg tablet 4 mg PO TID PRN muscle spast icity 07/23/21 30 days #90 tabs pantoprazole 40 mg tablet,delayed 40 mg PO DAILY #90 t abs 02/22/22 release Hinged Knee Brace #1 ea 03/25/23 Allergies Allergy/AdvReac Type Severity Reaction Status Date / Time clarithromycin (From Biaxin) Allergy rash yeast Verified 10/11/23 13:40 infection clonazepam Allergy increas Verified 10/11/23 13:40 heart rate and hypertension doxycycline Allergy hypertensio Verified 10/11/23 13:40 n droperidol Allergy hypertensio Verified 10/11/23 13:40 n erythromycin base Allergy hives and Verified 10/11/23 13:40 anaphylaxis escitalopram (From Lexapro) Allergy ADR-Hyperte Verified 10/11/23 13:40 nsion hydrocodone (From Hysingla Allergy HEART RACE Verified 10/11/23 13:40 ER) hydromorphone (Dilaudid) Allergy hypertension, Verified 10/11/23 13:40 tachycardia latex Allergy ADR-Abdominal Verified 10/11/23 13:40 Pain meperidine (Demerol) Allergy hives Verified 10/11/23 13:40 metoprolol Allergy ADR-Hyperte Verified 10/11/23 13:40 nsion ondansetron (From Zofran) Allergy abnormal Verified 10/11/23 13:40 EKG penicillin G Allergy as a Verified 10/11/23 13:40 child, swelling prochlorperazine (From Allergy hypotension Verified 10/11/23 13:40 Compazine) rivaroxaban (From Xarelto) Allergy hypertension, Verified 10/11/23 13:40 tachycardia tramadol Allergy tachycardia Verified 10/11/23 13:40 verapamil Allergy hypotension Verified 10/11/23 13:40 Review of Systems 2 Const: Denies: fever(s) or chills Card: Denies: chest pain Resp: Denies: dyspnea GI: Denies: abdominal pain : Denies: dysuria, urinary frequency or urinary urgency Musc: Denies: neck pain or back pain Skin/Breast: Denies: rash PFSH ED 2 PFSH: Medical History Breast cancer in female Reporting Triple negative breast cancer -- 2 different times, requiring removal of left breast lump and then lymph nodes on the second round; both times requiring chemotherapy. Left leg pain Fracture of distal end of fibula Syncope and collapse Chronic low back pain Hydrosalpinx Diagnosed in 2012. Has been followed by [facility] [place]. 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 bleeding with Stevens; benign pathology Status post left breast lumpectomy (~2011) [place] node 2011 with recurrence 2015 H/O tubal ligation (~1987) H/O elbow surgery (~1988) Left H/O mastectomy (07/10/12) Subtotal left mastectomy.Dx: Invasive ductal carcinoma of the left breast History of appendectomy (~1992) History of cholecystectomy (~2000) Family History Father Hypertension Mother CAD (coronary artery disease) Grandmother Thyroid disease paternal Social History Substance/Drug Use: never Physical Exam 2 Const: COMMON NORMALS: no acute distress GENERAL APPEARANCE: cooperative and comfortable ORIENTATION/CONSCIOUSNESS: Yes awake, Yes oriented to person, Yes oriented to place and Yes oriented to time HENMT: COMMON NORMALS: normocephalic, atraumatic and hearing grossly normal bilaterally HEAD & SCALP: normocephalic and atraumatic Resp: COMMON NORMALS: normal respiratory effort, No retractions, No use of accessory muscles and clear to auscultation bilaterally AUSCULTATION: clear to auscultation bilaterally Cardio: COMMON NORMALS: regular rate, regular rhythm and No murmurs present (Cardio) RATE: regular rate RHYTHM: regular rhythm GI: COMMON NORMALS: Soft to palpation and No hepatosplenomegaly present A USCULTATION: Yes normoactive bowel sounds PALPATION: Yes Soft to palpation, No Tenderness to palpation present (GI), No Guarding due to palpation present (GI) and Yes No hepatosplenomegaly present Extremity: COMMON NORMALS: normal to inspection, capillary refill normal, no clubbing, cyanosis or edema, no calf tenderness and no pedal edema Neuro: SENSORIUM/ORIENTATION: Yes oriented to person, Yes oriented to place and Yes oriented to time Skin: COMMON NORMALS: no rashes or lesions noted GENERAL SKIN EXAM: no rashes or lesions noted Course 2 Vital Signs: Vital signs: Vital Signs Temperature 98.2 F 04/02/25 09:19 Pulse Rate 64 04/02/25 13:05 Respiratory Rate 16 04/02/25 09:19 Blood Pressure 140/69 04/02/25 13:05 Pulse Oximetry 96 04/02/25 13:05 Oxygen Delivery Me thod Room Air 04/02/25 12:16 MDM - Chest Pain Medical Decision Making Cardiac enzymes EKG unremarkable. Her symptoms seem more musculoskeletal or pleuritic pleuritic in nature when she takes a deep breath she has pain. She is continue to monitor for due to her history of breast cancer. At this point no acute findings can discharge her home return if she has further problems. Repeat exam unremarkable. Patient has not had any tachycardia dyspnea or hypoxia. No evidence of pneumonia on chest x-ray no pneumothorax no widening of mediastinum. Medical Records I reviewed the patient's medical records. Lab Data I reviewed the patient's lab results. 04/02/25 09:28 04/02/25 09:28 Radiology Impressions Chest X-Ray 04/02/25 09:11 IMPRESSION: 1. No acute cardiopulmonary finding. Laboratory Results WBC 7.28 10^3/uL (3.29-11.43) 04/02/25 09:28 RBC 3.95 10^6/uL (3.85-5.65) 04/02/25 09:28 Hgb 11.90 g/dL (11.27-16.99) 04/02/25 09: Hct 37.4 % (36-47) 04/02/25 09: MCV 94.7 fl (85-98) 04/02/25 09: MCH 30.1 pg (27-33) 04/02/25 09: MCHC 31.8 g/dL (30-55) 04/02/25 09: RDW 14.0 % (12.1-15.1) 04/02/25 09: Plt Count 216 10^3/cmm (157-399) 04/02/25 09: MPV 10.0 fL (7.4-10.4) 04/02/25 09: Neut % (Auto) 66.7 % 04/02/25 09: Lymph % (Auto) 24.2 % 04/02/25 09: [place] % (Auto) 6.5 % 04/02/25 09: Eos % (Auto) 1.8 % 04/02/25 09: Baso % (Auto) 0.3 % 04/02/25 09: Neut # (Auto) 4.86 10^3/uL (1.8-7.7) 04/02/25 09: Lymph # (Auto) 1.8 10^3/uL (0.8-4.8) 04/02/25 09: [place] # (Auto) 0.5 10^3/uL (0.2-0.9) 04/02/25: Eos # (Auto) 0.1 10^3/uL (0.0-0.8) 04/02/25 09: Baso # (Auto) 0.0 10^3/uL (0.0-0.1) 04/02/25: Nucleated RBC % (auto) 0 % 04/02/25: Nucleated RBCs # 0.0 /100WBC 04/02/25 09: Sodium 138 mmol/L (136-145) 04/02/25 09: Potassium 4.4 mmol/L (3.5-5.1) 04/02/25 09: Chloride 98 mmol/L (98-107) 04/02/25 09: Carbon Dioxide 29 mmol/L (22-29) 04/02/25 09:28 Anion Gap 15.4 (5-19) 04/02/25 09:28 BUN 23 mg/dL (6-20) H 04/02/25 09:28 Creatinine 0.7 mg/dL (0.5-0.9) 04/02/25 09:28 GFR Calculation 86.6 mL/min (90-130) L 04/02/25 09:28 Glucose 163 mg/dL (65-115) H 04/02/25 09:28 Calculated Osmolality 293 mOsm/kg (285-295) 04/02/25 09:28 Calcium 9.5 mg/dL (8.5-10.5) 04/02/25 09:28 Total Bilirubin 0.5 mg/dL (0.15-1.2) 04/02/25 09:28 AST 9 U/L (0-32) 04/02/25 09:28 ALT 11 U/L (0-33) 04/02/25 09:28 Alkaline Phosphatase 83 U/L (35-105) 04/02/25 09:28 Troponin T Baseline < 6 ng/L (0-10) 04/02/25 09:28 Troponin T 120 Minute < 6.0 ng/L (0-10) 04/02/25 11:20 Delta Troponin T 0 ABS# (0-10) 04/02/25 11:20 Total Protein 7.0 g/dL (6.6-8.7) 04/02/25 09:28 Albumin 4.5 g/dL (3.5-5.2) 04/02/25 09:28 Globulin 2.5 g/dL (1.3-4.6) 04/02/25 09:28 All radiology interpretation(s) finalized by discharge EKG Data EKG 1: Interpretation: EKG 04/02/2025 9:13 AM sinus rhythm rate of 68 [place] interval 194 QTc [address] changes noted. Compared to EKG 10/15/2021 EKG 2: Interpretation: EKG 923 2025-05-23 sinus rhythm no acute ST changes noted rate of 62. Normal 186 QTc 438 no change from EKG done earlier same day Discharge Plan Discharge Patient Disposition: Home Clinical Impression: Atypical chest pain Condition: Stable Prescriptions: No Action cholecalciferol (vitamin D3) 50,000 unit capsule 50,000 unit PO DAILY albuterol sulfate [ProAir HFA] 90 mcg/actuation HFA aerosol inhaler 1 inh INHALATION DAILY PRN (Reason: Shortness Of Breath) lorazepam [Ativan] 1 mg tablet 1 mg PO TID PRN (Reason: Anxiety) potassium chloride 10 mEq capsule, extended release 10 meq PO DAILY PRN (Reason: UNKNOWN) Rx Instructions: WHEN TAKING LASIX magnesium oxide 400 mg magnesium capsule 800 mg PO BID diltiazem HCl [Cartia XT] 120 mg capsule,extended release 24hr 360 mg PO DAILY Humalog U-100 Insulin 100 unit/mL cartridge 1 sliding scale dose SUBCUT .COMPLEX Rx Instructions: 1 sliding scale dose SUBCUT PER SLIDING SCALE; PER SLIDING SCALE pseudoephedrine HCl 30 mg tablet 30 mg PO DAILY PRN (Reason: UNKNOWN) metformin 500 mg tablet 1,000 mg PO QPM furosemide [Lasix] 20 mg tablet 40 mg PO PRN PRN (Reason: Edema) hydrocodone-acetaminophen 10-325 mg tablet 2 tab PO TID PRN (Reason: pain) 30 Days Qty: 180 0RF Rx Instructions: Fill on or after 08/28/21 oxycodone 10 mg tablet 10 mg PO BID PRN (Reason: pain) 30 Days Qty: 60 0RF Rx Instructions: fill on or after 08/30/21 tizanidine 4 mg tablet 4 mg PO TID PRN (Reason: muscle spasticity) 30 Days Qty: 90 0RF ergocalciferol (vitamin D2) 1,000 unit capsule 3,000 unit PO .WEEKLY Rx Instructions: on (DME) Hinged Knee Brace See Rx Instructions .Route .MEDSUPPLY Qty: 1 0RF Rx Instructions: As directed Mounjaro 5 mg/0.5 mL pen injector SUBCUT promethazine 25 mg tablet 25 mg PO Q4H PRN (Reason: nausea and vomiting) Qty: 20 0RF Entresto 24-26 mg tablet 1 tab PO BID pantoprazole 40 mg tablet,delayed release (DR/EC) 40 mg PO DAILY Qty: 90 8RF Discharge Orders: Discharge ED (Routine); Ordered 04/02/25 Ordered By: Arden Blake Referrals: Luis Red MD [Primary Care Provider, Family Practice] Discharge Diet: Usual diet Discharge Activity: Resume usual activity Patient Instructions: Opioid Safety, Pain Management, Patient Portal & [place] Instructions Activity Restrictions/Additional Instructions: Thank you for choosing [facility] for your healthcare needs today. It is very important that you follow up as instructed or that you return to the Emergency Department should you have concerns or if your condition changes or worsens in any way. Emergency department visits are focused on emergent conditions, in some cases you may require further evaluation on an outpatient basis. You were seen with complaints of chest pain. Your heart enzymes EKG and chest x-ray are normal your lab tests were also normal suspect some of this is musculoskeletal in nature. Will discharge you home if you follow-up with your primary care doctor (Please note that included in your discharge packet is information concerning opioid safety and pain management. 

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
[2025-04-02 09:34] LABS: Hematocrit 37.4 % (36-47); Hemoglobin 11.90 g/dL (11.27-16.99); Mean Corpuscular HGB Conc 31.8 g/dL (30-55); Mean Corpuscular Hemoglobin 30.1 pg (27-33); Mean Corpuscular Volume 94.7 fl (85-98); Nucleated Red Blood Cells % 0 %; Platelet Count 216 10^3/cmm (157-399); Red Blood Count 3.95 10^6/uL (3.85-5.65); White Blood Count 7.28 10^3/uL (3.29-11.43)
[2025-04-02 09:59] LABS: Troponin(5th) Baseline < 6 ng/L (0-10)
[2025-04-02 10:02] LABS: Alanine Aminotransferase 11 U/L (0-33); Albumin Level 4.5 g/dL (3.5-5.2); Alkaline Phosphatase 83 U/L (35-105); Anion Gap 15.4 (5-19); Aspartate Amino Transferase 9 U/L (0-32); Blood Urea Nitrogen 23 mg/dL (6-20); Calcium 9.5 mg/dL (8.5-10.5); Carbon Dioxide 29 mmol/L (22-29); Chloride 98 mmol/L (98-107); Creatinine Clr Calc Pharmacy 136.4573; Globulin 2.5 g/dL (1.3-4.6); Glucose 163 mg/dL (65-115); Osmolality Calculated 293 mOsm/kg (285-295); Potassium 4.4 mmol/L (3.5-5.1); Sodium 138 mmol/L (136-145); Total Protein 7.0 g/dL (6.6-8.7)
--- NOTE | 2025-04-02 11:13 | ECG_ITS ---
Credit Coach Test Date: 2025-04-02 Pat Name: Neeru Cedillo Department: Room: Gender: Female Front Desk Auxiliary: : 1970 Requested By: Arden Cook Order Number: [id number] Cleo MD: Bubba Rodas M.D. Measurements Intervals [place] Rate: 62 P: 53 TX: 186 QRS: 4 QRSD: 108 T: 9 QT: 431 QTc: 438 Interpretive Statements SINUS RHYTHM LOW QRS VOLTAGE IN PRECORDIAL LEADS [QRS DEFLECTION < 1.0 mV IN CHEST LEADS] Compared to ECG 04/02/2025 09:13:59 No significant changes Electronically Signed On 04-03-2025 21:33:50 CDT by Bubba Rodas M.D. [email or web address]
[2025-04-02 12:19] LABS: Troponin 5 2HR < 6.0 ng/L (0-10); Troponin 5 2HR Delta 0 ABS# (0-10)
== END 2025-04-02 13:07 | disposition home or self-care (01) ==
PROVIDERS: Emergency Provider Family Medicine; PCP Family Medicine
DX: R07.89 Other chest pain (principal); Z79.84 Long term (current) use of oral hypoglycemic drugs; E78.5 Hyperlipidemia, unspecified; E11.9 Type 2 diabetes mellitus without complications; I10 Essential (primary) hypertension; Z85.3 Personal history of malignant neoplasm of breast
CPT/HCPCS: 36415; 71045; 80053; 84484; 85025; 93005; 99285; J9999

== ENCOUNTER 2025-04-05 06:47 | Outpatient (CLI) | payer MEDICARE, SELFPAY ==
--- NOTE | 2025-04-05 06:58 | CT_ITS ---
WS: [id number] CT HEAD TECHNIQUE: Noncontrast and contrast-enhanced CT of the head. CLINICAL INFORMATION: NEW HEADACHE SYMPTOMS COMPARISON: 2016 DLP: 3543.[address] scans at [facility] use at least one of these dose optimization techniques: automated exposure control; mA and/or kV adjustment per patient size (includes targeted exams where dose is matched to clinical indication); or iterative reconstruction. FINDINGS: No evidence of intracranial hemorrhage or mass effect. No abnormal intracranial enhancement. Normal gutiérrez-white differentiation. No hydrocephalus. No extra-axial fluid collections. Vascular calcification. Paranasal sinuses and mastoid air cells are well aerated. CT/CT head wo/w con [id number] IMPRESSION: 1. No evidence intracranial hemorrhage or mass effect. 2. No abnormal intracranial enhancement. 3. Vascular calcification. 4. No other acute findings.
--- NOTE | 2025-04-05 07:01 | CT_ITS ---
WS: [id number] NONCONTRAST AND CONTRAST-ENHANCED CT LEFT SHOULDER INDICATION: LEFT shoulder pain decreased range of motion history of breast cancer TECHNIQUE: Noncontrast and contrast enhanced CT LEFT shoulder with coronal and sagittal reformatted images FINDINGS: Degenerative arthritis sternoclavicular joint. Advanced arthritis AC joint with moderate downsloping acromion. Narrowing of the subacromial space. No visualized bony lesion to indicate metastatic bony disease. Surgical clips LEFT axilla with postoperative seroma measuring 2.5 x 1.5 cm. Prominent surrounding scar tissue with dystrophic calcifications and fat necrosis extending about the seroma and chest wall. Vascular calcification. Coronary calcification. Moderate to advanced degenerative narrowing of the glenohumeral articulation. Chronic thinning of the supraspinatus. Infraspinatus appears grossly intact. Teres minor and subscapularis appear grossly intact. Rotator cuff would be better evaluated with MRI if concern. CT/CT Shoulder LT ww con [id number] IMPRESSION: 1. No evidence of metastatic disease LEFT shoulder. 2. Postoperative changes LEFT axillary lymph node dissection with postoperativ e seroma and surrounding fibrotic changes with dystrophic calcification and fat necrosis. 3. See additional nonacute findings described above
[2025-04-05] MEDS: iohexol 350 mg/mL 500 mL Btl (per mL) IV ×2 (08:40→08:41)
== END 2025-04-05 06:48 | disposition home or self-care (01) ==
PROVIDERS: PCP Family Medicine; Visit Provider Nurse Practitioner Adult Health
DX: M25.512 Pain in left shoulder (principal); M25.612 Stiffness of left shoulder, not elsewhere classified; C77.3 Secondary and unspecified malignant neoplasm of axilla and upper limb lymph nodes; Z17.1 Estrogen receptor negative status [ER-]; M79.602 Pain in left arm; I89.0 Lymphedema, not elsewhere classified
CPT/HCPCS: 70470; 73202